=== PATIENT | female | born 1940 | race Caucasian/White ===

== ENCOUNTER 2017-10-27 11:29 | Outpatient (CLI) | payer MEDICARE, OTHER | END 2017-10-27 11:30 | disposition home or self-care (01) | LOC: BICMAMMO 11:29 | PROVIDERS: ATTEND Family Medicine | DX: Z12.31 Encounter for screening mammogram for malignant neoplasm of breast (principal); N64.89 Other specified disorders of breast | CPT/HCPCS: 77063; 77067 ==

== ENCOUNTER 2017-11-10 09:41 | Outpatient (CLI) | payer MEDICARE, OTHER | END 2017-11-10 09:42 | disposition home or self-care (01) | LOC: BICMAMMO 09:41 | PROVIDERS: ATTEND Family Medicine | DX: N64.89 Other specified disorders of breast (principal); Z80.3 Family history of malignant neoplasm of breast | CPT/HCPCS: 77065; G0279 ==

== ENCOUNTER 2018-04-29 16:39 | Inpatient (IN) | payer MEDICARE, OTHER ==
[~2018-04-29 16:39] MED LIST: ISOVUE-370 76%-LOCM 1 ML ONE; Iopamidol 370 76% 50 ML VIAL FS ONE
[2018-04-29 17:36] LABS: #Eosinphils 0.1 thou/uL (0.0-0.7); #Lymphocytes 4.1 thou/uL (1.20-3.40); #Monocytes 0.7 thou/uL (0.11-0.59); #Neutrophils 8.3 thou/uL (1.40-6.50); %Basophils 0.2 % (0.0-1.0); %Eosinophils 0.8 % (0.0-10.0); %Lymphocytes 30.7 % (21.0-51.0); %Monocytes 5.5 % (0.0-10.0); %Neutrophils 62.8 % (42.0-75.0); Hemoglobin 12.2 g/dL (12.0-16.0); Mean Corpuscular HGB CONC 34.1 g/dL (32.0-36.0); Mean Corpuscular Hemoglobin 30.2 pg (27.0-31.0); Mean Corpuscular Volume 88.7 fL (78.0-98.0); Platelet Count 249 thou/uL (130-400); RBC Distribution Width 11.7 % (11.5-14.5); Red Blood Cell (RBC) Count 4.04 mill/uL (4.20-5.40); White Blood Cell (WBC) Count 13.2 thou/uL (4.8-10.8)
[2018-04-29 17:54] LABS: ALT (SGPT) 18 U/L (8-55); AST (SGOT) 21 U/L (5-34); Albumin 4.5 g/dL (3.4-4.8); Alkaline Phosphatase 95 U/L (40-150); Anion Gap 14 mmol/L (10-20); BUN (Urea Nitrogen) 23 mg/dL (9.8-20.1); Bilirubin, Total 0.4 mg/dL (0.2-1.2); Calc. Creatinine Clearance 0 mL/min (70-130); Calcium 10.3 mg/dL (7.8-10.44); Carbon Dioxide 27 mmol/L (23-31); Chloride 102 mmol/L (98-107); Estimated GFR-MDRD 49; Globulin 2.8 g/dL (2.4-3.5); Glucose 111 mg/dL (83-110); Lipase 16 U/L (8-78); Magnesium 2.9 mg/dL (1.6-2.6); Potassium 4.6 mmol/L (3.5-5.1); Protein, Total 7.3 g/dL (6.0-8.3); Sodium 138 mmol/L (136-145)
--- NOTE | 2018-04-29 19:59 | CT ---
CT ABDOMEN AND PELVIS 04/29/18 COMPARISON: None. HISTORY: Constipation, pain, evaluate for small bowel obstruction. TECHNIQUE: Serial axial CT imaging at 5 mm intervals from lung bases through pubic symphysis with intravenous an d oral contrast. Coronal reformatted imaging obtained. FINDINGS: Mild linear density noted in both lower lobes suggesting atelectasis. No free intraperitoneal air is noted. The liver, gallbladder, and spleen appear grossly unremarkable. The pancreas and adrenal glands are u nremarkable. Kidneys are grossly unremarkable as well. There is prominent stool seen throughout the colon as well as fluid material within the colon from th e level of the cecum through the level of the sigmoid colon. There is a transition from stool filled moderately distended colon to decompressed colon on image 69 is suspicious for an underlying colonic lesion. No evidence for small bowel obstruction is noted. There is a small hiatal hernia. Scattered small paraceliac and retroperitoneal nodes. No enlarged retroperitoneal nodes are seen. The re are mildly prominent nodes along the external iliac chain bilaterally and in the region of bilater al pelvic sidewalls. This includes right sided external iliac chain node measuring up to 1.1 cm in sh ort axis dimension, left external iliac chain node measuring up to 1.1 cm in short axis dimension, an d pelvic sidewall nodes measuring up to 8 mm on the right and 1 cm on the left. Uterus appears surgic ally absent. Osseous structures demonstrate no worrisome lytic or blastic bone lesion. There is lower lumbar spine facet hypertrophic change. Old fractures are seen involving bilateral sup erior and inferior pubic rami. IMPRESSION: The colon from the level of the cecum to the level of the sigmoid colon is moderately distended and c ontains stool and fluid material with a transition to a decompressed sigmoid colon with findings susp icious for an underlying colonic mass lesion on the basis of colon cancer. GI consultation for evalua tion via colonoscopy advised. Small nodes are seen within the retroperitoneum and mildly enlarged nod es are seen in the pelvis which could potentially be metastatic in nature. No discrete liver lesion i dentified. No evidence for small bowel obstruction or free intraperitoneal air. Results called to Dr. Fish at 7:35 p.m., 04/29/18. Code CR POS: MARI
--- NOTE | 2018-04-29 20:16 | RAD ---
PORTABLE SUPINE KUB: 04/29/18 COMPARISON: None. HISTORY: Abdominal pain. FINDINGS: there is contrast media within the urinary bladder and multiple nondistended loops of small bowel wit hin the central abdomen. No contrast media is appreciated within the colon. Supine imaging limits ass essment for obstruction and free intraperitoneal air. IMPRESSION: KUB as detailed above. POS: HAILE
[2018-04-29 20:47] LABS: Bilirubin Negative (Negative); Blood, Urine Negative (Negative); Clarity CLEAR (Clear); Glucose, Urine (Dipstick) Negative (Negative); Leukocyte Moderate (Negative); Nitrite Negative (Negative); Protein, Urine (Dipstick) Negative (Neg-Trace); Specific Gravity, Urine 1.017 (1.002-1.036); Urobilinogen 0.2 mg/dL (0.2-1.0); pH, Urine 7.5 (5.0-9.0)
[2018-04-29 20:48] LABS: Bacteria/HPF None Seen HPF (None Seen); Hyaline Casts/LPF 0-3 HYALINE CAST LPF (0-3 Hyaline); Pathc Cast-AUWi Flag 0.14 (0-2.49); RBC/HPF 0-3 HPF (0-3); Squamous Epithelial 0-3 HPF (0-3)
[2018-04-29] MEDS ORDERED: GoLYTELY 4,000 ml Bottle PO SCH (22:30)
--- NOTE | 2018-04-29 22:41 | CON ---
DATE OF CONSULTATION: 04/29/2018 REQUESTING PHYSICIAN: Dr. Fish ATTENDING SURGEON: Dr. Ansari. HISTORY OF PRESENT ILLNESS: The patient is an 78-year-old woman who presents to the [facility] with insidious onset of abdominal pain primarily 5 days ago. She does not recall havi ng any discomfort prior to this. She does have history of intermittent constipation, but she states this is her normal bowel pattern. The patient denies any recent weight loss or weight gain. No nigh t sweats or chills. Her last colonoscopy was [address] Knott which showed a polyp but otherw ise was unremarkable. Today, she presented to the Emergency Department because she was having increa sing pain and still no bowel movement. She states that she does pass some gas. She tried a bottle o f mag citrate half a bottle last night and the remainder this morning without any results. ALLERGIES: CODEINE and SULFA. CURRENT MEDICATIONS: Simvastatin, vitamin D3, enalapril, Detrol, amitriptyline. PAST MEDICAL HISTORY: Osteoporosis, hyperlipidemia, hypertension. PAST SURGICAL HISTORY: Hysterectomy. FAMILY MEDICAL HISTORY: Hypertension and diabetes. SOCIAL HISTORY: The patient denies drug, tobacco or alcohol use. She currently lives at home with h er . REVIEW OF SYSTEMS: Ten-point review of systems is negative, unless otherwise stated. PHYSICAL EXAMINATION: VITAL SIGNS: Blood pressure 144/101, heart rate 95, respirations 18, oxygen saturation 96% on room a ir, temperature is 99.6. GENERAL: The patient is resting comfortably in the ER bed. She is awake, alert, and oriented x3. HEENT: Head is normocephalic, atraumatic. Eyes: Extraocular motions intact. PERRLA bilaterally. Ears are atraumatic without discharge. Nose is atraumatic without discharge. Oropharynx is clear. NECK: Nontender. Trachea is midline with no JVD. LUNGS: Clear to auscultation with good inspiratory and expiratory effort. HEART: Regular rate and rhythm. ABDOMEN: Distended, slightly tense and minimally tender to palpation primarily to the lower extremit ies. The patient states that this bloating is new in part of her concern. Pelvis is stable. EXTREMITIES: Neurovascularly intact x4 with no pitting edema noted in the lower extremities. BACK: Nontender. Negative CVA tenderness. LABORATORY DATA: White blood cell count 13.1, hemoglobin 12.2, hematocrit 35.8, platelets 249. [place] um 138, potassium 4.6, chloride 102, CO2 is 27, BUN 23, creatinine 1.08, glucose 111. LFTs are unrem arkable. Lipase 16, magnesium 2.9. Urinalysis shows moderate leukocyte esterase, negative nitrite, 4-6 wbc's. RADIOGRAPHIC INTERPRETATIONS: CT of the abdomen and pelvis shows lesion in the colon causing a parti al large bowel obstruction. The colon from the level of the cecum to the level of the sigmoid colon is moderately distended and contains stool and fluid material with a transition to a decompressed sig moid colon with findings suspicious for an underlying colonic mass lesion. There are also noted with in the retroperitoneum, mildly enlarged nodes in the pelvis. There are no discrete lesions of the li diego identified or evidence of small-bowel obstruction or free intraperitoneal air. ASSESSMENT AND PLAN: 1. Colonic mass. 2. Abdominal pain. Our recommendation would be that the patient have a bowel prep with Bre shukla and GI consultat [facility] for colonoscopy to evaluate the mass and location. We will follow along for surgical interventio n as needed. The evaluation and examination were done with Dr. Ansari in the emergency department. Deny woods would also recommend ordering tumor markers tonradha.
[2018-04-29] MEDS ORDERED: Sodium Chloride 0.45% 1,000 ML IV SCH (23:45)
[2018-04-29 23:47] VITALS: BMI 24.7
[2018-04-29] MEDS: Fentanyl 100 MCG/2 ML VIAL SLOW IVP PRN (23:59)
[2018-04-30] MEDS: Fentanyl 100 MCG/2 ML VIAL SLOW IVP PRN (04:15)
[2018-04-30] MEDS ORDERED: Ondansetron HCl/PF 4 MG/2 ML Vial SLOW IVP PRN (06:27)
[2018-04-30] MEDS ORDERED: Ondansetron HCl/PF 4 MG/2 ML Vial SLOW IVP SCH (06:30)
[2018-04-30] MEDS ORDERED: Temazepam 15 MG CAP PO PRN (07:20)
[2018-04-30] MEDS ORDERED: Loratadine 10 MG TAB PO PRN (07:20)
[2018-04-30] MEDS ORDERED: cloNIDine 0.1 MG TAB PO PRN (07:20)
[2018-04-30] MEDS ORDERED: Ondansetron ODT 4 MG TAB PO PRN (07:20)
[2018-04-30] MEDS ORDERED: Sodium Chloride 0.65% Nasal 44 ML BOT EA NARE PRN (07:20)
[2018-04-30] MEDS ORDERED: Senokot 8.6 MG TAB PO PRN (07:20)
[2018-04-30] MEDS ORDERED: Mag-Al 1200 mg/1200 mg/30 ML UDCUP PO PRN (07:20)
[2018-04-30] MEDS ORDERED: Artificial Tears 18 DROP/0.9 ML EA EYE PRN (07:20)
[2018-04-30] MEDS ORDERED: Milk Of Magnesia 30 ML UDCUP PO PRN (07:20)
[2018-04-30] MEDS ORDERED: Eucerin (Mineral Oil/Petrolatum,White) 30 gm Jar TOP PRN (07:20)
[2018-04-30] MEDS ORDERED: Diabetic Tussin 200 MG/10 ML UDCUP PO PRN (07:20)
[2018-04-30] MEDS ORDERED: HYDROcodone/Acetaminophen 5/325 mg Tablet PO PRN (07:21)
[2018-04-30] MEDS ORDERED: Fleet Enema 133 ML BOT FS SCH (08:00)
[2018-04-30] MEDS: Calcium Carbonate + Vit D 1 TAB PO SCH ×2 (09:58→18:29)
[2018-04-30] MEDS ORDERED: Fleet Enema 133 ML BOT PR SCH (10:00)
[2018-04-30] MEDS: Sodium Chloride 0.9% 1,000 ML IV SCH ×3 (10:02→22:20)
[2018-04-30] MEDS: Multivitamin W/ Minerals 1 TAB PO SCH (10:03)
[2018-04-30] MEDS: Famotidine 20 MG TAB PO SCH (10:03)
[2018-04-30] MEDS: Enoxaparin Sodium 40 MG/0.4 ML SYRINGE SC SCH (10:03)
[2018-04-30] MEDS: DULoxetine 60 MG CAP PO SCH (10:03)
[2018-04-30] MEDS: Zinc Sulfate 220 MG CAP PO SCH (10:04)
[2018-04-30] MEDS: TROSPIUM 20 MG TABLET PO SCH (10:04)
[2018-04-30] MEDS ORDERED: Ertapenem 1 GM in Sodium Chloride 0.9% 100 ML IVPB PRN (10:30)
--- NOTE | 2018-04-30 10:43 | HP ---
PRIMARY CARE PHYSICIAN: Dr. Joyce Tony. REASON FOR ADMISSION: Lower abdominal pain, suspected for large bowel partial obstruction. HISTORY OF PRESENT ILLNESS: An 78-year-old female who came to emergency room last night with complaint of lower abdominal pain. The patient reports that her last bowel movement was on Tuesday. Since then, she did not have any bowel movement. She was feeling constipated. She was feeling her abdomen was bloated and distended. She was having continuous intermittent, crampy abdominal pain. She was not having nausea and vomiting at home, but when she started preparing herself with GoLYTELY last night, she felt even more bloated and had vomiting and feeling nausea. She denies any weight loss. Her appetite was normal. She did not have any hematochezia or melena. She did not have any fever or chills. Patient reports that about 3 years ago she had a colonoscopy done by Dr. Knott which showed polyp which was removed and the patient was instructed to get repeat colonoscopy in 5 years. Last night, the patient was evaluated in the emergency room. She had a CT of the abdomen and pelvis which showed colon from the level of cecum to the level of sigmoid colon , was distended and contained fluid and stool. There was concern of colonic mass and that is why the General Surgery was consulted from ER and subsequently GI was also consulted. When I saw this morning, the patient was feeling sleepy as she did not sleep from GoLYTELY preparation. Her was present at bedside who provided history. PAST MEDICAL HISTORY: Dyslipidemia, hypertension, history of colon polyp, osteoporosis/osteopenia. PAST SURGICAL HISTORY: Hysterectomy, colonoscopy with polypectomy. PAST PSYCHIATRIC HISTORY: Anxiety and depression. SOCIAL HISTORY: Patient is and lives at home with her . No history of tobacco, alcohol or illicit drug abuse. The patient is retired. FAMILY HISTORY: No strong family history of premature CAD< CVA or cancer. ALLERGIES: CODEINE and SULFA. CURRENT HOME MEDICATIONS: Zocor 20 mg p.o. at bedtime, vitamin D3 one tablet daily, enalapril 7.5 mg p.o. daily, Detrol 1 mg daily, amitriptyline 25 mg p.o. daily, Cymbalta 60 mg p.o. daily, multivitamin 1 tablet p.o. daily, zinc sulfate 220 mg daily, [place] 5 one tablet q.4 hourly p.r.n. REVIEW OF SYSTEMS: REVIEW OF SYSTEMS: The following complete review of systems was negative, unless otherwise mentioned in the HPI or below: Constitutional: Weight loss or gain, ability to conduct usual activities. Skin: Rash, itching. Eyes: Double vision, pain. ENT/Mouth: Nose bleeding, neck stiffness, pain, tenderness. Cardiovascular: Palpitations, dyspnea on exertion, orthopnea. Respiratory: Shortness of breath, wheezing, cough, hemoptysis, fever or night sweats. Gastrointestinal: Poor appetite, abdominal pain, heartburn, nausea, vomiting, constipation, or diarrhea. Genitourinary: Urgency, frequency, dysuria, nocturia. Musculoskeletal: Pain, swelling. Neurologic/Psychiatric: Anxiety, depression. Allergy/Immunologic: Skin rash, bleeding tendency. Please see my HPI for pertinent positive and negative. All other review of systems reviewed and negative except as mentioned in the HPI. EMERGENCY ROOM COURSE: Patient was given GoLYTELY and IV fluid. PHYSICAL EXAMINATION: VITAL SIGNS: On arrival, blood pressure 153/80, pulse 109, respiratory rate 18 , temperature 99.6, saturation 97% on room air, weight 60.9 kilograms. GENERAL: Patient is currently sleepy from not having sleep last night, mild discomfort. The patient is hungry. HEENT: Head, normocephalic, atraumatic. Eyes: Pupils round, reactive to light. Extraocular muscle intact. ENT: Dry appearing mucous membrane, no oral lesion, no pharyngeal erythema, no exudate. NECK: Supple, no JVD, no meningeal signs of irritation. LUNGS: Clear to auscultation without any rhonchi or rales. CARDIAC: S1, S2 regular. No murmur, no gallop, no rub. ABDOMEN: Slightly bloated, diffusely tender in lower part. Bowel sounds hypoactive. Mild distention noted. No peritoneal sign, no guarding, no rigidity, no rebound. BACK: Unremarkable, no CVA tenderness. EXTREMITIES: Upper extremity passive movement of all joints are normal. Lower extremity passive movement of all joints are normal. No edema. Good distal pulsation, no calf tenderness. SKIN: No skin rash. HEMATOLOGICAL: No lymphadenopathy. PSYCHIATRIC: Normal affect. NEUROLOGIC: Nonfocal examination. SIGNIFICANT LABORATORY DATA: Abdomen and pelvis done in the emergency room which showed colon from the level of cecum to the level of sigmoid colon is distended with stool and fluid suspicious for underlying colonic mass, small lymph nodes noted in the retroperitoneum and mildly enlarged lymph nodes in pelvis. X-ray abdomen showed no acute process, distended loops of small bowel. CBC: WBC 13.2, hemoglobin 12.2, platelet 249. BMP: Sodium 138, potassium 4.6, chloride 102, carbon dioxide 27, anion gap 14, BUN 23, creatinine 1.08, glucose 111, calcium 10.3, magnesium 2.9. LFT: AST 21, ALT 18, alkaline phosphatase 95, albumin 4.5. CEA 0.77, lipase 16. Urinalysis, leukocyte moderate. ASSESSMENT AND PLAN: 1. Nausea, vomiting, lower abdominal pain, abdominal distention with CT finding of stool fluid level in the cecum to sigmoid colon, suspected for partial large bowel obstruction secondary to colonic mass. The patient is getting GoLYTELY preparation and patient will need a colonoscopy for further evaluation. Depending upon finding, the patient will need a biopsy of the lesion and then General Surgery already on the case and they will decide when to do surgery if needed. The patient's prefers to be done on Tuesday because he is off his dialysis days, so he can stay with about. The patient reports that she cannot stay longer n.p.o. and per her she wants surgery in case if needed, then it can be done any time. Her pain will be controlled with morphine p.r.n. basis with GI already consulted, General Surgery already consulted. GI will do colonoscopy later on today. The patient is n.p.o. The patient is getting IV fluid. 2. Hypertension. If blood pressure allows, then we will continue enalapril 10 mg p.o. daily. 2. Dyslipidemia. We will continue Lipitor 10 mg p.o. at bedtime. 3. Anxiety and depression. We will continue Cymbalta 60 mg p.o. daily. 5. Mild dehydration. The patient is on IV fluid. 6. Asymptomatic bacteriuria. We will send urine culture. 7. Deep venous thrombosis prophylaxis. Lovenox 40 mg subcu daily. Gastrointestinal prophylaxis, Pepcid 20 mg p.o. daily. CODE STATUS: The patient is FULL CODE. Patient's is surrogate decision maker. Disposition plan based on clinical course. In case if this patient needs any surgery, then her stay will be more than 2 midnights. Plan of care discussed with the patient and her at bedside. SAMYD
--- NOTE | 2018-04-30 12:14 | CON ---
DATE OF CONSULTATION: 04/30/2018 GI INPATIENT CONSULTATION NOTE REQUESTING PHYSICIAN: Dr. Ansari. REASON FOR CONSULTATION: Colonic obstruction. HISTORY OF PRESENT ILLNESS: Gena Lerner is a very pleasant 78-year-old woman who has previously b een seen by my GI colleague, Dr. Jose Knott. She has had a couple of colonoscopies in the past. Her last colonoscopy was in 11/2014 and this demonstrated two small right-sided colon polyps, they were both removed. One was a tubular adenoma and the other was hyperplastic. The patient has no chronic abdominal symptoms except for some tendency toward constipation. However, for the past week, she has had a slowly progressive abdominal pain in the lower abdomen and especially in the left side of the abdomen. This has come along with worsening constipation. She had no bowel movement over the past w makah. There has been no recent weight loss, fever or night sweats or chills. She had no nausea or vo miting until this morning. The pain and distention worse and then she presented for evaluation. She had a CT scan which appears to show a colonic obstruction at the level of the sigmoid colon with fin dings suspicious for underlying colonic mass lesion. She drank about 3/4 of a bowel prep overnight a nd then eventually had vomiting of clear emesis. She has had a couple of large bowel movements since then, though these are not really clear. Dr. Ansari ordered some enemas to be given this morning as well. We are consulted for further evaluation of what appears to be a sigmoid mass causing colonic o bstruction. REVIEW OF SYSTEMS: Full review of systems including constitutional, head, eyes, ears, nose, throat, GI, , cardiovascular, respiratory, musculoskeletal, and neurologic systems is negative except as no ximena in the HPI. PAST MEDICAL HISTORY: Osteoporosis, hyperlipidemia, hypertension. PAST SURGICAL HISTORY: Hysterectomy. FAMILY HISTORY: Significant for hypertension and diabetes. SOCIAL HISTORY: No tobacco, alcohol, or drug use. She lives at home with her . ALLERGIES: CODEINE and SULFA. OUTPATIENT MEDICATIONS: Simvastatin, vitamin D3, enalapril, Detrol, amitriptyline. PHYSICAL EXAMINATION: VITAL SIGNS: Temperature 98.3, pulse 94, blood pressure 128/79, 96% oxygen saturation on room air. GENERAL: An 78-year-old woman lying in bed comfortably, in no distress. NEUROLOGIC: She is alert and oriented. She is able to answer questions appropriately. SKIN: No jaundice, no rash visible or palpable. EYES: No scleral icterus. Extraocular movements intact. ENT: Mucous membranes moist, no oral lesions. LYMPH: No submandibular, supraclavicular lymphadenopathy. THYROID: Nontender to palpation. HEART: Regular rate and rhythm. LUNGS: Clear to auscultation bilaterally. ABDOMEN: Bowel sounds are hypoactive. The abdomen is moderately distended and dull to percussion. She is tender to palpation diffusely, but particularly in the left side and in the lower abdomen. No guarding or rebound tenderness. EXTREMITIES: No peripheral edema. VESSELS: Radial pulses 2+ bilaterally. NEUROLOGICAL: Cranial nerves II-XII intact bilaterally. No focal deficits. LABORATORY STUDIES: WBC 13.2, hemoglobin 12.2, MCV 88.7, platelets 249. Sodium 138, potassium 4.6, BUN 23, creatinine 1.08, magnesium 2.9, total bilirubin 0.4, alkaline phosphatase 95, AST 21, ALT 18, albumin 4.5, lipase 16. CEA is only 0.77. Urinalysis shows 4-6 wbc's and moderate leukocyte estera se. IMPRESSION AND PLAN: 1. Colonic obstruction per CT scan. 2. Possible sigmoid mass per CT scan. The patient's presentation and imaging findings are concernin g for possible mass lesion in the sigmoid colon, now causing obstructive symptoms. She has done the best that she could with the bowel prep and is getting further enema prep this morning. Dr. Elan razo requested endoscopic evaluation today for further diagnosis, with eventual surgery likely. I agree with this plan. We will plan for lower endoscopic evaluation later today and keep in touch with the surgical service. I discussed this with the patient and her that they desire to proceed. Thank you for the consultation. Please call any time with questions or concerns.
[2018-04-30] MEDS ORDERED: Fentanyl 100 MCG/2 ML VIAL ONE (12:21)
[2018-04-30] MEDS ORDERED: Midazolam HCl 2 mg/2 ml Vial ONE (12:21)
[2018-04-30] MEDS ORDERED: Sodium Chloride 0.9% 20 ML ONE (12:46)
[2018-04-30] MEDS ORDERED: PHENYLEPHRINE-NS 100 MCG/ML 10 ML SYRINGE ONE ×2 (13:30→14:18)
[2018-04-30] MEDS ORDERED: PROPOFOL 200 MG/20 ML VIAL ONE ×2 (13:30)
[2018-04-30] MEDS ORDERED: Calcium Chloride 1 GM/10 ML Abboject SYRINGE ONE (13:30)
[2018-04-30] MEDS ORDERED: Ondansetron HCl/PF 4 MG/2 ML Vial ONE (13:30)
[2018-04-30] MEDS ORDERED: Succinylcholine Chloride 20 MG/ML 10 ml SYRINGE FS ONE (13:30)
[2018-04-30] MEDS ORDERED: Ondansetron HCl/PF 4 MG/2 ML Vial IVP PRN (16:04)
[2018-04-30] MEDS ORDERED: Promethazine HCl 25 MG/ML VIAL IM PRN ×2 (16:04→16:10)
[2018-04-30] MEDS ORDERED: Promethazine HCl 25 MG/ML VIAL SLOW IVP PRN (16:04)
[2018-04-30] MEDS ORDERED: diphenhydrAMINE 50 MG/ML VIAL IVP PRN (16:10)
[2018-04-30] MEDS ORDERED: diphenhydrAMINE 25 MG CAP PO PRN (16:10)
[2018-04-30] MEDS ORDERED: HYDROmorphone 10 mg/100 ml CADD IVPB PRN (16:10)
[2018-04-30] MEDS ORDERED: Naloxone HCl 0.4 mg/ml Vial IV PRN (16:10)
[2018-04-30] MEDS ORDERED: diphenhydrAMINE 50 MG/ML VIAL IM PRN (16:10)
[2018-04-30] MEDS ORDERED: Communication Order-Pharmacy FS SCH (16:15)
--- NOTE | 2018-04-30 17:48 | RAD ---
FRONTAL RADIOGRAPH CHEST: Date: 04-30-18 Comparison: 01-22-15 History: Evaluate line placement. FINDINGS: The patient is imaged in the supine position, limiting assessment for pneumothorax and pleural fluid. There is a right sided vascular catheter, distal tip overlying the region of the right atrium. Nasog astric tube and Dobbhoff tube extend into the epigastric region. No lobar consolidation or alveolar e sidney. IMPRESSION: Lines and tubes as above. POS: HAILE
--- NOTE | 2018-04-30 17:51 | RAD ---
KUB: Date: 04-30-18 Comparison: 04-29-18 History: Abdominal pain. FINDINGS: There is contrast media within the right abdomen, likely within dilated colon. Nasogastric tube exten ds into the region of the gastric body. Dobbhoff feeding tube extends into the region of the proximal jejunum. Supine imaging limits assessment for free air and small bowel obstruction. IMPRESSION: KUB as above. POS: HAILE
--- NOTE | 2018-04-30 17:51 | OP ---
DATE OF SURGERY: 04/30/2018 GASTROINTESTINAL ENDOSCOPY NOTE SURGEON: Gustavo Thompson M.D. BLACK OXIDE OPERATOR SURGEON: None. PROCEDURE: Flexible sigmoidoscopy. POSTOPERATIVE DIAGNOSES: 1. Sigmoid mass. 2. Colonic obstruction secondary to sigmoid mass based on imaging. This is a preoperative endoscopi c assessment prior to planned surgery. MEDICATIONS: See anesthesia record. FINDINGS: After discussion of the risks, benefits and alternatives of the procedure, informed consen t was obtained and witnessed. Pre-endoscopic cardiopulmonary examination was satisfactory. Timeout was performed before sedation was achieved. Sedation was achieved with anesthesia assistance in the endoscopy unit. Digital rectal exam was performed. This demonstrated some moderate rectal prolapse as well as large external hemorrhoids. A Pentax adult colonoscope was inserted into the anus and pas sed forward in the usual fashion. The patient's rectum and sigmoid colon had a large amount of solid stool. This made visualization difficult due to the large amount of stool, I was unable to examine beyond 20 cm. I was not able to reach the area in question where visualized, the colonic mucosa appe ared normal. The colonoscope was completely withdrawn and the patient was moved to the operating ayleen m. I discussed the case with Dr. Ansari. There were no immediate post-procedure complications. The patient tolerated the procedure well. IMPRESSION: 1. Solid stool obscuring view of the rectum and sigmoid colon. Examined to 20 cm. 2. External hemorrhoids. 3. Rectal prolapse. RECOMMENDATION: Proceed with surgery. I discussed with Dr. Ansari.
[2018-04-30] MEDS: Ketorolac Tromethamine 30 MG/ML VIAL IVP SCH (18:32)
[2018-04-30] MEDS: Atorvastatin Calcium 10 MG TAB PO SCH (21:00)
--- NOTE | 2018-04-30 21:40 | OP ---
DATE OF OPERATION: 04/30/2018 PREOPERATIVE DIAGNOSIS: Acute large bowel obstruction. POSTOPERATIVE DIAGNOSIS: Acute large bowel obstruction. OPERATIONS PERFORMED: 1. Placement of left subclavian central venous catheter. 2. Exploratory laparotomy. 3. Sigmoidectomy with end colostomy. 4. Placement of feeding nasojejunal tube. SURGEON: Artem Ansari D.O. ANESTHESIA: General endotracheal. ESTIMATED BLOOD LOSS: 200 mL FLUIDS GIVEN: 3500 mL crystalloids. INSTRUMENTS: Sponge and instrument count certified as correct x2. URINARY OUTPUT: 250 mL COMPLICATIONS: None apparent at the time of operation. INDICATIONS FOR PROCEDURE: An 78-year-old woman presented to the emergency department with over 1-week history of no bowel movement or flatus. The patient underwent a CT scan of the abdomen and pelvis which revealed an obstructing sigmoid colonic mass. We attempted to bowel prep this patie nt in lieu of a colonoscopy without success. Flexible sigmoidoscopy was attempted by Gastroenterolog y again without success. The patient was brought to the operating room for exploration. FINDINGS: Consistent with distal sigmoid colon obstruction with markedly thick walled colonic wall. No evidence of perforation or abscess. DESCRIPTION OF PROCEDURE: Informed consent was obtained from the patient who was brought to the oper ating room and placed in supine position. Following general anesthesia, Terry catheter was placed to bedside drain. Nasogastric tube was inserted and placed to wall suction. Right chest wall was ster ilely prepped and draped in usual fashion. The skin below the right clavicle was anesthetized with 1 % lidocaine. Right subclavian vein was cannulated with an 18-gauge introducer needle returning dark venous blood. A guidewire was passed through this needle and placed in the right subclavian vein wit hout resistance. Needle was withdrawn over the guidewire. A stab incision was made adjacent to the guidewire using an 11 scalpel. The dilator was passed over the guidewire dilating subcutaneous tissu es. Dilator was removed and a triple-lumen central venous catheter was advanced over the guidewire a nd placed in the right subclavian vein without resistance and stopping at the 15 cm julian. Guidewire was removed. Dark venous blood was aspirated from all 3 ports which were individually flushed with s mamta. Catheter was secured to anterior chest wall using 3-0 silk suture at 2 points. Sterile dress ing was applied. I then turned my attention to the abdomen which was sterilely prepped and draped in usual fashion. I went and scrubbed, gowned and regloved sterilely. A midline incision was made using #10 scalpel. Incision was carried through the subcutaneous tissues maintaining hemostasis using cautery. Fascia was incised in midline exposing the peritoneum beneath which was grasped x2 with hemostats. The peritoneal cavity was sharply entered using scalpel. Inci alejo was then extended superiorly and posteriorly. Markedly dilated loops of the large intestine wer e encountered involving all large bowels to the level of the distal sigmoid colon. Small bowel was r un from the ligament of Treitz down to terminal ileum, finding no masses. Liver was palpated free of any abnormalities. Normal gallbladder was noted in the usual anatomic location. Spleen was palpate d in the left upper quadrant. No masses present. The previous nasogastric tube was palpated within the gastric lumen. At this juncture, feeding nasojejunal tube was inserted by Anesthesia, tip of whi ch was palpated by myself within the gastric lumen. I manipulated the tip of this catheter into prox imal small bowel without resistance. I then turned my attention to the colon. It was decided to pro ceed with a sigmoidectomy. The left colon was mobilized along the white line of Toldt. This was acc omplished using Metzenbaum scissors alternated with cautery. I mobilized the colon towards the pelvi s approaching a hard, but partially mobile mass within the sigmoid colon. Dissection was carried cristhian n through the distal part of this to the level of normal caliber rectosigmoid junction. I then creat ed a rent through the mesorectum through which a contour stapler was introduced and the bowel was div ided. I mobilized the left colon then upwards, taken down the splenic flexure using cautery with goo d hemostasis. Care was taken to avoid injury to underlying bowel. Once this was accomplished, I the n made a rent through the descending colon mesentery about the junction of the descending and sigmoid colon. Reloaded contour stapler was introduced and the bowel was divided. Mesentery of the sigmoid colon specimen was serially divided using LigaSure device with good hemostasis. The specimen was pa ssed off the operative field for pathology. Operative site was copiously irrigated with saline, noti ng good hemostasis in place. I then proceeded to make a core incision in the left lower quadrant are a chosen for colostomy. This was accomplished using #10 scalpel. The incision was carried down to t he level of the fascia. A crucifix incision was made here using cautery. I introduced a tonsil clam p through this defect bringing this into the peritoneal cavity. The core defect was dilated to 3 fin gerbreadths. A Pauline forceps was then introduced through this defect, grasping the staple end of t he descending colon which was pulled through and secured within the abdominal cavity using 3-0 silk s uture at 3 points. At this juncture, all sponges and instruments were removed and accounted for. I placed two stay sutures at both ends of the rectal stump. This was done using a 2-0 Prolene. I then placed a sheet of Seprafilm in the deep pelvis and returned the small bowel to normal anatomic locat ion. A second sheet of Seprafilm was placed over the small bowel and omentum was drawn over the rest of the viscera. Fascia was approximated in the midline using a running stitch of #1 single stranded PDS. Subcutaneous tissues were pulse lavaged with 3 liters of sterile saline. At this juncture, we proceeded to change gown and gloves with fresh instruments. Deep subcutaneous t issues were approximated using interrupted sutures of 3-0 Vicryl. Skin incision was closed using a r unning stitch of 3-0 Monocryl suture in subcuticular fashion. Dermabond was applied over incisional closure. I then turned my attention to the colostomy site. Staple line was excised using Zuniga sciss ors. A functional Annette colostomy was perfected using interrupted sutures of 2-0 chromic. Colostom y appliance was then put in place. The patient tolerated the operation without any apparent complication and was returned to recovery ro in satisfactory condition.
[2018-05-01] MEDS: Ketorolac Tromethamine 30 MG/ML VIAL IVP SCH ×5 (00:32→23:37)
[2018-05-01 04:32] LABS: #Lymphocytes 2.7 thou/uL (1.20-3.40); #Neutrophils 10.1 thou/uL (1.40-6.50); %Eosinophils 0.1 % (0.0-10.0); %Lymphocytes 19.6 % (21.0-51.0); %Neutrophils 73.3 % (42.0-75.0); Hemoglobin 11.2 g/dL (12.0-16.0); Mean Corpuscular HGB CONC 32.4 g/dL (32.0-36.0); Mean Corpuscular Hemoglobin 28.9 pg (27.0-31.0); Mean Corpuscular Volume 89.2 fL (78.0-98.0); Mean Platelet Volume 8.5 fL (7.4-10.4); Platelet Count 280 thou/uL (130-400); RBC Distribution Width 11.8 % (11.5-14.5); Red Blood Cell (RBC) Count 3.89 mill/uL (4.20-5.40); White Blood Cell (WBC) Count 13.8 thou/uL (4.8-10.8)
[2018-05-01] MEDS: Sodium Chloride 0.9% 1,000 ML IV SCH ×2 (04:59→12:06)
[2018-05-01 05:04] LABS: ALT (SGPT) 33 U/L (8-55); AST (SGOT) 31 U/L (5-34); Albumin 2.8 g/dL (3.4-4.8); Alkaline Phosphatase 74 U/L (40-150); Anion Gap 11 mmol/L (10-20); BUN (Urea Nitrogen) 27 mg/dL (9.8-20.1); Bilirubin, Total 0.4 mg/dL (0.2-1.2); Calc. Creatinine Clearance 48 mL/min (70-130); Calcium 7.7 mg/dL (7.8-10.44); Carbon Dioxide 26 mmol/L (23-31); Chloride 106 mmol/L (98-107); Estimated GFR-MDRD 63; Globulin 1.7 g/dL (2.4-3.5); Glucose 158 mg/dL (83-110); Magnesium 3.5 mg/dL (1.6-2.6); Phosphorus 3.7 mg/dL (2.3-4.7); Potassium 4.9 mmol/L (3.5-5.1); Protein, Total 4.5 g/dL (6.0-8.3); Sodium 138 mmol/L (136-145)
[2018-05-01] MEDS ORDERED: Prevnar 13-Val Conj/PF 0.5 ML SYRINGE IM ONE (09:00)
[2018-05-01] MEDS: Calcium Carbonate + Vit D 1 TAB PO SCH ×2 (09:05→17:13)
[2018-05-01] MEDS: Famotidine 20 MG TAB PO SCH (09:06)
[2018-05-01] MEDS: TROSPIUM 20 MG TABLET PO SCH (09:06)
[2018-05-01] MEDS: Multivitamin W/ Minerals 1 TAB PO SCH (09:06)
[2018-05-01] MEDS: Zinc Sulfate 220 MG CAP PO SCH (09:06)
--- NOTE | 2018-05-01 09:23 | PRG ---
DATE OF SERVICE: 05/01/2018 SUBJECTIVE: Dr. Ansari performed a sigmoidectomy with colostomy yesterday afternoon. The procedure w ent well. The patient is currently doing well, hemodynamically stable in the ICU, abdominal pain is minimal. She has a nasogastric tube with atrophic feeds going. There is no output from the colostom y as yet. PHYSICAL EXAMINATION: VITAL SIGNS: Temperature 98.1, blood pressure 123/66, pulse 100, 95% oxygen saturation on room air. GENERAL: No acute distress. HEART: Regular rate and rhythm. LUNGS: Clear to auscultation bilaterally. ABDOMEN: Bowel sounds are hypoactive, soft, some mild diffuse tenderness to palpation. Colostomy si te looks good. EXTREMITIES: No peripheral edema. LABORATORY STUDIES: WBC 13.8, hemoglobin 11.2, platelets 280. Sodium 138, potassium 4.9. BUN 27, c reatinine is 0.87. Glucose 158, magnesium 3.5. LFTs normal. Note that CEA level was normal at 0.77 . ASSESSMENT AND PLAN: Sigmoid obstruction secondary to a sigmoid mass, now status post sigmoidectomy with colostomy placement. Awaiting return of bowel function. Dietary advancement per the surgical t eam. We will follow along with the results of pathology. Otherwise, please let us know if we can be of any further assistance.
[2018-05-01] MEDS: DULoxetine 60 MG CAP PO SCH (09:43)
[2018-05-01] MEDS: Enoxaparin Sodium 40 MG/0.4 ML SYRINGE SC SCH (09:44)
[2018-05-01] MEDS: Famotidine/PF 20 mg/2ml Vial SLOW IVP SCH (09:44)
[2018-05-01] MEDS ORDERED: MEROPENEM 1 GM/50 ML 1 GM in Premix Bag 1 BAG IVPB SCH (11:45)
--- NOTE | 2018-05-01 13:05 | PDOC.PN ---
- Subjective Encounter Start Date: 05/01/18 Encounter Start Time: 08:45 pt had colonoscopy and then she required laparotomy and sigmoid resection and colostomy, she has NJ tube, she is NPO, doing well after surgery - Objective Resuscitation Status: Resuscitation Status FULL:Full Resuscitation MAR Reviewed: Yes Vital Signs & Weight: Vital Signs (12 hours) Temp Pulse Resp Pulse Ox 05/01/18 08:00 98.1 F 96 22 H 96 05/01/18 07:14 93 L 05/01/18 04:00 98.9 F Weight Weight 131 lb Most Recent Monitor Data Heart Rate from ECG 103 NIBP 133/49 NIBP BP-Mean 73 Respiration from ECG 23 SpO2 94 I&O: 04/30/18 05/01/18 05/02/18 06:59 06:59 06:59 Intake Total 2315 1790 Output Total 550 133 Balance 2315 1240 -133 Result Diagrams: 05/01/18 03:30 05/01/18 03:30 Additional Labs: Accuchecks 04/30/18 14:25 POC Glucose 161 H EKG Reviewed by me: Yes (nsr) Phys Exam - Physical Examination Constitutional: NAD HEENT: PERRLA, moist MMs, sclera anicteric NJ tube+ Neck: no JVD, supple central line+ Respiratory: no wheezing, no rales, no rhonchi Cardiovascular: RRR, no significant murmur, no rub Gastrointestinal: soft surgical site clean, colostomy+ Musculoskeletal: no edema, pulses present Neurological: non-focal, normal sensation, moves all 4 limbs Lymphatic: no nodes Psychiatric: normal affect, A&O x 3 Skin: no rash, normal turgor Dx/Plan (1) Large bowel obstruction Code(s): K56.609 - UNSP INTESTNL OBST, UNSP TO PARTIAL VERSUS COMPLETE OBST Status: Acute (2) S/P laparotomy Status: Acute (3) Anxiety and depression Code(s): F41.9 - ANXIETY DISORDER, UNSPECIFIED; F32.9 - MAJOR DEPRESSIVE DISORDER, SINGLE EPISODE, UNSPECIFIED Status: Chronic (4) Dyslipidemia Code(s): E78.5 - HYPERLIPIDEMIA, UNSPECIFIED Status: Chronic (5) Hypertension Code(s): I10 - ESSENTIAL (PRIMARY) HYPERTENSION Status: Chronic - Plan cont current plan of care, plan discussed w/ family * medication reviewed as below * symptomatic treatment * continue post operative care as per surgeon * await GI function to return * discussed with * diet advancement as per surgeon * follow up on pathology report * colostomy care. Review of Systems - Review of Systems Eyes: negative: Pain, Vision Change, Conjunctivae Inflammation, Eyelid Inflammation, Redness, Other ENT: negative: Ear Pain, Ear Discharge, Nose Pain, Nose Discharge, Nose Congestion, Mouth Pain, Mouth Swelling, Throat Pain, Throat Swelling, Other Respiratory: negative: Cough, Dry, Shortness of Breath, Hemoptysis, SOB with Excertion, Pleuritic Pain, Sputum, Wheezing Cardiovascular: negative: chest pain, palpitations, orthopnea, paroxysmal nocturnal dyspnea, edema, light headedness, other Gastrointestinal: negative: Nausea, Vomiting, Abdominal Pain, Diarrhea, Constipation, Melena, Hematochezia, Other Genitourinary: negative: Dysuria, Frequency, Incontinence, Hematuria, Retention , Other Musculoskeletal: negative: Neck Pain, Shoulder Pain, Arm Pain, Back Pain, Hand Pain, Leg Pain, Foot Pain, Other Skin: negative: Rash, Lesions, Octavio, Bruising, Other - Medications/Allergies Allergies/Adverse Reactions: Allergies Allergy/AdvReac Type Severity Reaction Status Date / Time codeine Allergy Intermediate Hives Verified 01/21/16 18:37 Sulfa (Sulfonamide Allergy Verified 01/21/16 16:08 Antibiotics) Medications: Current Medications Acetaminophen (Tylenol) 650 mg PO Q4H PRN PRN Reason: Headache/Fever or Mild Pain Al Hydroxide/Mg Hydroxide (Maalox) 15 ml PO Q4H PRN PRN Reason: Heartburn or Indigestion Artificial Tears (Tears Naturale) 0 drop EA EYE PRN PRN PRN Reason: Dry Eyes Atorvastatin Calcium (Lipitor) 10 mg PO [facility] Last Admin: 04/30/18 21:00 Dose: Not Given Calcium/Vitamin D (Caltrate 600 + Vit D) 1 tab PO BID-[facility] Last Admin: 05/01/18 09:05 Dose: Not Given Clonidine (Catapres) 0.1 mg PO Q4H PRN PRN Reason: Systolic BP > 180 Diphenhydramine HCl (Benadryl) 25 mg IVP Q3H PRN PRN Reason: Itching Diphenhydramine HCl (Benadryl) 25 mg PO Q3H PRN PRN Reason: Itching Diphenhydramine HCl (Benadryl) 25 mg IM Q3H PRN PRN Reason: Itching Duloxetine HCl (Cymbalta) 60 mg PO DAILY [facility] Last Admin: 05/01/18 09:43 Dose: 60 mg Enalapril Maleate (Vasotec) 10 mg PO DAILY [facility] Last Admin: 05/01/18 09:05 Dose: Not Given Enoxaparin Sodium (Lovenox) 40 mg SC 0900 [facility] Last Admin: 05/01/18 09:44 Dose: 40 mg Famotidine (Pepcid) 20 mg SLOW IVP DAILY [facility] Last Admin: 05/01/18 09:44 Dose: 20 mg Guaifenesin (Robitussin Sf) 200 mg PO Q4H PRN PRN Reason: Cough Hydralazine HCl (Apresoline) 10 mg SLOW IVP Q4H PRN PRN Reason: Systolic BP > 180 Hydromorphone HCl (Dilaudid Cadd) 0 mg IVPB INF PRN PRN Reason: Pain Sodium Chloride (Normal Saline 0.9%) 1,000 mls @ 100 mls/hr IV .Q10H [facility] Last Admin: 05/01/18 12:06 Dose: 1,000 mls Iron/Minerals/Multivitamins (Theragran M) 1 tab PO DAILY [facility] Last Admin: 05/01/18 09:06 Dose: Not Given Ketorolac Tromethamine (Toradol) 15 mg IVP Q6HR [facility] Stop: 05/02/18 18:01 Last Admin: 05/01/18 12:07 Dose: 15 mg Loratadine (Claritin) 10 mg PO DAILYPRN PRN PRN Reason: Sinus Symptoms Magnesium Hydroxide (Milk Of Magnesium) 30 ml PO DAILYPRN PRN PRN Reason: Constipation Mineral Oil/White Petrolatum (Eucerin Cream) 0 gm TOP BIDPRN PRN PRN Reason: Dry Skin Naloxone HCl (Narcan) 0.2 mg IV Q5MIN PRN PRN Reason: Opiate Reversal Ondansetron HCl (Zofran Odt) 4 mg PO Q6H PRN PRN Reason: Nausea/Vomiting Ondansetron HCl (Zofran) 4 mg IVP Q6H PRN PRN Reason: Nausea/Vomiting Promethazine HCl (Phenergan) 12.5 mg IM Q4H PRN PRN Reason: Nausea/Vomiting Senna (Senokot) 2 tab PO HSPRN PRN PRN Reason: Constipation Sodium Chloride (Flush - Normal Saline) 10 ml IVF Q12HR [facility] Last Admin: 05/01/18 09:44 Dose: 10 ml Sodium Chloride (Flush - Normal Saline) 10 ml IVF PRN PRN PRN Reason: Saline Flush Sodium Chloride ([place] Nasal [place] 0.65%) 0 ml EA NARE QIDPRN PRN PRN Reason: Nasal Congestion Trospium (Trospium) 20 mg PO DAILY [facility] Last Admin: 05/01/18 09:06 Dose: Not Given Zinc Sulfate (Zinc Sulfate) 220 mg PO DAILY [facility] Last Admin: 05/01/18 09:06 Dose: Not Given
[2018-05-01] MEDS: Atorvastatin Calcium 10 MG TAB PO SCH (20:28)
--- NOTE | 2018-05-02 02:51 | PRG ---
DATE OF SERVICE: 05/01/2018 SUBJECTIVE: The patient is postop day #1 status post exploratory laparotomy, sigmoidectomy with end colostomy and placement of feeding nasojejunal tube. The patient also had a left subclavian central venous catheter placed yesterday. She had tolerated these procedures well and had no issues overnigh t, states her pain was controlled and by report was afebrile this morning. PHYSICAL EXAMINATION: VITAL SIGNS: Temperature is 98.1, heart rate 96, blood pressure 104/65, respirations 22, oxygen satu ration 96% on room air. GENERAL: The patient is resting comfortably in bed in the critical care unit. She is awake, alert, and oriented x3. [place] coma scale is 15. HEENT: Unremarkable. Nasogastric tube appears to be functioning as does her Dobbhoff feeding tube. LUNGS: Clear to auscultation. HEART: Regular rate and rhythm. ABDOMEN: Soft, minimally tenderness and her colostomy appears to be functioning with gas, there does not appear to be any stool at this time. LABORATORY DATA: White blood cell count 13.8, hemoglobin 11.2, hematocrit 34.6, platelets 280. [place] um 138, potassium 4.9, chloride 106, CO2 of 26, BUN 27, creatinine 0.87, glucose 158, total bilirubin 0.4, AST 31, ALT 33, alkaline phosphatase 74. There are no radiographs to review this morning. ASSESSMENT AND PLAN: Status post exploratory laparotomy with sigmoidectomy and colostomy placement. Plan will be to leave tube feeds at trophic feeds. The patient may have ice chips and we will wait for bowel function return. The patient will also be transferred to the surgical floor and should beg in physical and occupational therapy. The evaluation, examination, and laboratory findings were done with Dr. Ansari during rounds this morning.
[2018-05-02] MEDS: Ketorolac Tromethamine 30 MG/ML VIAL IVP SCH ×3 (05:34→18:13)
[2018-05-02] MEDS: Sodium Chloride 0.9% 1,000 ML IV SCH (06:50)
[2018-05-02] MEDS: DULoxetine 60 MG CAP PO SCH (08:04)
[2018-05-02] MEDS: TROSPIUM 20 MG TABLET PO SCH (08:04)
[2018-05-02] MEDS: Multivitamin W/ Minerals 1 TAB PO SCH (08:04)
[2018-05-02] MEDS: Zinc Sulfate 220 MG CAP PO SCH (08:04)
[2018-05-02] MEDS: Calcium Carbonate + Vit D 1 TAB PO SCH ×2 (08:04→18:13)
[2018-05-02] MEDS: Enoxaparin Sodium 40 MG/0.4 ML SYRINGE SC SCH (08:05)
[2018-05-02] MEDS: Famotidine/PF 20 mg/2ml Vial SLOW IVP SCH (08:05)
--- NOTE | 2018-05-02 10:52 | PDOC.PN ---
- Subjective Encounter Start Date: 05/02/18 Encounter Start Time: 09:00 Patient seen and examined. No new complaints. No overnight events - Objective Resuscitation Status: Resuscitation Status FULL:Full Resuscitation MAR Reviewed: Yes Vital Signs & Weight: Vital Signs (12 hours) Temp Pulse Resp BP BP Pulse Ox 05/02/18 08:04 97.9 F 96 20 152/80 H 95 05/02/18 08:01 97.9 F 96 18 126/86 95 05/02/18 04:05 94 L 05/02/18 03:51 98.4 F 108 H 20 150/75 H 92 L 05/01/18 23:32 98.8 F 104 H 14 149/76 H 94 L Weight Admit Weight 131 lb Weight 131 lb Most Recent Monitor Data Heart Rate from ECG 113 NIBP 136/71 NIBP BP-Mean 117 Respiration from ECG 20 SpO2 94 I&O: 05/01/18 05/02/18 05/03/18 06:59 06:59 06:59 Intake Total 1790 3807 Output Total 550 705 Balance 1240 3102 Result Diagrams: 05/01/18 03:30 05/01/18 03:30 Phys Exam - Physical Examination Constitutional: NAD HEENT: PERRLA, moist MMs, sclera anicteric [place] tube+ Neck: no JVD, supple Respiratory: no wheezing, no rales, no rhonchi Cardiovascular: RRR, no significant murmur, no rub Gastrointestinal: soft, non-tender, no distention, positive bowel sounds colostomy+, surgical site clean Musculoskeletal: no edema, pulses present Neurological: non-focal, normal sensation, moves all 4 limbs Lymphatic: no nodes Psychiatric: normal affect, A&O x 3 Skin: no rash, normal turgor Dx/Plan (1) Large bowel obstruction Code(s): K56.609 - UNSP INTESTNL OBST, UNSP TO PARTIAL VERSUS COMPLETE OBST Status: Acute (2) S/P laparotomy Status: Acute Comment: s/p sigmoidectomy and colostomy (3) Anxiety and depression Code(s): F41.9 - ANXIETY DISORDER, UNSPECIFIED; F32.9 - MAJOR DEPRESSIVE DISORDER, SINGLE EPISODE, UNSPECIFIED Status: Chronic (4) Dyslipidemia Code(s): E78.5 - HYPERLIPIDEMIA, UNSPECIFIED Status: Chronic (5) Hypertension Code(s): I10 - ESSENTIAL (PRIMARY) HYPERTENSION Status: Chronic - Plan cont current plan of care, PT/OT, incentive spirometry, out of bed/ambulate * continue post operative care as per surgeon * 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 Review of Systems - Review of Systems Constitutional: negative: fever, chills, sweats, weakness, malaise, other Eyes: negative: Pain, Vision Change, Conjunctivae Inflammation, Eyelid Inflammation, Redness, Other ENT: negative: Ear Pain, Ear Discharge, Nose Pain, Nose Discharge, Nose Congestion, Mouth Pain, Mouth Swelling, Throat Pain, Throat Swelling, Other Respiratory: negative: Cough, Dry, Shortness of Breath, Hemoptysis, SOB with Excertion, Pleuritic Pain, Sputum, Wheezing Cardiovascular: negative: chest pain, palpitations, orthopnea, paroxysmal nocturnal dyspnea, edema, light headedness, other Gastrointestinal: negative: Nausea, Vomiting, Abdominal Pain, Diarrhea, Constipation, Melena, Hematochezia, Other Genitourinary: negative: Dysuria, Frequency, Incontinence, Hematuria, Retention , Other Musculoskeletal: negative: Neck Pain, Shoulder Pain, Arm Pain, Back Pain, Hand Pain, Leg Pain, Foot Pain, Other Skin: negative: Rash, Lesions, Octavio, Bruising, Other - Medications/Allergies Allergies/Adverse Reactions: Allergies Allergy/AdvReac Type Severity Reaction Status Date / Time codeine Allergy Intermediate Hives Verified 01/21/16 18:37 Sulfa (Sulfonamide Allergy Verified 01/21/16 16:08 Antibiotics) Medications: Current Medications Acetaminophen (Tylenol) 650 mg PO Q4H PRN PRN Reason: Headache/Fever or Mild Pain Al Hydroxide/Mg Hydroxide (Maalox) 15 ml PO Q4H PRN PRN Reason: Heartburn or Indigestion Artificial Tears (Tears Naturale) 0 drop EA EYE PRN PRN PRN Reason: Dry Eyes Atorvastatin Calcium (Lipitor) 10 mg PO [facility] Last Admin: 05/01/18 20:28 Dose: 10 mg Calcium/Vitamin D (Caltrate 600 + Vit D) 1 tab PO BID[facility] Last Admin: 05/02/18 08:04 Dose: 1 tab Clonidine (Catapres) 0.1 mg PO Q4H PRN PRN Reason: Systolic BP > 180 Diphenhydramine HCl (Benadryl) 25 mg IVP Q3H PRN PRN Reason: Itching Diphenhydramine HCl (Benadryl) 25 mg PO Q3H PRN PRN Reason: Itching Diphenhydramine HCl (Benadryl) 25 mg IM Q3H PRN PRN Reason: Itching Duloxetine HCl (Cymbalta) 60 mg PO DAILY [facility] Last Admin: 05/02/18 08:04 Dose: 60 mg Enalapril Maleate (Vasotec) 10 mg PO DAILY [facility] Last Admin: 05/02/18 08:04 Dose: 10 mg Enoxaparin Sodium (Lovenox) 40 mg SC 0900 [facility] Last Admin: 05/02/18 08:05 Dose: 40 mg Famotidine (Pepcid) 20 mg SLOW IVP DAILY [facility] Last Admin: 05/02/18 08:05 Dose: 20 mg Guaifenesin (Robitussin Sf) 200 mg PO Q4H PRN PRN Reason: Cough Hydralazine HCl (Apresoline) 10 mg SLOW IVP Q4H PRN PRN Reason: Systolic BP > 180 Hydromorphone HCl (Dilaudid Cadd) 0 mg IVPB INF PRN PRN Reason: Pain Last Admin: 05/01/18 20:19 Dose: 10 mg Sodium Chloride (Normal Saline 0.9%) 1,000 mls @ 100 mls/hr IV .Q10H [facility] Last Admin: 05/02/18 06:50 Dose: 1,000 mls Iron/Minerals/Multivitamins (Theragran M) 1 tab PO DAILY [facility] Last Admin: 05/02/18 08:04 Dose: 1 tab Ketorolac Tromethamine (Toradol) 15 mg IVP Q6HR [facility] Stop: 05/02/18 18:01 Last Admin: 05/02/18 05:34 Dose: 15 mg Loratadine (Claritin) 10 mg PO DAILYPRN PRN PRN Reason: Sinus Symptoms Magnesium Hydroxide (Milk Of Magnesium) 30 ml PO DAILYPRN PRN PRN Reason: Constipation Mineral Oil/White Petrolatum (Eucerin Cream) 0 gm TOP BIDPRN PRN PRN Reason: Dry Skin Naloxone HCl (Narcan) 0.2 mg IV Q5MIN PRN PRN Reason: Opiate Reversal Ondansetron HCl (Zofran Odt) 4 mg PO Q6H PRN PRN Reason: Nausea/Vomiting Ondansetron HCl (Zofran) 4 mg IVP Q6H PRN PRN Reason: Nausea/Vomiting Promethazine HCl (Phenergan) 12.5 mg IM Q4H PRN PRN Reason: Nausea/Vomiting Senna (Senokot) 2 tab PO HSPRN PRN PRN Reason: Constipation Sodium Chloride (Flush - Normal Saline) 10 ml IVF Q12HR [facility] Last Admin: 05/02/18 08:14 Dose: 10 ml Sodium Chloride (Flush - Normal Saline) 10 ml IVF PRN PRN PRN Reason: Saline Flush Sodium Chloride ([place] Nasal [place] 0.65%) 0 ml EA NARE QIDPRN PRN PRN Reason: Nasal Congestion Trospium (Trospium) 20 mg PO DAILY [facility] Last Admin: 05/02/18 08:04 Dose: 20 mg Zinc Sulfate (Zinc Sulfate) 220 mg PO DAILY [facility] Last Admin: 05/02/18 08:04 Dose: 220 mg
[2018-05-02] MEDS ORDERED: Sodium Chloride 0.9% 1,000 ML IV SCH (16:45)
--- NOTE | 2018-05-02 18:18 | PRG ---
DATE OF SERVICE: 05/02/2018 SUBJECTIVE: Ms. Lerner is an 78-year-old woman who is postoperative day #2, status post Armani's pr ocedure. The patient reports adequate pain control today. Urinary output has been adequate. OBJECTIVE: VITAL SIGNS: This morning includes blood pressure 126/86, pulse is 96, respiratory rate is 18, tempe rature is 97.9 degrees Fahrenheit, oxygen saturation is 95% on room air. HEENT: Reveals normocephalic and atraumatic. Pupils equal, round, reactive to light and accommodati on. She has no jugular venous distention noted. HEART: Reveals regular rate and rhythm, no murmurs or gallops auscultated. CHEST: Lungs clear to auscultation bilaterally. Her breathing is regular and unlabored. ABDOMEN: Soft and nondistended. Bowel sounds in all four quadrants appear normoactive. Incision is intact, clean, and dry. Colostomy is viable, producing gas, but no stool. IMPRESSION: Postoperative day #2 status post Armani's procedure, hemodynamically stable. PLAN: 1. Increase activity as tolerated. 2. We will start clear liquid diet. 3. Continue with trophic enteral nutritional supplementation. Above findings and plan discussed with the patient indicates understanding of information given. Ned fischer answered her questions.
[2018-05-02] MEDS ORDERED: Ketorolac Tromethamine 30 MG/ML VIAL IVP PRN (20:17)
[2018-05-02] MEDS: Furosemide 20 MG/2 ML VIAL SLOW IVP SCH (20:31)
[2018-05-02] MEDS: Atorvastatin Calcium 10 MG TAB PO SCH (20:31)
[2018-05-02] MEDS: Acetaminophen 325 MG TAB PO PRN (20:34)
[2018-05-03 04:31] LABS: Anion Gap 9 mmol/L (10-20); BUN (Urea Nitrogen) 24 mg/dL (9.8-20.1); Calc. Creatinine Clearance 62 mL/min (70-130); Calcium 8.7 mg/dL (7.8-10.44); Carbon Dioxide 25 mmol/L (23-31); Chloride 107 mmol/L (98-107); Estimated GFR-MDRD 83; Glucose 94 mg/dL (83-110); Magnesium 2.4 mg/dL (1.6-2.6); Potassium 4.2 mmol/L (3.5-5.1); Sodium 137 mmol/L (136-145)
[2018-05-03] MEDS: Acetaminophen 325 MG TAB PO PRN (06:16)
[2018-05-03] MEDS ORDERED: Ibuprofen 600 MG TAB PO PRN (08:36)
[2018-05-03] MEDS: DULoxetine 60 MG CAP PO SCH (08:51)
[2018-05-03] MEDS: Famotidine/PF 20 mg/2ml Vial SLOW IVP SCH (08:51)
[2018-05-03] MEDS: TROSPIUM 20 MG TABLET PO SCH (08:51)
[2018-05-03] MEDS: Enoxaparin Sodium 40 MG/0.4 ML SYRINGE SC SCH (08:51)
[2018-05-03] MEDS: Multivitamin W/ Minerals 1 TAB PO SCH (08:51)
[2018-05-03] MEDS: Furosemide 20 MG/2 ML VIAL SLOW IVP SCH ×2 (08:51→20:38)
[2018-05-03] MEDS: Calcium Carbonate + Vit D 1 TAB PO SCH ×2 (08:51→16:56)
[2018-05-03] MEDS: Zinc Sulfate 220 MG CAP PO SCH (08:51)
[2018-05-03] MEDS: traMADol HCl 50 MG TAB PO SCH ×3 (08:52→20:39)
[2018-05-03] MEDS: Acetaminophen 500 MG TAB PO SCH ×3 (08:52→20:38)
[2018-05-03] MEDS ORDERED: Metoprolol Tartrate 5 MG/5 ML VIAL IVP SCH (09:45)
[2018-05-03] MEDS ORDERED: Furosemide 40 MG/4 ML VIAL SLOW IVP SCH (10:00)
[2018-05-03] MEDS ORDERED: Sodium Phosphate 30 MMOL in Sodium Chloride 0.9% 250 ML 250 ML IVPB SCH (10:00)
[2018-05-03] MEDS ORDERED: Magnesium 2 GM/NS 0.9% 100 ML 2 GM in Premix Bag 1 BAG IVPB SCH (10:00)
[2018-05-03] MEDS ORDERED: Amiodarone HCl 150 MG, Admixture Fee 1 EACH in Dextrose 5% in Water 100 ML IVPB SCH (10:15)
[2018-05-03 10:50] LABS: CKMB 4.7 ng/mL (0-6.6); Troponin I Less than 0.010 ng/mL (< 0.028)
--- NOTE | 2018-05-03 11:03 | PDOC.PN ---
- Subjective Encounter Start Date: 05/03/18 Encounter Start Time: 10:30 pt seen bedside x 2 first time she was not having any complaints, doing well, did not have any chest pain when surgeon show at that time she was short of breath and tachycardia, ekg showed afib with RVR then again i show bedside and ekg reviewed and examined pt, still pt does not have chest pain, denies palpitaion but c/o dyspnea - Objective Resuscitation Status: Resuscitation Status FULL:Full Resuscitation MAR Reviewed: Yes Vital Signs & Weight: Vital Signs (12 hours) Temp Pulse Resp BP BP Pulse Ox 05/03/18 09:37 98.7 F 78 24 H 156/87 H 96 05/03/18 08:51 165/86 H 05/03/18 07:05 98 F 99 18 165/86 H 96 05/03/18 04:00 98.4 F 100 18 160/83 H 95 05/03/18 00:00 98 F 98 16 147/83 H 97 Weight Admit Weight 131 lb Weight 131 lb Most Recent Monitor Data Heart Rate from ECG 113 NIBP 136/71 NIBP BP-Mean 117 Respiration from ECG 20 SpO2 94 I&O: 05/02/18 05/03/18 05/04/18 06:59 06:59 06:59 Intake Total 3807 3230 Output Total 705 2335 Balance 3102 895 Result Diagrams: 05/01/18 03:30 05/03/18 03:30 Radiology Reviewed by me: Yes (chest xray -congestion) EKG Reviewed by me: Yes (afib with RVR) Phys Exam - Physical Examination Constitutional: NAD HEENT: PERRLA, moist MMs, sclera anicteric [place] tube+ Neck: no JVD, supple reduced air entry at base, has basal rales Cardiovascular: no significant murmur, irregular Gastrointestinal: soft, non-tender, no distention, positive bowel sounds surgical site clean, colostomy+ Musculoskeletal: no edema, pulses present scd+ Neurological: non-focal, normal sensation, moves all 4 limbs Lymphatic: no nodes Psychiatric: normal affect, A&O x 3 Skin: no rash, normal turgor Dx/Plan (1) Acute CHF Code(s): I50.9 - HEART FAILURE, UNSPECIFIED Status: Acute (2) Atrial fibrillation with RVR Code(s): I48.91 - UNSPECIFIED ATRIAL FIBRILLATION Status: Acute (3) Large bowel obstruction Code(s): K56.609 - UNSP INTESTNL OBST, UNSP TO PARTIAL VERSUS COMPLETE OBST Status: Acute Comment: resolved after surgery, pathology report pending (4) S/P laparotomy Status: Acute Comment: s/p sigmoidectomy and colostomy (5) Anxiety and depression Code(s): F41.9 - ANXIETY DISORDER, UNSPECIFIED; F32.9 - MAJOR DEPRESSIVE DISORDER, SINGLE EPISODE, UNSPECIFIED Status: Chronic (6) Dyslipidemia Code(s): E78.5 - HYPERLIPIDEMIA, UNSPECIFIED Status: Chronic (7) Hypertension Code(s): I10 - ESSENTIAL (PRIMARY) HYPERTENSION Status: Chronic (8) Hypophosphatemia Code(s): E83.39 - OTHER DISORDERS OF PHOSPHORUS METABOLISM Status: Acute - Plan cont current plan of care, plan discussed w/ family, respiratory therapy, incentive spirometry * lasix 40 mg IV given * amiodraon drip started * transfer to tele * cardiology consulted * reduce IVF to KVO * NJ tube feeding * tolerating liquid diet * discussed with family * will do serial cardiac enzyme * will get Echo * will monitor on tele. Review of Systems - Review of Systems Constitutional: negative: fever, chills, sweats, weakness, malaise, other Eyes: negative: Pain, Vision Change, Conjunctivae Inflammation, Eyelid Inflammation, Redness, Other ENT: negative: Ear Pain, Ear Discharge, Nose Pain, Nose Discharge, Nose Congestion, Mouth Pain, Mouth Swelling, Throat Pain, Throat Swelling, Other Respiratory: Shortness of Breath, SOB with Excertion. negative: Cough, Dry, Hemoptysis, Pleuritic Pain, Sputum, Wheezing Cardiovascular: negative: chest pain, palpitations, orthopnea, paroxysmal nocturnal dyspnea, edema, light headedness, other Gastrointestinal: negative: Nausea, Vomiting, Abdominal Pain, Diarrhea, Constipation, Melena, Hematochezia, Other Genitourinary: negative: Dysuria, Frequency, Incontinence, Hematuria, Retention , Other Musculoskeletal: negative: Neck Pain, Shoulder Pain, Arm Pain, Back Pain, Hand Pain, Leg Pain, Foot Pain, Other Skin: negative: Rash, Lesions, Octavio, Bruising, Other - Medications/Allergies Allergies/Adverse Reactions: Allergies Allergy/AdvReac Type Severity Reaction Status Date / Time codeine Allergy Intermediate Hives Verified 01/21/16 18:37 Sulfa (Sulfonamide Allergy Verified 01/21/16 16:08 Antibiotics) Medications: Current Medications Acetaminophen (Tylenol) 1,000 mg PO Q6H [facility] Last Admin: 05/03/18 08:52 Dose: 1,000 mg Al Hydroxide/Mg Hydroxide (Maalox) 15 ml PO Q4H PRN PRN Reason: Heartburn or Indigestion Albuterol/Ipratropium (Duoneb) 3 ml NEB [id number] PRN PRN Reason: SOB &/or Wheezing Artificial Tears (Tears Naturale) 0 drop EA EYE PRN PRN PRN Reason: Dry Eyes Atorvastatin Calcium (Lipitor) 10 mg PO HS [facility] Last Admin: 05/02/18 20:31 Dose: 10 mg Calcium/Vitamin D (Caltrate 600 + Vit D) 1 tab PO BID-[facility] Last Admin: 05/03/18 08:51 Dose: 1 tab Clonidine (Catapres) 0.1 mg PO Q4H PRN PRN Reason: Systolic BP > 180 Diphenhydramine HCl (Benadryl) 25 mg IVP Q3H PRN PRN Reason: Itching Diphenhydramine HCl (Benadryl) 25 mg PO Q3H PRN PRN Reason: Itching Diphenhydramine HCl (Benadryl) 25 mg IM Q3H PRN PRN Reason: Itching Duloxetine HCl (Cymbalta) 60 mg PO DAILY [facility] Last Admin: 05/03/18 08:51 Dose: 60 mg Enalapril Maleate (Vasotec) 10 mg PO DAILY [facility] Last Admin: 05/03/18 08:51 Dose: 10 mg Enoxaparin Sodium (Lovenox) 40 mg SC 0900 [facility] Last Admin: 05/03/18 08:51 Dose: 40 mg Famotidine (Pepcid) 20 mg SLOW IVP DAILY [facility] Last Admin: 05/03/18 08:51 Dose: 20 mg Furosemide (Lasix) 40 mg SLOW IVP NOW [facility] Stop: 05/03/18 12:00 Last Admin: 05/03/18 10:07 Dose: 40 mg Guaifenesin (Robitussin Sf) 200 mg PO Q4H PRN PRN Reason: Cough Hydralazine HCl (Apresoline) 10 mg SLOW IVP Q4H PRN PRN Reason: Systolic BP > 180 Magnesium Sulfate 2 gm/ Device 100 mls @ 100 mls/hr IVPB NOW [facility] Stop: 05/03/18 12:00 Last Admin: 05/03/18 10:09 Dose: 100 mls Sodium Phosphate 30 mmol/ (Sodium Chloride) 260 mls @ 43.333 mls/hr IVPB NOW [facility] Stop: 05/03/18 12:00 Last Admin: 05/03/18 10:20 Dose: 260 mls Amiodarone HCl 150 mg/Miscellaneous Medication 1 each/ Dextrose/Water 103 mls @ 618 mls/hr IVPB NOW [facility]; Protocol Stop: 05/03/18 12:00 Amiodarone HCl 450 mg/Miscellaneous Medication 1 each/ Dextrose/Water 259 mls @ 0 mls/hr IVPB INF [facility]; Protocol Ibuprofen (Motrin) 600 mg PO Q8H PRN PRN Reason: Pain Iron/Minerals/Multivitamins (Theragran M) 1 tab PO DAILY [facility] Last Admin: 05/03/18 08:51 Dose: 1 tab Loratadine (Claritin) 10 mg PO DAILYPRN PRN PRN Reason: Sinus Symptoms Magnesium Hydroxide (Milk Of Magnesium) 30 ml PO DAILYPRN PRN PRN Reason: Constipation Mineral Oil/White Petrolatum (Eucerin Cream) 0 gm TOP BIDPRN PRN PRN Reason: Dry Skin Naloxone HCl (Narcan) 0.2 mg IV Q5MIN PRN PRN Reason: Opiate Reversal Ondansetron HCl (Zofran Odt) 4 mg PO Q6H PRN PRN Reason: Nausea/Vomiting Ondansetron HCl (Zofran) 4 mg IVP Q6H PRN PRN Reason: Nausea/Vomiting Promethazine HCl (Phenergan) 12.5 mg IM Q4H PRN PRN Reason: Nausea/Vomiting Senna (Senokot) 2 tab PO HSPRN PRN PRN Reason: Constipation Sodium Chloride (Flush - Normal Saline) 10 ml IVF Q12HR [facility] Last Admin: 05/03/18 08:53 Dose: 10 ml Sodium Chloride (Flush - Normal Saline) 10 ml IVF PRN PRN PRN Reason: Saline Flush Sodium Chloride ([place] Nasal [place] 0.65%) 0 ml EA NARE QIDPRN PRN PRN Reason: Nasal Congestion Tramadol HCl (Ultram) 50 mg PO Q6H [facility] Last Admin: 05/03/18 08:52 Dose: 50 mg Tramadol HCl (Ultram) 50 mg PO Q6H PRN PRN Reason: Breakthrough Pain Trospium (Trospium) 20 mg PO DAILY [facility] Last Admin: 05/03/18 08:51 Dose: 20 mg Zinc Sulfate (Zinc Sulfate) 220 mg PO DAILY [facility] Last Admin: 05/03/18 08:51 Dose: 220 mg
--- NOTE | 2018-05-03 11:06 | RAD ---
PORTABLE CHEST: INDICATION: New-onset atrial fibrillation. COMPARISON: 04/30/18. FINDINGS: There are small to moderate bilateral pleural effusions obscuring the CP angles. The central line bernardo s tip overlying the right atrium. The mid and upper lungs remain clear. Heart is mildly prominent. No significant vascular congestion. POS: [facility]
[2018-05-03] MEDS: Amiodarone HCl 450 MG, Admixture Fee 1 EACH in Dextrose 5% in Water 250 ML IVPB SCH ×2 (11:57→21:52)
--- NOTE | 2018-05-03 12:20 | EKG ---
Test Reason : Blood Pressure : / mmHG Vent. Rate : 157 BPM Atrial Rate : 576 BPM P-R Int : 000 ms QRS Dur : 088 ms QT Int : 284 ms P-R-T Axes : 000 -13 157 degrees QTc Int : 459 ms Atrial fibrillation with rapid ventricular response Inferior infarct , age undetermined Marked ST abnormality, possible lateral subendocardial injury Abnormal ECG When compared with ECG of 30-APR-2018 10:40, (Unconfirmed) Atrial fibrillation has replaced Sinus rhythm Vent. rate has increased BY [address] now depressed in Lateral leads Nonspecific T wave abnormality now evident in Lateral leads Confirmed by RAEGAN MANZO ([id number]) on 05/03/2018 12:20:45 PM Referred By: VERENICE Confirmed By:RAEGAN MANZO
[2018-05-03 12:26] LABS: ALT (SGPT) 33 U/L (8-55); AST (SGOT) 37 U/L (5-34); Albumin 3.3 g/dL (3.4-4.8); Alkaline Phosphatase 77 U/L (40-150); Bilirubin, Direct 0.2 mg/dL (0.1-0.3); Bilirubin, Total 0.5 mg/dL (0.2-1.2); Protein, Total 5.4 g/dL (6.0-8.3)
[2018-05-03 12:40] LABS: Troponin I Less than 0.010 ng/mL (< 0.028)
--- NOTE | 2018-05-03 15:52 | PRG ---
DATE OF SERVICE: 05/03/2018 SUBJECTIVE: Mrs. Lerner had a brief run of atrial fibrillation with RVR earlier today. She now appea rs to be back in sinus rhythm, but is undergoing some cardiac evaluation for this. She is having a n ormal appearing stool in her ostomy bag. Abdominal discomfort is minimal. Pathology from the sigmoi d colon came back benign. OBJECTIVE: VITAL SIGNS: Temperature 97.9, pulse was up to 149, blood pressure 114/58, 100% oxygen saturation on 2 liters nasal cannula. GENERAL: No acute distress. HEART: Regular rate and rhythm. LUNGS: Clear to auscultation bilaterally. ABDOMEN: Bowel sounds present, soft, minimal tenderness to palpation throughout. There is brown sto ol in the ostomy bag. EXTREMITIES: No peripheral edema. LABORATORY STUDIES: Total bilirubin 0.5, alkaline phosphatase 77, AST 37, ALT 33. TSH 1.17. Tropon ins negative. BNP 256.8. Sodium 137, potassium 4.2, BUN 24, creatinine 0.68. ASSESSMENT AND PLAN: 1. Sigmoid obstruction secondary to acute diverticulitis, now status post sigmoidectomy with colosto my. 2. Atrial fibrillation. I was pleased to share with her the news that pathology came back all benig n on her sigmoid colon resection. It appears this was as severe presentation of acute diverticulitis rather than any malignant process. GI will sign off, but please call back anytime with questions or concerns.
[2018-05-03 16:28] LABS: CKMB 3.5 ng/mL (0-6.6); Troponin I 0.017 ng/mL (< 0.028)
--- NOTE | 2018-05-03 16:53 | PRG ---
DATE OF SERVICE: 05/03/2018 SUBJECTIVE: Ms. Lerner is an 78-year-old woman who is postoperative day #3 status post Armani's pro cedure for acute large bowel obstruction. Patient is awake and alert today. She reports adequate pa in control. She is tolerating clear liquid diet. Ostomy is functioning with a small amount of liqui d stool and gas. Patient developed sudden onset acute atrial fibrillation with rapid ventricular res ponse requiring transfer to telemetry and initiation of amiodarone by continuous infusion. Patient d enies any chest pain, dyspnea or syncope. OBJECTIVE: VITAL SIGNS: At the time included blood pressure 114/58, pulse 149 and irregular, respiratory rate 1 6, temperature 97.9 degrees Fahrenheit, oxygen saturation is 98% on 2 liters by nasal cannula oxygen. HEENT: Reveals normocephalic and atraumatic. Pupils are equal, round, and reactive to light and acc ommodation. The patient has no jugular venous distention noted. HEART: Reveals irregular rate and irregular rhythm. LUNGS: Reveals scattered rhonchi. Breathing is regular and unlabored. ABDOMEN: Soft and mildly distended with some incisional tenderness to palpation. She clearly has no gross rebound tenderness present. Colostomy is viable and functional. LABORATORY DATA: Today includes metabolic profile; sodium is 137, potassium is 4.2, chloride is 107, bicarbonate is 25, BUN 24, creatinine 0.68, glucose is 94, magnesium 2.4. Phosphorus is 2.0, tropon in I is less than 0.01. Serum BNP is 256.8. IMAGING DATA: Chest x-ray reveals small to moderate bilateral pleural effusions. There is mild card iomegaly. IMPRESSION: 1. Postop day #3, status post Armani's procedure. 2. Acute atrial fibrillation with rapid ventricular response secondary to acute congestive heart yareli lure. PLAN: 1. Patient will remain in the telemetry with amiodarone for rate control and possibly conversion to sinus rhythm. 2. We will initiate gentle diuresis and monitor the patient's urinary output and electrolytes, which will be corrected as indicated. The above findings and plan discussed with the patient who indicates understanding of the information given. I have answered their questions.
[2018-05-03] MEDS: Atorvastatin Calcium 10 MG TAB PO SCH (20:38)
--- NOTE | 2018-05-04 00:08 | CON ---
DATE OF CONSULTATION: 05/03/2018 HISTORY OF PRESENT ILLNESS: Gena Lerner is an 78-year-old white female who admitted with abdominal pain and felt to have partial large bowel obstruction. She was on the surgical floor and began to complain of episodes of shortness of breath. She was found to be tachycardic and EKG showed atrial fibrillation with fast ventricular response. She then was moved to intermediate unit and placed on telemetry and was started on amiodarone IV and apparently an hour afterwards converted to sinus rhythm. Five days ago, she has undergone exploratory laparotomy with sigmoidectomy with end colostomy. PAST MEDICAL HISTORY: Hypertension, hyperlipidemia, osteoporosis. OPERATIONS: Hysterectomy, colonoscopy with polypectomy and during this admission, sigmoidectomy and end colostomy for diverticular disease. HOME MEDICATIONS: Home include atorvastatin 10 at bedtime, calcium carbonate plus vitamin D, enalapril 10 mg daily, Deep Water p.r.n., Detrol-LA 4 mg daily, zinc sulfate 1 capsule daily, Deep Water p.r.n. ALLERGIES: CODEINE AND SULFA. SOCIAL HISTORY: She does not smoke or drink. FAMILY HISTORY: Negative for coronary artery disease. REVIEW OF SYSTEMS: Twelve-point review of systems otherwise unremarkable. PHYSICAL EXAMINATION: VITAL SIGNS: Blood pressure 120/66, pulse of 88. HEENT: PERRL. NECK: Supple. CHEST: Clear. CARDIAC: S1 and S2 are normal without any S3, S4, or murmurs. ABDOMEN: Normal bowel sounds without tenderness. EXTREMITIES: Revealed no clubbing, cyanosis, or edema. NEUROLOGIC: Grossly intact. LABORATORY AND X-RAY FINDINGS: EKG revealed atrial fibrillation with rapid ventricular response of 157 per minute, nonspecific ST segment changes. Hemoglobin 11.2, hematocrit 34.6, white count 13,800, platelets 280,000. Sodium 137, potassium 4.2, chloride 107, carbon dioxide 25, BUN 24, creatinine 0.68. Troponin I is negative x2. BNP 256.8. TSH is normal. IMPRESSION: 1. Episode of atrial fibrillation, converting with intravenous amiodarone. 2. Status post sigmoid colectomy with end colostomy for diverticular disease. 3. Hypertension. 4. Hyperlipidemia. 5. Anxiety and depression. PLAN: Echocardiogram will be performed to assess left ventricular function. Consideration may be given to a beta-keila for hypertension treatment. [facility]
[2018-05-04] MEDS: Acetaminophen 500 MG TAB PO SCH ×4 (04:48→20:19)
[2018-05-04] MEDS: traMADol HCl 50 MG TAB PO SCH ×4 (04:48→20:19)
[2018-05-04 05:15] LABS: Anion Gap 11 mmol/L (10-20); BUN (Urea Nitrogen) 22 mg/dL (9.8-20.1); Calc. Creatinine Clearance 57 mL/min (70-130); Calcium 9.1 mg/dL (7.8-10.44); Carbon Dioxide 28 mmol/L (23-31); Chloride 99 mmol/L (98-107); Estimated GFR-MDRD 76; Glucose 103 mg/dL (83-110); Magnesium 1.8 mg/dL (1.6-2.6); Phosphorus 3.2 mg/dL (2.3-4.7); Potassium 3.8 mmol/L (3.5-5.1); Sodium 134 mmol/L (136-145)
[2018-05-04 05:23] LABS: Band 3 % (5-11); Eosinophils 4 % (0-10); Hemoglobin 9.3 g/dL (12.0-16.0); Lymphocytes 31 % (21-51); MDiff Complete? YES; Mean Corpuscular HGB CONC 34.2 g/dL (32.0-36.0); Mean Corpuscular Hemoglobin 29.8 pg (27.0-31.0); Mean Corpuscular Volume 87.1 fL (78.0-98.0); Mean Platelet Volume 7.8 fL (7.4-10.4); Monocytes 9 % (0-10); Neutrophil 51 % (42-75); Platelet Count 247 thou/uL (130-400); RBC Distribution Width 11.7 % (11.5-14.5); Reactive Lymphocytes 2 % (0-10); Red Blood Cell (RBC) Count 3.14 mill/uL (4.20-5.40); White Blood Cell (WBC) Count 13.8 thou/uL (4.8-10.8)
[2018-05-04] MEDS: Calcium Carbonate + Vit D 1 TAB PO SCH ×2 (09:03→16:46)
[2018-05-04] MEDS: DULoxetine 60 MG CAP PO SCH (09:03)
[2018-05-04] MEDS: Multivitamin W/ Minerals 1 TAB PO SCH (09:04)
[2018-05-04] MEDS: TROSPIUM 20 MG TABLET PO SCH (09:05)
[2018-05-04] MEDS: Enoxaparin Sodium 40 MG/0.4 ML SYRINGE SC SCH (09:06)
[2018-05-04] MEDS: Zinc Sulfate 220 MG CAP PO SCH (09:06)
[2018-05-04] MEDS: Famotidine/PF 20 mg/2ml Vial SLOW IVP SCH (09:07)
[2018-05-04] MEDS: Furosemide 20 MG/2 ML VIAL SLOW IVP SCH ×2 (09:08)
--- NOTE | 2018-05-04 09:40 | PDOC.PN ---
- Subjective Encounter Start Date: 05/04/18 Encounter Start Time: 07:10 [place] tube removed, now she is on regular diet, tolerating well, pain controlled, she converted to NSR, she is hypertensive - Objective Resuscitation Status: Resuscitation Status FULL:Full Resuscitation MAR Reviewed: Yes Vital Signs & Weight: Vital Signs (12 hours) Temp Pulse Resp BP BP Pulse Ox 05/04/18 09:06 165/86 H 05/04/18 08:00 98.6 F 86 18 93 L 05/04/18 07:30 98.6 F 86 18 168/76 H 93 L 05/04/18 04:22 98.5 F 83 18 166/80 H 92 L 05/04/18 00:04 97.8 F 76 18 142/66 H 92 L Weight Admit Weight 131 lb Weight 131 lb Most Recent Monitor Data Heart Rate from ECG 113 NIBP 136/71 NIBP BP-Mean 117 Respiration from ECG 20 SpO2 94 I&O: 05/03/18 05/04/18 05/05/18 06:59 06:59 06:59 Intake Total 3230 1434 Output Total 2335 2155 Balance 895 -721 Result Diagrams: 05/04/18 04:35 05/04/18 04:35 Radiology Reviewed by me: Yes (echo pending result) EKG Reviewed by me: Yes (nsr) Phys Exam - Physical Examination Constitutional: NAD HEENT: PERRLA, moist MMs, sclera anicteric Neck: no JVD, supple Respiratory: no wheezing, no rales, no rhonchi Cardiovascular: RRR, no significant murmur, no rub Gastrointestinal: soft, non-tender, no distention, positive bowel sounds surgical site clean, colostomy + Musculoskeletal: no edema, pulses present Neurological: non-focal, normal sensation, moves all 4 limbs Lymphatic: no nodes Psychiatric: normal affect, A&O x 3 Skin: no rash, normal turgor Dx/Plan (1) Acute CHF Code(s): I50.9 - HEART FAILURE, UNSPECIFIED Status: Acute Qualifiers: Heart failure type: diastolic Qualified Code(s): I50.31 - Acute diastolic ( congestive) heart failure (2) Atrial fibrillation with RVR Code(s): I48.91 - UNSPECIFIED ATRIAL FIBRILLATION Status: Resolved Comment: convereted to NSR (3) Large bowel obstruction Code(s): K56.609 - UNSP INTESTNL OBST, UNSP TO PARTIAL VERSUS COMPLETE OBST Status: Acute Comment: resolved after surgery, pathology report pending (4) S/P laparotomy Status: Acute Comment: s/p sigmoidectomy and colostomy (5) Anxiety and depression Code(s): F41.9 - ANXIETY DISORDER, UNSPECIFIED; F32.9 - MAJOR DEPRESSIVE DISORDER, SINGLE EPISODE, UNSPECIFIED Status: Chronic (6) Dyslipidemia Code(s): E78.5 - HYPERLIPIDEMIA, UNSPECIFIED Status: Chronic (7) Hypertension Code(s): I10 - ESSENTIAL (PRIMARY) HYPERTENSION Status: Chronic (8) Hypophosphatemia Code(s): E83.39 - OTHER DISORDERS OF PHOSPHORUS METABOLISM Status: Acute (9) Acute diverticulitis Code(s): K57.92 - DVTRCLI OF INTEST, PART UNSP, W/O PERF OR ABSCESS W/O BLEED Status: Acute Comment: with rupture and paracolic inflamation on admission, taken care of by surgery - Plan cont current plan of care, plan discussed w/ family, PT/OT * pt is converted to nsr, amiodaron discontinued, cardiology started Toprol XL * will increase enlapril 10 mg po bid for hypertension * now on regular diet * overall doing well * echo result pending * expecting discharge soon * medication reviewed as below * symptomatic treatment * discussed with bedside. Review of Systems - Review of Systems Eyes: negative: Pain, Vision Change, Conjunctivae Inflammation, Eyelid Inflammation, Redness, Other ENT: negative: Ear Pain, Ear Discharge, Nose Pain, Nose Discharge, Nose Congestion, Mouth Pain, Mouth Swelling, Throat Pain, Throat Swelling, Other Respiratory: negative: Cough, Dry, Shortness of Breath, Hemoptysis, SOB with Excertion, Pleuritic Pain, Sputum, Wheezing Cardiovascular: negative: chest pain, palpitations, orthopnea, paroxysmal nocturnal dyspnea, edema, light headedness, other Gastrointestinal: negative: Nausea, Vomiting, Abdominal Pain, Diarrhea, Constipation, Melena, Hematochezia, Other Genitourinary: negative: Dysuria, Frequency, Incontinence, Hematuria, Retention , Other Musculoskeletal: negative: Neck Pain, Shoulder Pain, Arm Pain, Back Pain, Hand Pain, Leg Pain, Foot Pain, Other Skin: negative: Rash, Lesions, Octavio, Bruising, Other - Medications/Allergies Allergies/Adverse Reactions: Allergies Allergy/AdvReac Type Severity Reaction Status Date / Time codeine Allergy Intermediate Hives Verified 01/21/16 18:37 Sulfa (Sulfonamide Allergy Verified 01/21/16 16:08 Antibiotics) Medications: Current Medications Acetaminophen (Tylenol) 1,000 mg PO Q6H [facility] Last Admin: 05/04/18 09:02 Dose: 1,000 mg Al Hydroxide/Mg Hydroxide (Maalox) 15 ml PO Q4H PRN PRN Reason: Heartburn or Indigestion Albuterol/Ipratropium (Duoneb) 3 ml NEB [id number] PRN PRN Reason: SOB &/or Wheezing Artificial Tears (Tears Naturale) 0 drop EA EYE PRN PRN PRN Reason: Dry Eyes Atorvastatin Calcium (Lipitor) 10 mg PO HS [facility] Last Admin: 05/03/18 20:38 Dose: 10 mg Calcium/Vitamin D (Caltrate 600 + Vit D) 1 tab PO BID-[facility] Last Admin: 05/04/18 09:03 Dose: 1 tab Clonidine (Catapres) 0.1 mg PO Q4H PRN PRN Reason: Systolic BP > 180 Diphenhydramine HCl (Benadryl) 25 mg IVP Q3H PRN PRN Reason: Itching Diphenhydramine HCl (Benadryl) 25 mg PO Q3H PRN PRN Reason: Itching Diphenhydramine HCl (Benadryl) 25 mg IM Q3H PRN PRN Reason: Itching Duloxetine HCl (Cymbalta) 60 mg PO DAILY [facility] Last Admin: 05/04/18 09:03 Dose: 60 mg Enalapril Maleate (Vasotec) 10 mg PO BID [facility] Enoxaparin Sodium (Lovenox) 40 mg SC 0900 [facility] Last Admin: 05/04/18 09:06 Dose: 40 mg Famotidine (Pepcid) 20 mg PO BID [facility] Furosemide (Lasix) 20 mg SLOW IVP DAILY [facility] Last Admin: 05/04/18 09:08 Dose: Not Given Guaifenesin (Robitussin Sf) 200 mg PO Q4H PRN PRN Reason: Cough Hydralazine HCl (Apresoline) 10 mg SLOW IVP Q4H PRN PRN Reason: Systolic BP > 180 Ibuprofen (Motrin) 600 mg PO Q8H PRN PRN Reason: Pain Iron/Minerals/Multivitamins (Theragran M) 1 tab PO DAILY [facility] Last Admin: 05/04/18 09:04 Dose: 1 tab Loratadine (Claritin) 10 mg PO DAILYPRN PRN PRN Reason: Sinus Symptoms Magnesium Hydroxide (Milk Of Magnesium) 30 ml PO DAILYPRN PRN PRN Reason: Constipation Metoprolol Succinate (Toprol Xl) 50 mg PO DAILY [facility] Last Admin: 05/04/18 09:03 Dose: 50 mg Mineral Oil/White Petrolatum (Eucerin Cream) 0 gm TOP BIDPRN PRN PRN Reason: Dry Skin Naloxone HCl (Narcan) 0.2 mg IV Q5MIN PRN PRN Reason: Opiate Reversal Ondansetron HCl (Zofran Odt) 4 mg PO Q6H PRN PRN Reason: Nausea/Vomiting Ondansetron HCl (Zofran) 4 mg IVP Q6H PRN PRN Reason: Nausea/Vomiting Promethazine HCl (Phenergan) 12.5 mg IM Q4H PRN PRN Reason: Nausea/Vomiting Senna (Senokot) 2 tab PO HSPRN PRN PRN Reason: Constipation Sodium Chloride (Flush - Normal Saline) 10 ml IVF Q12HR [facility] Last Admin: 05/04/18 09:07 Dose: 10 ml Sodium Chloride (Flush - Normal Saline) 10 ml IVF PRN PRN PRN Reason: Saline Flush Sodium Chloride ([place] Nasal [place] 0.65%) 0 ml EA NARE QIDPRN PRN PRN Reason: Nasal Congestion Tramadol HCl (Ultram) 50 mg PO Q6H [facility] Last Admin: 05/04/18 09:03 Dose: 50 mg Tramadol HCl (Ultram) 50 mg PO Q6H PRN PRN Reason: Breakthrough Pain Trospium (Trospium) 20 mg PO DAILY [facility] Last Admin: 05/04/18 09:05 Dose: 20 mg Zinc Sulfate (Zinc Sulfate) 220 mg PO DAILY [facility] Last Admin: 05/04/18 09:06 Dose: 220 mg
[2018-05-04] MEDS: Famotidine 20 MG TAB PO SCH (20:19)
[2018-05-04] MEDS: Atorvastatin Calcium 10 MG TAB PO SCH (20:19)
[2018-05-05] MEDS: traMADol HCl 50 MG TAB PO SCH ×4 (03:54→21:26)
[2018-05-05] MEDS: Acetaminophen 500 MG TAB PO SCH ×4 (03:54→21:25)
[2018-05-05] MEDS: Ondansetron HCl/PF 4 MG/2 ML Vial IVP PRN (07:19)
[2018-05-05] MEDS ORDERED: Docusate 100 MG CAP PO SCH (08:45)
[2018-05-05] MEDS: Zinc Sulfate 220 MG CAP PO SCH (09:33)
[2018-05-05] MEDS: Calcium Carbonate + Vit D 1 TAB PO SCH ×2 (09:33→16:29)
[2018-05-05] MEDS: DULoxetine 60 MG CAP PO SCH (09:33)
[2018-05-05] MEDS: Multivitamin W/ Minerals 1 TAB PO SCH (09:34)
[2018-05-05] MEDS: Famotidine 20 MG TAB PO SCH ×2 (09:34→21:26)
[2018-05-05] MEDS: Aspirin 325 mg Enteric Coated Tablet PO SCH (09:36)
[2018-05-05] MEDS: Furosemide 20 MG/2 ML VIAL SLOW IVP SCH (09:37)
[2018-05-05] MEDS: TROSPIUM 20 MG TABLET PO SCH (09:37)
[2018-05-05] MEDS: Enoxaparin Sodium 40 MG/0.4 ML SYRINGE SC SCH (09:37)
--- NOTE | 2018-05-05 16:07 | PRG ---
DATE OF SERVICE: 05/05/2018 ATTENDING PHYSICIAN: Dr. Artem Ansari. SUBJECTIVE: Ms. Lerner is an 78-year-old woman who is postoperative day number 5 , status post Armani's procedure for large bowel obstruction. She is awake and alert. She has adequate pain control. She was previously moved to the [facility] area after she had an episode of atrial fibrillation with rapid ventricular response. Cardiology has been following her. She converted from atrial fibrillation with RVR to sinus rhythm after a brief time on IV amiodarone. She denies pain or dyspnea overnight. OBJECTIVE: VITAL SIGNS: Temperature 97.8, pulse 94, respirations 16, O2 sat 94% on room air, blood pressure 173/89. GENERAL: Elderly female, lying in bed, in no acute distress. HEENT: Normocephalic, atraumatic. PULMONARY: Bilateral breath sounds clear. Respirations unlabored. CARDIOVASCULAR: Regular rate and rhythm. ABDOMEN: Soft, nondistended. Colostomy healthy and functioning. NEUROLOGIC: GCS 15. ASSESSMENT: 1. Postoperative day number 5, status post Armani's procedure. 2. Status post acute onset of atrial fibrillation, converted to sinus rhythm after initiation of amiodarone, Cardiology following. 3. Tolerating regular diet. PLAN: 1. Continue regular diet. 2. Encourage ambulation. 3. The patient may transfer out of [facility] when okay with Cardiology and Hospital Medicine. 4. Plan for patient to transfer to telemetry unit. The patient was seen with Dr. Ansari who agrees with plan. [facility]
[2018-05-05] MEDS: traMADol HCl 50 MG TAB PO PRN (16:30)
[2018-05-05] MEDS: Atorvastatin Calcium 10 MG TAB PO SCH (21:25)
--- NOTE | 2018-05-05 23:08 | PDOC.PN ---
- Subjective Encounter Start Date: 05/05/18 Encounter Start Time: 10:45 - Objective Resuscitation Status: Resuscitation Status FULL:Full Resuscitation Vital Signs & Weight: Vital Signs (12 hours) Temp Pulse Resp BP BP Pulse Ox 05/05/18 21:25 169/78 H 05/05/18 20:00 98.5 F 83 18 169/78 H 92 L 05/05/18 16:35 98.8 F 89 18 168/77 H 95 05/05/18 15:20 97.5 F L 79 16 170/90 H 95 Weight Admit Weight 131 lb Weight 131 lb Most Recent Monitor Data Heart Rate from ECG 113 NIBP 136/71 NIBP BP-Mean 117 Respiration from ECG 20 SpO2 94 I&O: 05/04/18 05/05/18 05/06/18 06:59 06:59 06:59 Intake Total 1434 1060 Output Total 2155 1150 1250 [facility] Result Diagrams: 05/04/18 04:35 05/04/18 04:35 Phys Exam - Physical Examination Constitutional: NAD Respiratory: no wheezing, no rales, no rhonchi Cardiovascular: RRR, no significant murmur Gastrointestinal: soft, non-tender, no distention, positive bowel sounds Dx/Plan (1) Large bowel obstruction Code(s): K56.609 - UNSP INTESTNL OBST, UNSP TO PARTIAL VERSUS COMPLETE OBST Status: Acute Comment: resolved after surgery, pathology report pending (2) S/P laparotomy Status: Acute Comment: s/p sigmoidectomy and colostomy (3) Hypertension Code(s): I10 - ESSENTIAL (PRIMARY) HYPERTENSION Status: Chronic (4) Atrial fibrillation with RVR Code(s): I48.91 - UNSPECIFIED ATRIAL FIBRILLATION Status: Resolved Comment: convereted to NSR - Plan cont current plan of care, PT/OT * Transfer to floor.
[2018-05-06] MEDS: Acetaminophen 500 MG TAB PO SCH ×5 (03:00→21:01)
[2018-05-06] MEDS: traMADol HCl 50 MG TAB PO SCH ×4 (03:00→21:11)
[2018-05-06 04:59] LABS: #Basophils 0.1 thou/uL (0.0-0.2); #Eosinphils 0.1 thou/uL (0.0-0.7); #Lymphocytes 5.9 thou/uL (1.20-3.40); #Monocytes 1.1 thou/uL (0.11-0.59); #Neutrophils 10.1 thou/uL (1.40-6.50); %Basophils 0.5 % (0.0-1.0); %Eosinophils 0.6 % (0.0-10.0); %Monocytes 6.3 % (0.0-10.0); %Neutrophils 58.7 % (42.0-75.0); Hemoglobin 10.3 g/dL (12.0-16.0); Mean Corpuscular HGB CONC 34.4 g/dL (32.0-36.0); Mean Corpuscular Hemoglobin 29.9 pg (27.0-31.0); Mean Platelet Volume 7.7 fL (7.4-10.4); Platelet Count 329 thou/uL (130-400); RBC Distribution Width 12.1 % (11.5-14.5); Red Blood Cell (RBC) Count 3.46 mill/uL (4.20-5.40); White Blood Cell (WBC) Count 17.3 thou/uL (4.8-10.8)
[2018-05-06 05:28] LABS: Anion Gap 15 mmol/L (10-20); BUN (Urea Nitrogen) 25 mg/dL (9.8-20.1); Calc. Creatinine Clearance 50 mL/min (70-130); Calcium 10.6 mg/dL (7.8-10.44); Carbon Dioxide 29 mmol/L (23-31); Chloride 97 mmol/L (98-107); Estimated GFR-MDRD 65; Glucose 111 mg/dL (83-110); Sodium 137 mmol/L (136-145)
[2018-05-06] MEDS: Zinc Sulfate 220 MG CAP PO SCH (09:00)
[2018-05-06] MEDS: TROSPIUM 20 MG TABLET PO SCH (10:02)
[2018-05-06] MEDS: Famotidine 20 MG TAB PO SCH ×2 (10:03→21:02)
[2018-05-06] MEDS: Multivitamin W/ Minerals 1 TAB PO SCH (10:03)
[2018-05-06] MEDS: Enoxaparin Sodium 40 MG/0.4 ML SYRINGE SC SCH (10:03)
[2018-05-06] MEDS: Aspirin 325 mg Enteric Coated Tablet PO SCH (10:03)
[2018-05-06] MEDS: Calcium Carbonate + Vit D 1 TAB PO SCH (10:03)
[2018-05-06] MEDS: Furosemide 20 MG/2 ML VIAL SLOW IVP SCH (10:04)
[2018-05-06] MEDS: DULoxetine 60 MG CAP PO SCH (10:07)
--- NOTE | 2018-05-06 13:00 | PDOC.EVN ---
Event Note - Event Note Event Note: Patient sleeping. Talked with her son. He reports that the patient is having some delirium. His brother spoke with her on the phone and agrees. Believes it may be related to medication. Agreed to let her sleep a bit longer and I will come back later.
--- NOTE | 2018-05-06 13:30 | PDOC.CTH ---
<LalyaliciaHelen Guy - Last Filed: 05/06/18 13:32> Cardiology Progress Note - Subjective c/o feeling tired. No CP/SOB/palpitations. No overnight events, but son says she is having MS changes. - Objective Vital Signs Temp Pulse Resp BP Pulse Ox 05/06/18 08:06 98.2 F 96 16 175/84 H 92 L 05/06/18 08:00 98.2 F 96 16 05/06/18 04:00 98.7 F 94 18 170/82 H 92 L Admit Weight 131 lb Weight 131 lb 05/05/18 05/06/18 05/07/18 06:59 06:59 06:59 Intake Total 1060 100 Output Total 1150 1250 Balance -90 -1150 - Physical Examination General/Neuro: alert & oriented x3 Lungs: CTA Heart: RRR Abdomen: other: (NTTP; mild distention; +BS x 4) Extremities: other: (no edema) - Telemetry Telemetry Rhythm: SR - Labs Result Diagrams: 05/06/18 04:22 05/06/18 04:22 Troponin/CKMB CK-MB (CK-2) 3.5 ng/mL (0-6.6) 05/03/18 15:51 Troponin I 0.017 ng/mL (< 0.028) 05/03/18 15:51 - Assessment/Plan 1. s/p sigmoid colectomy 2. Post-op AF - one hour and converted back to NSR on IV Amio 3. MS changes 4. HTN Patient stable cardiac status. No recurrance of AF on Toprol XL. No changes to meds. Continue to treat HTH. BP labile in the last 72 hours. She is AAOx3 to me today, but this is the firs time I have seen her. Spoke with son who is working with primary team to determine etiology. <Puma Heller - Last Filed: 05/06/18 17:14> Cardiology Progress Note - Objective Vital Signs Temp Pulse Resp BP Pulse Ox 05/06/18 16:30 99.2 F 96 16 144/71 H 91 L 05/06/18 13:56 90 05/06/18 13:52 98.5 F 90 16 190/88 H 90 L 05/06/18 08:06 98.2 F 96 16 175/84 H 92 L 05/06/18 08:00 98.2 F 96 16 Admit Weight 131 lb Weight 131 lb 05/05/18 05/06/18 05/07/18 06:59 06:59 06:59 Intake Total 1060 100 Output Total 1150 1250 Balance -90 -1150 - Labs Result Diagrams: 05/06/18 04:22 05/06/18 04:22 Troponin/CKMB CK-MB (CK-2) 3.5 ng/mL (0-6.6) 05/03/18 15:51 Troponin I 0.017 ng/mL (< 0.028) 05/03/18 15:51 - Assessment/Plan Pt seen and examined. Agree with above. Decreased BS present. From a CV standpoint, pt is stable. Gabino sweet need o/p 3 week event recorder.
[2018-05-06] MEDS: hydrALAZINE 20 MG/ML VIAL SLOW IVP PRN (13:56)
--- NOTE | 2018-05-06 14:22 | PDOC.PN ---
- Subjective Encounter Start Date: 05/06/18 Encounter Start Time: 13:45 Patient's son feels she is having a little trouble with mental clarity. She says she does not feels as well today. Can't be more specific. Not eating much. Stomach does not feel distended to her. - Objective Resuscitation Status: Resuscitation Status FULL:Full Resuscitation Vital Signs & Weight: Vital Signs (12 hours) Temp Pulse Resp BP Pulse Ox 05/06/18 13:56 90 05/06/18 13:52 98.5 F 90 16 190/88 H 90 L 05/06/18 08:06 98.2 F 96 16 175/84 H 92 L 05/06/18 08:00 98.2 F 96 16 05/06/18 04:00 98.7 F 94 18 170/82 H 92 L Weight Admit Weight 131 lb Weight 131 lb Most Recent Monitor Data Heart Rate from ECG 113 NIBP 136/71 NIBP BP-Mean 117 Respiration from ECG 20 SpO2 94 I&O: 05/05/18 05/06/18 05/07/18 06:59 06:59 06:59 Intake Total 1060 100 Output Total 1150 1250 Balance -90 -1150 Result Diagrams: 05/06/18 04:22 05/06/18 04:22 Radiology Reviewed by me: Yes Phys Exam - Physical Examination Constitutional: NAD Looks a little groggy compared to yesterday. Respiratory: no wheezing, no rales, no rhonchi, clear to auscultation bilateral Cardiovascular: RRR, no significant murmur Gastrointestinal: soft Abdomen feels a little taught. Modest BS. Not significantly TTP.. 2+ bilateral LE edema, pitting. Deviation from normal: Appropriate Skin: no rash Dx/Plan (1) Large bowel obstruction Code(s): K56.609 - UNSP INTESTNL OBST, UNSP TO PARTIAL VERSUS COMPLETE OBST Status: Acute Comment: resolved after surgery, pathology report diverticulitis. Now has mild distention. KUB performed. Looks like there may be some constipation. Will defer to surgery as to how aggressive to be. (2) S/P laparotomy Status: Acute Comment: s/p sigmoidectomy and colostomy (3) Hypertension Code(s): I10 - ESSENTIAL (PRIMARY) HYPERTENSION Status: Chronic Comment: On increased dose of Toprol. BP still a little high, but tolerable. (4) Atrial fibrillation with RVR Code(s): I48.91 - UNSPECIFIED ATRIAL FIBRILLATION Status: Resolved Comment: convereted to NSR. On beta keila. Controlled. (5) Leukocytosis Code(s): D72.829 - ELEVATED WHITE BLOOD CELL COUNT, UNSPECIFIED Status: Acute Comment: Unclear etiology. Abd is a little distended. Will check a Ua and CXR. (6) Lethargy Code(s): R53.83 - OTHER FATIGUE Status: Acute Comment: Has not really had much in the way of medical sedation. Exploring possibility of infection. (7) Acute diverticulitis Code(s): K57.92 - DVTRCLI OF INTEST, PART UNSP, W/O PERF OR ABSCESS W/O BLEED Status: Acute Comment: With bowel obstruction. S/P surg with diversion. - Plan * Follow up imaging and UA.
--- NOTE | 2018-05-06 14:24 | RAD ---
SINGLE VIEW OF ABDOMEN: Date: 05/06/18 COMPARISON: 04/30/18. HISTORY: Postoperative abdominal distention. FINDINGS: Single view of the abdomen shows a nonspecific, nonobstructed bowel gas pattern. Contrast is seen in the right colon from previous contrast examination. A few mildly enlarged air-filled loops of small b owel are seen in the left abdomen. There are healed pelvic fractures. Degenerative changes are seen i n the spine. IMPRESSION: Nonspecific bowel gas pattern. POS: [facility]
--- NOTE | 2018-05-06 15:08 | PRG ---
DATE OF SERVICE: 05/06/2018 SUBJECTIVE: This is an 78-year-old female who is postop day 6 status post sigmoidectomy and colostomy. There were no acute overnight events. The patient was transferred to the telemetry unit yesterday. This morning, she has a chief complaint of abdominal bloating and decreased appetite with hiccups. OBJECTIVE: VITAL SIGNS: Temperature 98.2, pulse 96, respirations 16, O2 sat 92% on room air, blood pressure 175/84. GENERAL: Elderly female, sitting in chair, out of bed, in no acute distress. PULMONARY: Normal work of breathing. Symmetric rise. LUNGS: Clear to auscultation bilaterally. CARDIOVASCULAR: Regular rate and rhythm. GASTROINTESTINAL: Abdomen is mildly firm and distended. There is no guarding or rigidity. Ostomy is pink with some liquid stool, but no air in the pouch. NEUROLOGIC: No focal deficit is noted. LABORATORY DATA: WBC 17.3, hemoglobin 10.3, hematocrit 30.1, platelet count 329 ,000. Sodium 137, potassium 4.0, chloride 97, carbon dioxide 29, BUN 25, creatinine 0.84, glucose 111. RADIOGRAPHIC FINDINGS: Abdominal x-ray showed nonspecific bowel gas pattern. ASSESSMENT: 1. Postop day 6 status post sidgmoidectomy and end colostomy 2. Abdominal bloating and distention, status post above procedure, concern for ileus. 3. Acute onset atrial fibrillation, now in sinus rhythm, followed by Cardiology. 4. Hypertension. PLAN: Add neostigmine 0.5 mg q.6 hours subcutaneously. Encourage mobility. Follow ostomy output. Supportive care as ordered by primary team. Plan of care was discussed with the patient and all questions were answered at the time of this dictation. The patient was discussed with Dr. Ansari. SARAH
--- NOTE | 2018-05-06 15:57 | RAD ---
AP VIEW CHEST: Date: 05/06/18 HISTORY: New onset atrial fibrillation. FINDINGS: Comparison made to previous exam from 05/03/18. AP view of chest demonstrates a right subclavian central line in place. There is suboptimal inspirato ry effort. No evidence of effusions, pneumonia, or pneumothorax seen. IMPRESSION: Suboptimal inspiratory effort. Otherwise unremarkable AP view chest. POS: [facility]
[2018-05-06 17:11] LABS: Bilirubin Negative (Negative); Blood, Urine Negative (Negative); Clarity TURBID (Clear); Glucose, Urine (Dipstick) Negative (Negative); Leukocyte Large (Negative); Nitrite Negative (Negative); Protein, Urine (Dipstick) Negative (Neg-Trace); Specific Gravity, Urine 1.017 (1.002-1.036); Urobilinogen 0.2 mg/dL (0.2-1.0); pH, Urine 6.5 (5.0-9.0)
[2018-05-06 17:13] LABS: Bacteria/HPF 4+ HPF (None Seen); Hyaline Casts/LPF 7-10 HYALINE CAST LPF (0-3 Hyaline); Pathc Cast-AUWi Flag 2.39 (0-2.49)
[2018-05-06 17:17] LABS: Crystals/HPF None Seen HPF (Negative); RBC/HPF 0-3 HPF (0-3)
[2018-05-06] MEDS: Neostigmine 0.5 MG in Admixture Fee 1 EACH SC SCH ×2 (17:59→21:03)
[2018-05-06] MEDS ORDERED: cefTRIAXone\\ROCEPHIN 1 GM in Sodium Chloride 0.9% 100 ML IVPB SCH (18:00)
[2018-05-06] MEDS: Piperacillin/Tazobactam 3.375 GM in Sodium Chloride 0.9% 100 ML IVPB SCH (18:30)
[2018-05-06] MEDS: Atorvastatin Calcium 10 MG TAB PO SCH (21:01)
[2018-05-07] MEDS: Piperacillin/Tazobactam 3.375 GM in Sodium Chloride 0.9% 100 ML IVPB SCH ×4 (00:50→20:46)
[2018-05-07] MEDS: Acetaminophen 500 MG TAB PO SCH ×4 (04:28→21:32)
[2018-05-07] MEDS: Neostigmine 0.5 MG in Admixture Fee 1 EACH SC SCH ×4 (04:28→21:35)
[2018-05-07] MEDS: traMADol HCl 50 MG TAB PO SCH ×4 (04:29→21:35)
[2018-05-07] MEDS: TROSPIUM 20 MG TABLET PO SCH (09:06)
[2018-05-07] MEDS: DULoxetine 60 MG CAP PO SCH (09:06)
[2018-05-07] MEDS: Multivitamin W/ Minerals 1 TAB PO SCH (09:06)
[2018-05-07] MEDS: Enoxaparin Sodium 40 MG/0.4 ML SYRINGE SC SCH (09:07)
[2018-05-07] MEDS: Aspirin 325 mg Enteric Coated Tablet PO SCH (09:07)
[2018-05-07] MEDS: Furosemide 20 MG/2 ML VIAL SLOW IVP SCH (09:07)
[2018-05-07] MEDS: Famotidine 20 MG TAB PO SCH (09:07)
[2018-05-07 09:27] LABS: Anion Gap 14 mmol/L (10-20); BUN (Urea Nitrogen) 39 mg/dL (9.8-20.1); Calc. Creatinine Clearance 44 mL/min (70-130); Calcium 10.1 mg/dL (7.8-10.44); Carbon Dioxide 28 mmol/L (23-31); Chloride 100 mmol/L (98-107); Estimated GFR-MDRD 57; Glucose 112 mg/dL (83-110); Sodium 138 mmol/L (136-145)
[2018-05-07 09:58] LABS: Band 3 % (5-11); Hemoglobin 9.5 g/dL (12.0-16.0); Lymphocytes 43 % (21-51); MDiff Complete? YES; Mean Corpuscular HGB CONC 33.8 g/dL (32.0-36.0); Mean Corpuscular Hemoglobin 29.6 pg (27.0-31.0); Mean Corpuscular Volume 87.4 fL (78.0-98.0); Mean Platelet Volume 7.8 fL (7.4-10.4); Monocytes 2 % (0-10); Neutrophil 52 % (42-75); Platelet Count 327 thou/uL (130-400); RBC Distribution Width 12.4 % (11.5-14.5); Red Blood Cell (RBC) Count 3.22 mill/uL (4.20-5.40); White Blood Cell (WBC) Count 19.4 thou/uL (4.8-10.8)
[2018-05-07] MEDS: Zinc Sulfate 220 MG CAP PO SCH (10:12)
[2018-05-07] MEDS ORDERED: Chloraseptic Spray 180 ml Bottle PO PRN (11:52)
--- NOTE | 2018-05-07 12:55 | PDOC.CTH ---
Cardiology Progress Note - Subjective c/o trouble swallowing. No CP, SOB or ZIEGLER. No palpitations - Objective Vital Signs Temp Pulse Resp BP Pulse Ox 05/07/18 09:04 98.0 F 79 16 158/72 H 94 L 05/07/18 04:20 98.2 F 88 18 160/75 H 92 L 05/07/18 01:00 95 Admit Weight 131 lb Weight 131 lb 05/06/18 05/07/18 05/08/18 06:59 06:59 06:59 Intake Total 100 300 Output Total 1250 2050 Balance -1150 -1750 - Physical Examination General/Neuro: alert & oriented x3 Lungs: CTA Heart: RRR Abdomen: soft, other: (distended. + BS) - Telemetry Telemetry Rhythm: SR - Labs Result Diagrams: 05/07/18 08:40 05/07/18 08:40 Troponin/CKMB CK-MB (CK-2) 3.5 ng/mL (0-6.6) 05/03/18 15:51 Troponin I 0.017 ng/mL (< 0.028) 05/03/18 15:51 - Assessment/Plan 1. s/p colon surgery for ruptured diverticula 2. Post-op AFib 3. HTN Continue current meds. No changes to care from cardiac standpoint. Swallowing study pending. Increase activity.
--- NOTE | 2018-05-07 14:04 | PDOC.PN ---
- Subjective Encounter Start Date: 05/07/18 Encounter Start Time: 10:25 Denies specific complaint. She is not sure if the stoma is functioning or not. - Objective Resuscitation Status: Resuscitation Status FULL:Full Resuscitation Vital Signs & Weight: Vital Signs (12 hours) Temp Pulse Resp BP Pulse Ox 05/07/18 12:21 98.3 F 77 16 143/65 H 91 L 05/07/18 09:04 98.0 F 79 16 158/72 H 94 L 05/07/18 04:20 98.2 F 88 18 160/75 H 92 L Weight Admit Weight 131 lb Weight 131 lb Most Recent Monitor Data Heart Rate from ECG 113 NIBP 136/71 NIBP BP-Mean 117 Respiration from ECG 20 SpO2 94 I&O: 05/06/18 05/07/18 05/08/18 06:59 06:59 06:59 Intake Total 100 300 Output Total 1250 0 Balance -1150 -1750 Result Diagrams: 05/07/18 08:40 05/07/18 08:40 Phys Exam - Physical Examination Constitutional: NAD Respiratory: no wheezing, no rales, no rhonchi, clear to auscultation bilateral Cardiovascular: RRR, no significant murmur Gastrointestinal: positive bowel sounds Mild abdominal distention. Not tight. Musculoskeletal: no edema Neurological: non-focal Deviation from normal: Still seems a little encephalopathic. Dx/Plan (1) Large bowel obstruction Code(s): K56.609 - UNSP INTESTNL OBST, UNSP TO PARTIAL VERSUS COMPLETE OBST Status: Acute Comment: resolved after surgery, pathology report diverticulitis. Now has mild distention. KUB performed. Looks like there may be some constipation. Neostigmine ordered. Has some gas passage. Small amount of liquid stool in bag. DW Penelope. Will continue the same for now. Has mild abdominal distention, but slightly better today than yesterday. (2) S/P laparotomy Status: Acute Comment: s/p sigmoidectomy and colostomy (3) Hypertension Code(s): I10 - ESSENTIAL (PRIMARY) HYPERTENSION Status: Chronic Comment: On increased dose of Toprol. BP still a little high, but tolerable. (4) Atrial fibrillation with RVR Code(s): I48.91 - UNSPECIFIED ATRIAL FIBRILLATION Status: Resolved Comment: convereted to NSR. On beta keila. Controlled. (5) Leukocytosis Code(s): D72.829 - ELEVATED WHITE BLOOD CELL COUNT, UNSPECIFIED Status: Acute Comment: Unclear etiology. Some evidence of UTI, but poor specimen. On Zosyn. WBC higher today. Need to monitor. No specific souce of concern identified. (6) Lethargy Code(s): R53.83 - OTHER FATIGUE Status: Acute Comment: Has not really had much in the way of medical sedation. Exploring possibility of infection. (7) Acute diverticulitis Code(s): K57.92 - DVTRCLI OF INTEST, PART UNSP, W/O PERF OR ABSCESS W/O BLEED Status: Acute Comment: With bowel obstruction. S/P surg with diversion. - Plan * As above.
--- NOTE | 2018-05-07 16:32 | PRG ---
DATE OF SERVICE: 05/07/2018 SUBJECTIVE: This is an 78-year-old female on postop day #7 status post sigmoidectomy and colostomy. There were no acute overnight events. The patient's mental status is improved after starting antibi otics for suspected urinary tract infection. This morning, she has a chief complaint of difficulty s wallowing. OBJECTIVE: VITAL SIGNS: Temperature 98.0, pulse 79, respirations 16, O2 sat 94% on room air, blood pressure 158 /72. GENERAL: Elderly appearing female resting in bed in no acute distress. PULMONARY: Normal work of breathing. Symmetric rise. CARDIOVASCULAR: Regular rate and rhythm. GASTROINTESTINAL: Abdomen is mildly firm, but softer than yesterday and distended. Bowel sounds are positive. There is no guarding or rigidity. Ostomy is pink with some liquid stool and air in the p ouch. NEUROLOGIC: No focal deficit is noted. LABORATORY DATA: WBC 19.4, hemoglobin 9.5, hematocrit 28.2, platelet count 327. Sodium 138, potassi um 4.0, chloride 100, BUN 39, creatinine 0.95, glucose 112. ASSESSMENT: 1. Postop day #7 status post sigmoidectomy and colostomy. 2. Ileus. 3. Atrial fibrillation, resolved, followed by Cardiology. 4. Hypertension, improved. PLAN: Speech evaluation for dysphagia. The patient does not have any focal deficits. I have discus sed the case with Hospital Medicine. The patient should continue to ambulate regularly. We will tra nsfer to surgical floor as patient has been in sinus rhythm for multiple days now. Continue neostigm ine until bowel function improves. Other supportive care as ordered. Plan of care was discussed wit h the patient and family at bedside. All questions were answered at the time of this dictation. The patient was discussed with Dr. Ansari.
[2018-05-07] MEDS: Atorvastatin Calcium 10 MG TAB PO SCH (21:32)
--- NOTE | 2018-05-07 23:30 | CON ---
DATE OF CONSULTATION: 05/07/2018 SERVICE: Pulmonary Medicine. REASON FOR CONSULTATION: Sepsis. HISTORY OF PRESENT ILLNESS: Patient is an 78-year-old white female with past medical history significant for essentially nothing. She presented to the Emergency Department with lower abdominal discomfort which was ultimately discovered to be an inflammatory phlegmon causing obstruction of the large bowel. This was likely secondary to diverticulitis. She is postop day #7 from a partial colectomy, and colostomy formation. Her white blood cell count has been going upward for the last couple of days. Yesterday, she was encephalopathic and had glassy look about her. She was initiated on some Zosyn. Today, she continues to have abdominal discomfort, but her notes that she is much more awake and alert. She is less lethargic today and her mentation is improved. She denies any current nausea or vomiting. The last time she vomited was roughly 2 days ago. She is tolerating gentle p.o. She is not having a lot of output from the ostomy. As such, Surgery is giving her scheduled doses of neostigmine. She denies having any fevers or chills. She is not having any cough. There are no new rashes, hot, red, swollen joints , or arthralgias. She is not having any ear aches, or discharge from the nose. PAST MEDICAL HISTORY: 1. Hypertension. 2. Dyslipidemia. 3. Osteoporosis. PAST SURGICAL HISTORY: 1. Hysterectomy. 2. Colonoscopy. 3. Partial colectomy with colostomy formation. SOCIAL HISTORY: Negative for alcohol, tobacco or illicit drugs. The patient is retired. She lives at home with her . She has no exposure to chemicals, dust asbestos or tuberculosis. FAMILY HISTORY: Noncontributory. ALLERGIES: CODEINE, SULFA. MEDICATIONS: List of her inpatient medications were reviewed. No specific updates were made at this time. REVIEW OF SYSTEMS: General, head, ears, eyes, nose, throat, cardiovascular, respiratory, GI, , musculoskeletal, neurologic and skin is negative except as mentioned in the HPI. PHYSICAL EXAMINATION: VITAL SIGNS: Afebrile, pulse 66, blood pressure 161/77, respirations 16, saturation 92% on room air. GENERAL: The patient is awake, alert, no apparent distress. LUNGS: Decent air entry. There are some dependent crackles present, but no prolonged expiratory phase or wheezing is appreciated. HEART: Normal rate, regular. ABDOMEN: Soft, nontender, nondistended. Bowel sounds are positive. MUSCULOSKELETAL: No cyanosis or clubbing. There is 1+ pitting in the bilateral lower extremities. NEUROLOGIC: Grossly nonfocal. LABORATORY DATA: WBC 19.4, hemoglobin 9.5, platelets 327,000. Basic metabolic profile is essentially unremarkable with a creatinine of 0.95. Urinalysis is positive for white blood cells. That being said, nitrites were negative. Leukocyte esterase was large. There is 4+ bacteria identified on 07/06. Urine culture is negative. ASSESSMENT: 1. Sepsis without evidence of end-organ damage. 2. Diverticulitis status post partial colectomy, and colostomy formation, postop day #7. 3. Deconditioning. DISCUSSION AND PLAN: We will make certain that we get her out of bed into a chair 3 times daily. We will have ambulate her frequently. If the white count goes up tomorrow, and she starts having increasing signs of systemic inflammatory response, we can add antifungal coverage. That being said, she has only been on Zosyn now for less than 24 hours. I would like to see if she responds to this. Clinically, she is doing better today than yesterday. Hopefully, she will continue to move in this direction. Pulmonary Critical Care will continue to follow for 1-2 days until she more clearly turns the corner. 70 minutes have been devoted to this patient in various activities. I personally reviewed all imaging studies and laboratory data noted within this document. For fifty percent of this time, I was interacting with the patient at the bedside or coordinating care with the care team. For the remainder of the time I was immediately available to the patient in the hospital unit. SARAH
[2018-05-08] MEDS: Piperacillin/Tazobactam 3.375 GM in Sodium Chloride 0.9% 100 ML IVPB SCH ×5 (00:48→23:33)
[2018-05-08] MEDS: Acetaminophen 500 MG TAB PO SCH ×4 (03:48→21:32)
[2018-05-08] MEDS: traMADol HCl 50 MG TAB PO SCH ×4 (03:49→22:45)
[2018-05-08] MEDS: Neostigmine 0.5 MG in Admixture Fee 1 EACH SC SCH (03:49)
[2018-05-08 06:26] LABS: Anion Gap 11 mmol/L (10-20); BUN (Urea Nitrogen) 36 mg/dL (9.8-20.1); Calc. Creatinine Clearance 44 mL/min (70-130); Calcium 9.8 mg/dL (7.8-10.44); Carbon Dioxide 30 mmol/L (23-31); Chloride 99 mmol/L (98-107); Estimated GFR-MDRD 57; Glucose 89 mg/dL (83-110); Phosphorus 2.5 mg/dL (2.3-4.7); Potassium 3.3 mmol/L (3.5-5.1); Sodium 137 mmol/L (136-145)
[2018-05-08 06:54] LABS: Band 5 % (5-11); Eosinophils 2 % (0-10); Hemoglobin 9.6 g/dL (12.0-16.0); Lymphocytes 44 % (21-51); MDiff Complete? YES; Mean Corpuscular HGB CONC 33.5 g/dL (32.0-36.0); Mean Corpuscular Hemoglobin 29.5 pg (27.0-31.0); Mean Corpuscular Volume 88.3 fL (78.0-98.0); Mean Platelet Volume 7.8 fL (7.4-10.4); Monocytes 6 % (0-10); Neutrophil 38 % (42-75); Platelet Count 355 thou/uL (130-400); RBC Distribution Width 12.6 % (11.5-14.5); Reactive Lymphocytes 4 % (0-10); Red Blood Cell (RBC) Count 3.26 mill/uL (4.20-5.40); White Blood Cell (WBC) Count 23.3 thou/uL (4.8-10.8)
[2018-05-08] MEDS ORDERED: Potassium Phosphate 30 MMOL in Sodium Chloride 0.9% 500 ML IVPB SCH (08:00)
[2018-05-08] MEDS: DULoxetine 60 MG CAP PO SCH (09:52)
[2018-05-08] MEDS: TROSPIUM 20 MG TABLET PO SCH (09:56)
[2018-05-08] MEDS: Famotidine 20 MG TAB PO SCH (09:57)
[2018-05-08] MEDS: Aspirin 325 mg Enteric Coated Tablet PO SCH (09:57)
[2018-05-08] MEDS: Zinc Sulfate 220 MG CAP PO SCH (09:58)
[2018-05-08] MEDS: Multivitamin W/ Minerals 1 TAB PO SCH (09:59)
[2018-05-08] MEDS: Enoxaparin Sodium 40 MG/0.4 ML SYRINGE SC SCH (09:59)
[2018-05-08] MEDS: Furosemide 20 MG/2 ML VIAL SLOW IVP SCH (09:59)
[2018-05-08] MEDS ORDERED: ISOVUE-370 76%-LOCM 1 ML ONE (10:05)
[2018-05-08] MEDS ORDERED: Magnesium Citrate 300 ML BOT PO SCH (11:15)
--- NOTE | 2018-05-08 11:43 | PRG ---
DATE OF SERVICE: 05/08/2018 SUBJECTIVE: Ms. Lerner is an 78-year-old woman 1 week status post Armani's procedure for diverticul ar stricture with large bowel obstruction. The patient is awake and alert today. She reports adequa te pain control. Although her vital signs remained stable, the patient has a rising white blood cell count over the last 3 days. OBJECTIVE: VITAL SIGNS: Today includes blood pressure 153/75, pulse is 77, respiration rate 16, temperature is 98 degrees Fahrenheit, oxygen saturation is 93% on room air. HEENT: Reveals normocephalic and atraumatic. HEART: Reveals regular rate and rhythm, no murmurs or gallops auscultated. CHEST: Lungs clear to auscultation bilaterally. Her breathing is regular and unlabored. ABDOMEN: Soft, moderately distended. Incision is intact, clean, and dry. There is no induration. Colostomy is viable with minimal stool and gas output. NEUROLOGIC: Reveals no focal deficits present. LABORATORY DATA: Today includes a CBC with 23,300 white blood cells, hemoglobin and hematocrit stabl e at 9.6 and 28.8 respectively. Platelet count is 255,000. Differential counts as follows, 38% segmented neutrophils, 5 bands, 44 lymphocytes, and 6 monocytes. Metabolic profile: Sodium 137, potassium is 3.6, chloride is 99, bicarbonate 30, BUN 36, creatinine is 0.95, glucose is 89. Phosphorus is 2.5. Magnesium is 2.0. CT scan of the abdomen and pelvis which was obtained today reveals a significant fecal stasis proxima l to the colostomy. There is also some free fluid, but no organized fluid collection to suggest an a bscess. IMPRESSION: 1. Postop day #8 status post Armani's procedure. 2. Acute fecal stasis. 3. Leukocytosis, likely secondary to #2 above. PLAN: 1. We will start the patient on stool softeners and monitor for resolution of the leukocytosis as th e bowel function returns. 2. Increase activity. 3. We will ask PM&R to evaluate the patient for possible post-discharge inpatient rehabilitation. The above findings and plan discussed with the patient who indicates understanding of information giv en. I have answered her questions.
--- NOTE | 2018-05-08 11:55 | CT ---
CONTRAST ENHANCED CT IMAGES ABDOMEN AND PELVIS: HISTORY: Status post ileostomy 1 weeks ago. FINDINGS: Contrast-enhanced CT images of the abdomen and pelvis were obtained. IV and oral contrast given. Images demonstrate small bilateral pleural effusions. No evidence of free intraperitoneal air is seen. A small to moderate amount of ascites is seen. The liver is unremarkable. The gallbladder is distended. A small hiatal hernia is seen. The patient has a colostomy. There is a large amount of stool in the ascending, transverse colon. T his patient appears to be constipated and there is proximal obstruction of the colon at the colostomy site due to fecal debris. The small bowel is not significantly distended. There is a distal rectal pouch seen. No definite ev idence of intraperitoneal abscess seen. The patient has had extensive old healed pelvic fractures seen. IMPRESSION: Large amount of stool in the colon with fecal debris just proximal to the colostomy site. POS: [facility]
[2018-05-08] MEDS: Ondansetron HCl/PF 4 MG/2 ML Vial IVP PRN (13:41)
--- NOTE | 2018-05-08 14:40 | PDOC.PN ---
- Subjective Encounter Start Date: 05/08/18 Encounter Start Time: 14:38 Subjective: still feels uncomfortable in abd, mi ostomy output - Objective Resuscitation Status: Resuscitation Status FULL:Full Resuscitation MAR Reviewed: Yes Vital Signs & Weight: Vital Signs (12 hours) Temp Pulse Resp BP BP Pulse Ox 05/08/18 12:00 97.6 F 83 18 152/84 H 93 L 05/08/18 09:55 139/76 05/08/18 08:25 97.6 F 83 18 93 L 05/08/18 07:42 98.1 F 75 16 166/81 H 93 L 05/08/18 04:00 98 F 77 16 153/75 H 93 L Weight Admit Weight 131 lb Weight 131 lb Most Recent Monitor Data Heart Rate from ECG 113 NIBP 136/71 NIBP BP-Mean 117 Respiration from ECG 20 SpO2 94 I&O: 05/07/18 05/08/18 05/09/18 06:59 06:59 06:59 Intake Total 300 590 100 Output Total 0 Balance -1750 590 100 Result Diagrams: 05/08/18 05:07 05/08/18 05:07 Phys Exam - Physical Examination Neck: no JVD Respiratory: clear to auscultation bilateral Cardiovascular: RRR, no significant murmur disteded, tympanitic, faint BS Musculoskeletal: no edema Dx/Plan (1) Large bowel obstruction Code(s): K56.609 - UNSP INTESTNL OBST, UNSP TO PARTIAL VERSUS COMPLETE OBST Status: Acute Comment: resolved after surgery, pathology report diverticulitis. Now has mild distention. KUB performed. Looks like there may be some constipation. Neostigmine ordered. Has some gas passage. Small amount of liquid stool in bag. DW Penelope. Will continue the same for now. Has mild abdominal distention, but slightly better today than yesterday. (2) Leukocytosis Code(s): D72.829 - ELEVATED WHITE BLOOD CELL COUNT, UNSPECIFIED Status: Acute Comment: Unclear etiology. Some evidence of UTI, but poor specimen. On Zosyn. WBC higher today. Need to monitor. No specific souce of concern identified. (3) S/P laparotomy Status: Acute Comment: s/p sigmoidectomy and colostomy (4) Dyslipidemia Code(s): E78.5 - HYPERLIPIDEMIA, UNSPECIFIED Status: Chronic (5) Hypertension Code(s): I10 - ESSENTIAL (PRIMARY) HYPERTENSION Status: Chronic Qualifiers: Hypertension type: essential hypertension Qualified Code(s): I10 - Essential (primary) hypertension Comment: On increased dose of Toprol. BP still a little high, but tolerable. (6) Atrial fibrillation with RVR Code(s): I48.91 - UNSPECIFIED ATRIAL FIBRILLATION Status: Resolved Comment: convereted to NSR. On beta keila. Controlled. - Plan expectant obs -: cont iv antibx -: cont statin, metoprolol * .
--- NOTE | 2018-05-08 16:10 | PRG ---
DATE OF SERVICE: 05/08/2018 SERVICE: Pulmonary Medicine. INTERVAL HISTORY: The patient is doing fine from a respiratory standpoint. She went down for CT of the belly today. She has been up walking yesterday. Today, she is sitting in a chair. She is doing everything she can to be more mobile. Otherwise, there has been no interval change to her condition . PHYSICAL EXAMINATION: VITAL SIGNS: Afebrile, pulse 83, blood pressure 152/84, respirations 18, saturation 93% on room air. GENERAL: The patient is awake, alert, in no apparent distress. LUNGS: Decent air entry. There is no prolonged expiratory phase. Minimal dependent crackles are id entified. HEART: Normal rate, regular. ABDOMEN: Soft. There is a little bit of distention. Bowel sounds are present. There is diffuse te nderness to palpation, but no rebound or guarding is identified. MUSCULOSKELETAL: No cyanosis or clubbing. There is no pitting in the bilateral lower extremities. NEUROLOGIC: Grossly nonfocal. LABORATORY DATA: WBC 23.3 and up trending, hemoglobin 9.6, platelets 355,000. Band count is gently up trending. Neutrophils remain low at 38%. Creatinine 0.95 and stable. Basic metabolic profile, m agnesium and phosphorus are otherwise unremarkable. Potassium is only 3.3. Culture results remain n egative to date. IMAGING: CT of the abdomen and pelvis demonstrates a large amount of stool in the colon with fecal d ebris proximal to the colostomy site. No abscesses or drainable fluid collections are truly identifi ed. ASSESSMENT: 1. Sepsis without end organ damage. 2. Diverticulitis status post partial colectomy and colostomy formation, postop day 8. 3. Deconditioning. DISCUSSION AND PLAN: We can add some micafungin for a brief period of time to see whether or not her white blood cell count starts to trend in the correct direction. Pulmonary will continue to follow for the time being. Potassium will be replaced today.
[2018-05-08] MEDS ORDERED: FLUCONAZOLE IN NACL ISO OSM IVPB SCH (16:15)
[2018-05-08] MEDS: Atorvastatin Calcium 10 MG TAB PO SCH (21:32)
[2018-05-08] MEDS: Senokot 8.6 MG TAB PO SCH (21:33)
[2018-05-09] MEDS: traMADol HCl 50 MG TAB PO SCH ×4 (04:19→20:40)
[2018-05-09] MEDS: Acetaminophen 500 MG TAB PO SCH ×4 (04:19→20:37)
[2018-05-09] MEDS: traMADol HCl 50 MG TAB PO PRN (05:19)
[2018-05-09] MEDS: Piperacillin/Tazobactam 3.375 GM in Sodium Chloride 0.9% 100 ML IVPB SCH ×4 (05:30→23:30)
[2018-05-09 07:46] LABS: #Basophils 0.1 thou/uL (0.0-0.2); #Eosinphils 0.2 thou/uL (0.0-0.7); #Lymphocytes 4.4 thou/uL (1.20-3.40); #Monocytes 0.8 thou/uL (0.11-0.59); #Neutrophils 14.1 thou/uL (1.40-6.50); %Basophils 0.3 % (0.0-1.0); %Eosinophils 0.9 % (0.0-10.0); %Lymphocytes 22.6 % (21.0-51.0); %Monocytes 3.9 % (0.0-10.0); %Neutrophils 72.3 % (42.0-75.0); Hemoglobin 10.7 g/dL (12.0-16.0); Mean Corpuscular HGB CONC 34.1 g/dL (32.0-36.0); Mean Corpuscular Hemoglobin 30.1 pg (27.0-31.0); Mean Corpuscular Volume 88.2 fL (78.0-98.0); Mean Platelet Volume 7.6 fL (7.4-10.4); Platelet Count 393 thou/uL (130-400); RBC Distribution Width 12.7 % (11.5-14.5); Red Blood Cell (RBC) Count 3.57 mill/uL (4.20-5.40); White Blood Cell (WBC) Count 19.5 thou/uL (4.8-10.8)
[2018-05-09 08:03] LABS: Anion Gap 14 mmol/L (10-20); BUN (Urea Nitrogen) 32 mg/dL (9.8-20.1); Calc. Creatinine Clearance 42 mL/min (70-130); Calcium 9.3 mg/dL (7.8-10.44); Carbon Dioxide 27 mmol/L (23-31); Chloride 101 mmol/L (98-107); Estimated GFR-MDRD 53; Glucose 111 mg/dL (83-110); Magnesium 2.6 mg/dL (1.6-2.6); Potassium 3.7 mmol/L (3.5-5.1); Sodium 138 mmol/L (136-145)
[2018-05-09] MEDS: hydrALAZINE 20 MG/ML VIAL SLOW IVP PRN (08:16)
[2018-05-09] MEDS ORDERED: Fluconazole In NaCl,Iso-Osm 100 MG IVPB SCH (09:00)
[2018-05-09 09:44] LABS: Actual Bicarbonate (HCO3a) 26.4 mEq/L (22-28); Base Excess (BEa) 3.9 mEq/L (-2.0 to +3.0); CO2 Tension 32.6 mmHg (35.0-45.0); Calcium, Ionized 1.2 mmol/L (1.12-1.30); Carboxyhemoglobin (COHb) 1.2 gm% (0.0-3.0); Hemoglobin (Hb) 11.2 g/dL (12.0-16.0); Potassium - ABG Lab 3.6 mmol/L (3.70-5.30); pH, Arterial 7.53 (7.35-7.45)
[2018-05-09 09:45] LABS: Puncture Site L.R.
[2018-05-09 09:57] LABS: Lactic Acid 0.7 mmol/L (0.5-2.2)
--- NOTE | 2018-05-09 10:42 | RAD ---
KUB: HISTORY: Postoperative abdominal distention. NG tube placement. COMPARISON: 05/06/2018 FINDINGS: A single view of the abdomen shows air-filled loops of colon. Contrast is seen in the colon from rec ent contrast examination. An NG tube is seen in the upper abdomen, likely within the stomach. IMPRESSION: Nasogastric tube located in the stomach. POS: [facility]
[2018-05-09] MEDS: Micafungin 100 MG in Sodium Chloride 0.9% 100 ML IVPB SCH (11:09)
[2018-05-09] MEDS: Aspirin 325 mg Enteric Coated Tablet PO SCH ×2 (11:11→12:33)
[2018-05-09] MEDS: Furosemide 20 MG/2 ML VIAL SLOW IVP SCH (11:11)
[2018-05-09] MEDS: Enoxaparin Sodium 40 MG/0.4 ML SYRINGE SC SCH (11:11)
[2018-05-09] MEDS: Multivitamin W/ Minerals 1 TAB PO SCH ×2 (11:12→12:32)
[2018-05-09] MEDS: Famotidine 20 MG TAB PO SCH ×2 (11:12→12:33)
[2018-05-09] MEDS: DULoxetine 60 MG CAP PO SCH ×2 (11:12→12:32)
[2018-05-09] MEDS: Senokot 8.6 MG TAB PO SCH ×3 (11:13→20:40)
[2018-05-09] MEDS: TROSPIUM 20 MG TABLET PO SCH ×2 (11:13→12:32)
[2018-05-09] MEDS: Zinc Sulfate 220 MG CAP PO SCH ×2 (11:13→12:32)
[2018-05-09] MEDS: Polyethylene Glycol 3350 17 GM Packet PO SCH ×2 (11:13→12:33)
--- NOTE | 2018-05-09 13:20 | PDOC.PN ---
- Subjective Encounter Start Date: 05/09/18 Encounter Start Time: 13:18 Subjective: SLEEPY, POOORLY AROUSABLE - Objective Resuscitation Status: Resuscitation Status FULL:Full Resuscitation MAR Reviewed: Yes Vital Signs & Weight: Vital Signs (12 hours) Temp Pulse Resp BP BP Pulse Ox 05/09/18 12:32 143/82 H 05/09/18 11:12 143/82 H 05/09/18 11:08 97.5 F L 82 20 143/82 H 97 05/09/18 08:35 77 136/82 05/09/18 08:31 94 L 05/09/18 08:29 78 166/97 H 05/09/18 08:16 206/106 H 05/09/18 07:53 206/106 H 05/09/18 07:14 97.4 F L 78 20 177/104 H 93 L 05/09/18 04:35 168/104 H 05/09/18 04:00 98.0 F 78 16 94 L Weight Admit Weight 131 lb Weight 131 lb Most Recent Monitor Data Heart Rate from ECG 113 NIBP 136/71 NIBP BP-Mean 117 Respiration from ECG 20 SpO2 94 I&O: 05/08/18 05/09/18 05/10/18 06:59 06:59 06:59 Intake Total 590 700 Output Total 75 Balance 590 625 Result Diagrams: 05/09/18 07:35 05/09/18 07:35 Phys Exam - Physical Examination Neck: no JVD Respiratory: clear to auscultation bilateral Cardiovascular: RRR, no significant murmur distended, tympanitic, faint BS Musculoskeletal: no edema Dx/Plan (1) Large bowel obstruction Code(s): K56.609 - UNSP INTESTNL OBST, UNSP TO PARTIAL VERSUS COMPLETE OBST Status: Acute Comment: resolved after surgery, pathology report diverticulitis. Now has mild distention. KUB performed. Looks like there may be some constipation. Neostigmine ordered. Has some gas passage. Small amount of liquid stool in bag. SHERIF Penelope. Will continue the same for now. Has mild abdominal distention, but slightly better today than yesterday. (2) Leukocytosis Code(s): D72.829 - ELEVATED WHITE BLOOD CELL COUNT, UNSPECIFIED Status: Acute Comment: Unclear etiology. Some evidence of UTI, but poor specimen. On Zosyn. WBC higher today. Need to monitor. No specific souce of concern identified. (3) S/P laparotomy Status: Acute Comment: s/p sigmoidectomy and colostomy (4) Dyslipidemia Code(s): E78.5 - HYPERLIPIDEMIA, UNSPECIFIED Status: Chronic (5) Hypertension Code(s): I10 - ESSENTIAL (PRIMARY) HYPERTENSION Status: Chronic Qualifiers: Hypertension type: essential hypertension Qualified Code(s): I10 - Essential (primary) hypertension Comment: On increased dose of Toprol. BP still a little high, but tolerable. (6) Atrial fibrillation with RVR Code(s): I48.91 - UNSPECIFIED ATRIAL FIBRILLATION Status: Resolved Comment: convereted to NSR. On beta keila. Controlled. (7) Ileus following gastrointestinal surgery Code(s): K91.30 - POSTPROC INTESTINAL OBST, UNSP TO PARTIAL VERSUS COMPLETE Status: Acute - Plan plan discussed w/ family, respiratory therapy cont NG suction -: cont zosyn , micafungin -: ABG no evidense for resp failure -: no acidosis to suggest acute bowel injury -: serial exams * .
[2018-05-09] MEDS ORDERED: GoLYTELY 4,000 ml Bottle PO SCH (14:15)
--- NOTE | 2018-05-09 16:52 | PRG ---
DATE OF SERVICE: 05/09/2018 SUBJECTIVE: Ms. Lerner is an 78-year-old woman who is postoperative day #9 status post Armani's pro cedure. The patient has significant fecal stasis with an intermittent ostomy function. Today, she i s more lethargic. She does awake, however, to voice, but is quite fatigued. Urinary output; however , is adequate. She has tolerated a minimum of oral intake over the last [address] scan of the ab domen and pelvis which was obtained yesterday revealed no pneumoperitoneum, however, showed significa nt fecal stasis within the entire colon. No evidence of small-bowel obstruction noted. PHYSICAL EXAMINATION: VITAL SIGNS: Today includes blood pressure 136/82, pulse is 82, respiratory rate is 20, temperature is 97.5 degrees Fahrenheit, and oxygen saturation 97% on room air. HEENT: Reveals normocephalic and atraumatic. HEART: Reveals regular rate and rhythm, no murmurs or gallops auscultated. CHEST: Lungs clear to auscultation bilaterally. Breathing is regular and unlabored. ABDOMEN: Soft and distended. She has no tenderness to palpation. Incision remains intact, clean an d dry. Ostomy is viable with some gas and a small amount of semi-formed stool. LABORATORY DATA: Today includes CBC with 19,500 white blood cells, hemoglobin and hematocrit are 10. 7 and 31.5 respectively. Note that the white blood cell count yesterday was 23,300. Platelet count today is stable at 393,000. Metabolic profile; sodium 138, potassium 3.7, chloride is 101, bicarbona te is 27, BUN is 32, creatinine is 1.01, glucose is 111. Lactic acid is 0.7, phosphorus is 3.0, magn esium is 2.6 and ammonia level is 29. IMPRESSION: 1. Postop day #9 status post Armani's procedure for acute large bowel obstruction. 2. Fecal stasis. 3. Acute metabolic encephalopathy. PLAN: 1. I will perform tap water enema through the colostomy today to promote passage of stool. We will increase activity as tolerated. 2. Continue with IV antibiotics, as I suspect this patient is probably bacteria. 3. We will also replace the fluconazole with micafungin to cover yeast. Above findings and plan has been discussed with the patient, her and son at bedside. They al l indicated understanding of information given. I have answered their questions.
[2018-05-09] MEDS ORDERED: Sodium Chloride 0.9% 1,000 ML IV SCH (17:15)
--- NOTE | 2018-05-09 19:35 | PRG ---
DATE OF SERVICE: 05/09/2018 SERVICE: Pulmonary Medicine. INTERVAL HISTORY: The patient is doing poorly. Today, she is having some mentation issues. Her abd omen is actually increasingly distended. She does not have any specific complaints, but she is at th is point not safe to get out of bed. She cannot provide additional elements of the history. She can suggest whether or not she is having any shortness of breath or chest discomfort. OBJECTIVE: VITAL SIGNS: Afebrile, pulse 76, blood pressure 130/80, respirations 16, saturation 98% on 1.5 liter s nasal cannula. GENERAL: The patient is awake but encephalopathic. HEENT: Normocephalic, atraumatic. Sclerae are white, conjunctivae pink. Oral mucosa is moist witho ut lesions. LUNGS: Decent air entry. There is no prolonged expiratory phase. There are crackles present depend ently. HEART: Normal rate, regular. ABDOMEN: Distended. Bowel sounds are active. No rebound is present. There is diffuse tenderness t o palpation. : No Terry. NEUROLOGIC: Grossly nonfocal. MUSCULOSKELETAL: No cyanosis or clubbing. There is trace 1+ pitting in the bilateral lower extremit ies. LABORATORY DATA: WBC 19.5, hemoglobin 10.7 and stable, platelets 393,000. A pH 7.53, pCO2 of 32, pO 2 67. Creatinine 1.01. Basic metabolic profile, magnesium and phosphorus are otherwise unremarkable . Ammonia falls within the normal limits. Lactate is 0.7. Urine culture is negative x2. IMAGING: NG tube was placed in the stomach. There are dilated loops of bowel. ASSESSMENT: 1. Severe sepsis. 2. Metabolic encephalopathy. 3. Diverticulitis, status post partial colectomy with Armani formation, postop day 9. 4. Deconditioning, severe. DISCUSSION AND PLAN: I got an ABG and lactate just to prove that she was not having any severe respi ratory derangement or perfusion issue. We will continue our empiric antibiotics. The white blood ce ll count is gently trended in the right direction and would love to see that trend continue. Pulmona ry will continue to follow until she more definitively turns the corner.
[2018-05-09] MEDS: Atorvastatin Calcium 10 MG TAB PO SCH (20:37)
[2018-05-10] MEDS: traMADol HCl 50 MG TAB PO SCH ×4 (03:23→22:29)
[2018-05-10] MEDS: Acetaminophen 500 MG TAB PO SCH ×4 (03:23→20:47)
[2018-05-10] MEDS: hydrALAZINE 20 MG/ML VIAL SLOW IVP PRN (04:43)
[2018-05-10] MEDS: Piperacillin/Tazobactam 3.375 GM in Sodium Chloride 0.9% 100 ML IVPB SCH ×3 (05:04→18:20)
[2018-05-10] MEDS: Zinc Sulfate 220 MG CAP PO SCH (09:45)
[2018-05-10] MEDS: DULoxetine 60 MG CAP PO SCH (09:45)
[2018-05-10] MEDS: Polyethylene Glycol 3350 17 GM Packet PO SCH (09:45)
[2018-05-10] MEDS: Multivitamin W/ Minerals 1 TAB PO SCH (09:45)
[2018-05-10] MEDS: Senokot 8.6 MG TAB PO SCH ×2 (09:45→20:47)
[2018-05-10] MEDS: TROSPIUM 20 MG TABLET PO SCH (09:45)
[2018-05-10] MEDS: Furosemide 20 MG/2 ML VIAL SLOW IVP SCH (09:45)
[2018-05-10] MEDS: Micafungin 100 MG in Sodium Chloride 0.9% 100 ML IVPB SCH (09:45)
[2018-05-10] MEDS: Famotidine 20 MG TAB PO SCH (09:45)
[2018-05-10] MEDS: Enoxaparin Sodium 40 MG/0.4 ML SYRINGE SC SCH (09:45)
[2018-05-10] MEDS: Aspirin 325 mg Enteric Coated Tablet PO SCH (09:45)
[2018-05-10 10:13] LABS: Hemoglobin 10.8 g/dL (12.0-16.0); Mean Corpuscular HGB CONC 33.8 g/dL (32.0-36.0); Mean Corpuscular Hemoglobin 29.6 pg (27.0-31.0); Mean Corpuscular Volume 87.6 fL (78.0-98.0); Mean Platelet Volume 7.3 fL (7.4-10.4); Platelet Count 480 thou/uL (130-400); RBC Distribution Width 12.9 % (11.5-14.5); Red Blood Cell (RBC) Count 3.65 mill/uL (4.20-5.40); White Blood Cell (WBC) Count 19.6 thou/uL (4.8-10.8)
[2018-05-10 10:29] LABS: Band 3 % (5-11); Lymphocytes 23 % (21-51); MDiff Complete? YES; Monocytes 4 % (0-10); Neutrophil 70 % (42-75); PLT Morphology Comment Appears Increased; Polychromasia SLIGHT = 2-3 cells (100X) (0-2/hpf)
[2018-05-10 11:33] LABS: Magnesium 2.3 mg/dL (1.6-2.6)
[2018-05-10] MEDS: D5W-AA 4.25% with LYTES 1,000 ML IV SCH (12:39)
--- NOTE | 2018-05-10 13:20 | PDOC.PN ---
- Subjective Encounter Start Date: 05/10/18 Encounter Start Time: 13:18 Subjective: smore alert, apprpriate - Objective Resuscitation Status: Resuscitation Status FULL:Full Resuscitation MAR Reviewed: Yes Vital Signs & Weight: Vital Signs (12 hours) Temp Pulse Resp BP BP Pulse Ox 05/10/18 11:11 98.1 F 89 20 126/81 94 L 05/10/18 08:00 97.8 F 94 20 05/10/18 07:28 97.8 F 94 20 148/82 H 92 L 05/10/18 04:43 80 181/95 H 05/10/18 04:24 97.8 F 80 16 181/95 H 93 L Weight Admit Weight 131 lb Weight 131 lb Most Recent Monitor Data Heart Rate from ECG 113 NIBP 136/71 NIBP BP-Mean 117 Respiration from ECG 20 SpO2 94 I&O: 05/09/18 05/10/18 05/11/18 06:59 06:59 06:59 Intake Total 700 1900 Output Total 75 1000 Balance 625 900 Result Diagrams: 05/10/18 09:49 05/09/18 07:35 Phys Exam - Physical Examination Constitutional: NAD NG in place Neck: no JVD Respiratory: clear to auscultation bilateral Cardiovascular: RRR, no significant murmur distended, tympanitic, decreased BS Musculoskeletal: no edema Dx/Plan (1) Large bowel obstruction Code(s): K56.609 - UNSP INTESTNL OBST, UNSP TO PARTIAL VERSUS COMPLETE OBST Status: Acute Comment: resolved after surgery, pathology report diverticulitis. Now has mild distention. KUB performed. Looks like there may be some constipation. Neostigmine ordered. Has some gas passage. Small amount of liquid stool in bag. DW Penelope. Will continue the same for now. Has mild abdominal distention, but slightly better today than yesterday. (2) Leukocytosis Code(s): D72.829 - ELEVATED WHITE BLOOD CELL COUNT, UNSPECIFIED Status: Acute Comment: Unclear etiology. Some evidence of UTI, but poor specimen. On Zosyn. WBC higher today. Need to monitor. No specific souce of concern identified. (3) S/P laparotomy Status: Acute Comment: s/p sigmoidectomy and colostomy (4) Dyslipidemia Code(s): E78.5 - HYPERLIPIDEMIA, UNSPECIFIED Status: Chronic (5) Hypertension Code(s): I10 - ESSENTIAL (PRIMARY) HYPERTENSION Status: Chronic Qualifiers: Hypertension type: essential hypertension Qualified Code(s): I10 - Essential (primary) hypertension Comment: On increased dose of Toprol. BP still a little high, but tolerable. (6) Atrial fibrillation with RVR Code(s): I48.91 - UNSPECIFIED ATRIAL FIBRILLATION Status: Resolved Comment: convereted to NSR. On beta keila. Controlled. (7) Ileus following gastrointestinal surgery Code(s): K91.30 - POSTPROC INTESTINAL OBST, UNSP TO PARTIAL VERSUS COMPLETE Status: Acute - Plan ostomy being irrigated, min BM -: po meds being given per PEG -: discuss with surgery * .
--- NOTE | 2018-05-10 15:32 | PRG ---
DATE OF SERVICE: 05/10/2018 SERVICE: Pulmonary Medicine. INTERVAL HISTORY: The patient is doing a little better from a mentation standpoint. She is awake an d sitting in a chair today. She continues to have abdominal pain and distention. NG tube is in plac e. In addition to that, she is taking some p.o. There has not been any significant improvement or d ecline in function. Nursing reports no overnight events. PHYSICAL EXAMINATION: VITAL SIGNS: Afebrile, pulse 89, blood pressure 126/81, respirations 20, saturation 94% on room air. GENERAL: The patient is awake, alert, no apparent distress. LUNGS: Excellent air entry. There is no prolonged expiratory phase or wheezing present. HEART: Normal rate, regular. ABDOMEN: Distended. Bowel sounds are active. There is no rebound or guarding present. She is diff usely tender. MUSCULOSKELETAL: No cyanosis or clubbing. There is no pitting in the bilateral lower extremities. NEUROLOGIC: Grossly nonfocal. GENITOURINARY: No Terry catheter. LABORATORY DATA: WBC 19.6, hemoglobin 10.8, platelets 480,000 and up trending. Band count remains l ow. Creatinine 1.01 and up trending. Basic metabolic profile is otherwise unremarkable. Phosphorus 2.0 and magnesium 2.3. ASSESSMENT: 1. Severe sepsis. 2. Metabolic encephalopathy. 3. Diverticulitis, status post partial colectomy with Armani formation, postop day 10. 4. Deconditioning, severe. 5. Delirium. DISCUSSION AND PLAN: The patient is doing fine from a respiratory perspective at present. That sharlene lam said, the increasing abdominal distention is increasing her work of breathing ever so slightly. We will keep an eye on that. I will continue mobilization efforts and empiric antibiotics. Hopefully, her ostomy output will start to berry picker. I will repeat laboratories tomorrow morning including the phosphorus, which will be replaced today.
--- NOTE | 2018-05-10 17:41 | PRG ---
DATE OF SERVICE: 05/10/2018 SUBJECTIVE: Ms. Lerner is awake and alert this morning. She is very fatigued. She denies any abdomi nal pain. She is having some dysphagia. Her appetite is quite poor. She denies any nausea. OBJECTIVE: VITAL SIGNS: Today includes blood pressure 126/81, pulse 89, respirations 20, temperature is 98.1 de grees Fahrenheit, oxygen saturation 94% on room air. HEENT: Reveals normocephalic and atraumatic. HEART: Reveals regular rate and rhythm. No murmurs or gallops auscultated. LUNGS: Clear to auscultation bilaterally. Her breathing is regular and unlabored. ABDOMEN: Soft and distended. She has no tenderness to palpation. Incision is otherwise intact, oliverio an, and dry. Colostomy is viable with some semi-formed stool, minimum gas today. LABORATORY DATA: Today includes a CBC with 19,600 white blood cells, hemoglobin and hematocrit 10.8 and 31.9 respectively. Platelet count is 480,000. Differential counts are as follows: 70% segmented neutrophils, 3 bands, 23 lymphocytes, and 4 monocy jona. IMPRESSION: 1. Postoperative day #10, status post Armani's procedure for acute large bowel obstruction. 2. Fecal stasis. 3. Acute metabolic encephalopathy, resolving. PLAN: 1. Continue bowel prep and broad-spectrum antibiotic therapy. Increase activity per physical and oc cupational therapy and monitor the patient for resolution of the fecal stasis. 2. We will start peripheral nutritional supplementation until adequate bowel function has returned a nd the patient better tolerates oral intake. Above findings and plan discussed with the patient and her at bedside. They indicate underst anding of information given. I have answered their questions.
[2018-05-10] MEDS: Atorvastatin Calcium 10 MG TAB PO SCH (20:47)
[2018-05-11] MEDS: Piperacillin/Tazobactam 3.375 GM in Sodium Chloride 0.9% 100 ML IVPB SCH ×5 (00:14→23:44)
[2018-05-11] MEDS: D5W-AA 4.25% with LYTES 1,000 ML IV SCH ×2 (01:38→17:06)
[2018-05-11] MEDS: traMADol HCl 50 MG TAB PO SCH ×4 (03:54→20:03)
[2018-05-11] MEDS: Acetaminophen 500 MG TAB PO SCH ×4 (03:54→20:02)
[2018-05-11 05:39] LABS: Anion Gap 10 mmol/L (10-20); BUN (Urea Nitrogen) 34 mg/dL (9.8-20.1); Calc. Creatinine Clearance 55 mL/min (70-130); Calcium 8.3 mg/dL (7.8-10.44); Carbon Dioxide 31 mmol/L (23-31); Chloride 96 mmol/L (98-107); Estimated GFR-MDRD 72; Glucose 116 mg/dL (83-110); Magnesium 2.3 mg/dL (1.6-2.6); Sodium 134 mmol/L (136-145)
[2018-05-11 05:42] LABS: Phosphorus 1.7 mg/dL (2.3-4.7); Potassium 2.9 mmol/L (3.5-5.1)
[2018-05-11 06:08] LABS: Band 2 % (5-11); Hemoglobin 9.8 g/dL (12.0-16.0); Hypochromia SLIGHT = 6-15 cells (100X) (0-5/hpf); Lymphocytes 34 % (21-51); MDiff Complete? YES; Mean Corpuscular Hemoglobin 28.4 pg (27.0-31.0); Mean Corpuscular Volume 88.9 fL (78.0-98.0); Mean Platelet Volume 7.8 fL (7.4-10.4); Monocytes 3 % (0-10); Neutrophil 61 % (42-75); PLT Morphology Comment Appears Increased; Platelet Count 450 thou/uL (130-400); Polychromasia SLIGHT = 2-3 cells (100X) (0-2/hpf); Red Blood Cell (RBC) Count 3.43 mill/uL (4.20-5.40); White Blood Cell (WBC) Count 22.7 thou/uL (4.8-10.8)
[2018-05-11] MEDS ORDERED: Potassium Phosphate 9 MMOL in Sodium Chloride 0.9% 100 ML IVPB SCH (07:00)
[2018-05-11] MEDS ORDERED: Potassium Chloride 40 MEQ in Sodium Chloride 0.9% 250 ML 250 ML IVPB SCH (07:00)
--- NOTE | 2018-05-11 09:24 | PDOC.PN ---
- Subjective Encounter Start Date: 05/11/18 Encounter Start Time: 09:23 Subjective: somewhat improved, still no significant ostomy output - Objective Resuscitation Status: Resuscitation Status FULL:Full Resuscitation Vital Signs & Weight: Vital Signs (12 hours) Temp Pulse Resp BP Pulse Ox 05/11/18 07:35 97.8 F 76 20 168/94 H 93 L 05/11/18 04:00 98.2 F 71 16 173/99 H 96 05/11/18 00:00 91 L 05/10/18 23:46 97.9 F 72 16 170/93 H 92 L Weight Admit Weight 131 lb Weight 131 lb Most Recent Monitor Data Heart Rate from ECG 113 NIBP 136/71 NIBP BP-Mean 117 Respiration from ECG 20 SpO2 94 I&O: 05/10/18 05/11/18 05/12/18 06:59 06:59 06:59 Intake Total 1900 3940 Output Total 1000 550 Balance 900 3390 Result Diagrams: 05/11/18 05:15 05/11/18 05:15 Phys Exam - Physical Examination Neck: no JVD Respiratory: clear to auscultation bilateral Cardiovascular: RRR, no significant murmur distended, tympanitic, faint BS Musculoskeletal: no edema Dx/Plan (1) Large bowel obstruction Code(s): K56.609 - UNSP INTESTNL OBST, UNSP TO PARTIAL VERSUS COMPLETE OBST Status: Acute Comment: resolved after surgery, pathology report diverticulitis. Now has mild distention. KUB performed. Looks like there may be some constipation. Neostigmine ordered. Has some gas passage. Small amount of liquid stool in bag. DW Penelope. Will continue the same for now. Has mild abdominal distention, but slightly better today than yesterday. (2) Leukocytosis Code(s): D72.829 - ELEVATED WHITE BLOOD CELL COUNT, UNSPECIFIED Status: Acute Comment: Unclear etiology. Some evidence of UTI, but poor specimen. On Zosyn. WBC higher today. Need to monitor. No specific souce of concern identified. (3) S/P laparotomy Status: Acute Comment: s/p sigmoidectomy and colostomy (4) Dyslipidemia Code(s): E78.5 - HYPERLIPIDEMIA, UNSPECIFIED Status: Chronic (5) Hypertension Code(s): I10 - ESSENTIAL (PRIMARY) HYPERTENSION Status: Chronic Qualifiers: Hypertension type: essential hypertension Qualified Code(s): I10 - Essential (primary) hypertension Comment: On increased dose of Toprol. BP still a little high, but tolerable. (6) Atrial fibrillation with RVR Code(s): I48.91 - UNSPECIFIED ATRIAL FIBRILLATION Status: Resolved Comment: convereted to NSR. On beta keila. Controlled. (7) Ileus following gastrointestinal surgery Code(s): K91.30 - POSTPROC INTESTINAL OBST, UNSP TO PARTIAL VERSUS COMPLETE Status: Acute - Plan no real change, WBC still high -: cont iv antibx, await surgery recs * .
[2018-05-11] MEDS: Mineral Oil PER 1 ML PO SCH (09:55)
[2018-05-11] MEDS: Zinc Sulfate 220 MG CAP PO SCH (09:56)
[2018-05-11] MEDS: Furosemide 20 MG/2 ML VIAL SLOW IVP SCH (09:56)
[2018-05-11] MEDS: Aspirin 325 mg Enteric Coated Tablet PO SCH (09:56)
[2018-05-11] MEDS: Famotidine 20 MG TAB PO SCH (09:57)
[2018-05-11] MEDS: Multivitamin W/ Minerals 1 TAB PO SCH (09:57)
[2018-05-11] MEDS: Enoxaparin Sodium 40 MG/0.4 ML SYRINGE SC SCH (09:57)
[2018-05-11] MEDS: Senokot 8.6 MG TAB PO SCH ×2 (09:57→20:02)
[2018-05-11] MEDS: TROSPIUM 20 MG TABLET PO SCH (09:57)
[2018-05-11] MEDS: Polyethylene Glycol 3350 17 GM Packet PO SCH (09:57)
[2018-05-11] MEDS: Micafungin 100 MG in Sodium Chloride 0.9% 100 ML IVPB SCH (09:57)
[2018-05-11] MEDS: DULoxetine 60 MG CAP PO SCH (09:57)
[2018-05-11] MEDS ORDERED: Furosemide 40 MG/4 ML VIAL SLOW IVP SCH (16:45)
--- NOTE | 2018-05-11 17:24 | PRG ---
DATE OF SERVICE: 05/11/2018 SERVICE: Pulmonary Medicine. INTERVAL HISTORY: The patient is doing fine from a respiratory standpoint. She is not having any co ugh or fevers. There were no overnight events otherwise. PHYSICAL EXAMINATION: VITAL SIGNS: Afebrile, pulse 90, blood pressure 164/84, respirations 24, saturation 95% on room air. GENERAL: The patient is awake and alert, in no apparent distress. LUNGS: Decent air entry. Dependent crackles are starting to show up. No prolonged expiratory phase , wheezing or rhonchi are appreciated. HEART: Normal rate, regular. ABDOMEN: Soft. It is distended. Bowel sounds are present. No rebound or guarding is appreciated. She is diffusely tender. MUSCULOSKELETAL: No cyanosis or clubbing. There is diffuse 2-3+ edema throughout. This actually sl owly getting worse. NEUROLOGIC: Grossly nonfocal. LABORATORY DATA: WBC increasing to 22.7, hemoglobin 9.8, platelets 450,000. Potassium 2.9. Basic m etabolic profile is otherwise unremarkable. Phosphorus 1.7. ASSESSMENT: 1. Severe sepsis. 2. Metabolic encephalopathy. 3. Diverticulitis, status post partial colectomy with Armani formation, postop day #11. 4. Deconditioning, severe. 5. Delirium. 6. Anasarca. DISCUSSION AND PLAN: Her white blood cell count may very well be coming from the patient's volume ov erload state. I was provided with a dose of Lasix today and tomorrow in a daily dose until she retur ns to euvolemia. We will watch her potassium, magnesium, and phosphorus fairly closely and replace a s needed. Pulmonary Critical Care will continue to follow along.
[2018-05-11] MEDS: Atorvastatin Calcium 10 MG TAB PO SCH (20:02)
[2018-05-12] MEDS: hydrALAZINE 20 MG/ML VIAL SLOW IVP PRN
[2018-05-12] MEDS: traMADol HCl 50 MG TAB PO SCH ×4 (03:57→22:20)
[2018-05-12] MEDS: Acetaminophen 500 MG TAB PO SCH ×4 (03:57→22:20)
[2018-05-12] MEDS: Piperacillin/Tazobactam 3.375 GM in Sodium Chloride 0.9% 100 ML IVPB SCH ×4 (05:06→23:56)
[2018-05-12] MEDS: Furosemide 40 MG/4 ML VIAL SLOW IVP SCH ×2 (05:07→14:56)
[2018-05-12] MEDS: D5W-AA 4.25% with LYTES 1,000 ML IV SCH ×2 (05:14→18:44)
[2018-05-12 05:36] LABS: Anion Gap 10 mmol/L (10-20); BUN (Urea Nitrogen) 23 mg/dL (9.8-20.1); Calc. Creatinine Clearance 60 mL/min (70-130); Calcium 8.4 mg/dL (7.8-10.44); Carbon Dioxide 26 mmol/L (23-31); Chloride 101 mmol/L (98-107); Estimated GFR-MDRD 81; Glucose 103 mg/dL (83-110); Magnesium 1.9 mg/dL (1.6-2.6); Sodium 133 mmol/L (136-145)
[2018-05-12 05:47] LABS: Phosphorus 1.4 mg/dL (2.3-4.7)
[2018-05-12 06:22] LABS: Band 3 % (5-11); Eosinophils 1 % (0-10); Hemoglobin 10.2 g/dL (12.0-16.0); Lymphocytes 40 % (21-51); MDiff Complete? YES; Mean Corpuscular HGB CONC 32.7 g/dL (32.0-36.0); Mean Corpuscular Hemoglobin 28.8 pg (27.0-31.0); Mean Platelet Volume 7.8 fL (7.4-10.4); Monocytes 7 % (0-10); Neutrophil 49 % (42-75); PLT Morphology Comment Appears Increased; Platelet Count 472 thou/uL (130-400); RBC Distribution Width 13.1 % (11.5-14.5); Red Blood Cell (RBC) Count 3.55 mill/uL (4.20-5.40); White Blood Cell (WBC) Count 23.9 thou/uL (4.8-10.8)
[2018-05-12] MEDS ORDERED: Magnesium Citrate 300 ML BOT PO SCH (09:45)
[2018-05-12] MEDS: Mineral Oil PER 1 ML PO SCH (09:47)
[2018-05-12] MEDS: DULoxetine 60 MG CAP PO SCH (09:49)
[2018-05-12] MEDS: TROSPIUM 20 MG TABLET PO SCH (09:49)
[2018-05-12] MEDS: Aspirin 325 mg Enteric Coated Tablet PO SCH (09:49)
[2018-05-12] MEDS: Multivitamin W/ Minerals 1 TAB PO SCH (09:49)
[2018-05-12] MEDS: Senokot 8.6 MG TAB PO SCH ×2 (09:49→21:48)
[2018-05-12] MEDS: Famotidine 20 MG TAB PO SCH (09:49)
[2018-05-12] MEDS: Zinc Sulfate 220 MG CAP PO SCH (09:49)
[2018-05-12] MEDS: Enoxaparin Sodium 40 MG/0.4 ML SYRINGE SC SCH (09:50)
[2018-05-12] MEDS: Micafungin 100 MG in Sodium Chloride 0.9% 100 ML IVPB SCH (09:50)
[2018-05-12] MEDS: Polyethylene Glycol 3350 17 GM Packet PO SCH (09:50)
[2018-05-12] MEDS ORDERED: MAGNESIUM SULFATE IVPB SCH (13:30)
[2018-05-12] MEDS ORDERED: NS IVPB SCH (13:30)
[2018-05-12] MEDS ORDERED: SODIUM PHOSPHATE IVPB SCH (13:30)
[2018-05-12] MEDS ORDERED: MAGNESIUM IVPB SCH (13:30)
[2018-05-12] MEDS ORDERED: ADMIXTURE FEE IVPB SCH (13:30)
[2018-05-12] MEDS ORDERED: [UNRECOGNIZED DRUG - OTHER] IVPB SCH (13:30)
--- NOTE | 2018-05-12 13:38 | PRG ---
DATE OF SERVICE: 05/12/2018 SUBJECTIVE: Ms. Lerner is an 78-year-old woman who is postoperative day #12 today status post Dutton n's procedure for a sigmoid colon obstruction with significant fecal stasis. The patient had a high colonic tap water enema yesterday done with good results. Today, she is more awake and alert and interactive. She ambulates with minimum difficulty. Colostomy recorded over 500 mL of semi-formed stool overnight. This is in addition to over a liter o f semi-formed stool which was obtained following the tap water enema yesterday. OBJECTIVE: VITAL SIGNS: This morning includes blood pressure 144/84, pulse 88, respiratory rate 24, temperature 97.6 degrees Fahrenheit, oxygen saturation 96% on room air. HEENT: Reveals pupils equal, round, and reactive to light and accommodation. She has no sclerae sasha ma present. She has no jugular venous distention noted. HEART: Reveals regular rate and rhythm, no murmurs or gallops auscultated. CHEST: Lungs clear to auscultation bilaterally. Her breathing is regular and unlabored. ABDOMEN: Soft, definitely less distended from yesterday. Colostomy is viable and functional with a small amount of semi-formed stool present. EXTREMITIES: There are 2+ radial and pedal pulses bilaterally. She has residual 2+ bilateral pittin g ankle edema present. NEUROLOGIC: Reveals no focal deficits present. LABORATORY DATA: Today includes a CBC with 23,900 white blood cells, hemoglobin and hematocrit remai carlos manuel stable at 10.2 and 31.2 respectively. Platelet count is 472,000. Differential counts as follows , 49% segmented neutrophils, 3 bands, 40 lymphocytes, 7 monocytes and 1 eosinophil. Metabolic profil e: Sodium 133, potassium is 4.0, chloride is 101, bicarbonate 26, BUN 23, creatinine 0.70, glucose 1 03, phosphorus is 1.4, magnesium is 1.9. IMPRESSION: 1. Postoperative day #12 status post Armani's procedure. 2. Resolving adynamic ileus with obstipation. 3. Acute hypophosphatemia. 4. Acute hypomagnesemia. PLAN: 1. Correct abnormal electrolytes. 2. The nasogastric tube was discontinued and we will advance to oral intake as tolerated. 3. Continue to encourage increasing activity as the patient tolerates. The patient has been evaluated by PM&R for possible inpatient rehabilitation post-discharge.
--- NOTE | 2018-05-12 17:11 | PRG ---
DATE OF SERVICE: 05/12/2018 SERVICE: Pulmonary Medicine. INTERVAL HISTORY: Today, the patient looks a little less toxic. She denies any current chest pain, nausea, vomiting, fevers or chills. She is breathing comfortably. [facility] Otherwise, there has been no interval change to her condition. Rolanda head reports no overnight events. Ostomy output is increasing. She seems to be tolerating some p.o . PHYSICAL EXAMINATION: VITAL SIGNS: Afebrile, pulse 91, blood pressure 165/94, respirations 20, saturation 96% on room air. GENERAL: The patient is awake, alert, no apparent distress. LUNGS: Excellent air entry. There is no prolonged expiratory phase or wheezing. Dependent crackles are much improved. ABDOMEN: Soft. Distended but less tense. Bowel sounds are positive. There is no rebound or guardi ng present. MUSCULOSKELETAL: No cyanosis or clubbing. There is 2+ edema in the bilateral lower extremities. NEUROLOGIC: Grossly nonfocal. LABORATORY DATA: WBC 23.9, hemoglobin 10.2, platelets 472,000. Potassium 4.0, basic metabolic profi le is otherwise unremarkable/stable. Phosphorus is 1.4, but has already been replaced, magnesium 1.9 . ASSESSMENT: 1. Severe sepsis. 2. Metabolic encephalopathy, resolving. 3. Diverticulitis status post partial colectomy with Armani formation, postoperative day 12. 4. Deconditioning, severe. 5. Delirium, stabilizing. 6. Anasarca. DISCUSSION AND PLAN: The white blood cell count still is high. That being said, she appears much le ss toxic today and clinically she has turned the corner. We will continue to diurese her until she r eturns to euvolemia. An afternoon dose of Lasix should be considered on a daily basis. Pulmonary Cr itical Care will continue to follow along. If the patient remains in house, but hopefully, once her white blood cell count starts to trend downward, she will be a candidate for transition out of the [facility].
[2018-05-12] MEDS: Atorvastatin Calcium 10 MG TAB PO SCH (21:47)
[2018-05-13] MEDS: Acetaminophen 500 MG TAB PO SCH ×2 (04:05→09:17)
[2018-05-13] MEDS: traMADol HCl 50 MG TAB PO SCH ×2 (04:06→09:17)
[2018-05-13] MEDS ORDERED: Furosemide 40 MG/4 ML VIAL SLOW IVP SCH (06:00)
[2018-05-13] MEDS: Piperacillin/Tazobactam 3.375 GM in Sodium Chloride 0.9% 100 ML IVPB SCH (06:26)
[2018-05-13 07:55] LABS: Hemoglobin 10.2 g/dL (12.0-16.0); Mean Corpuscular HGB CONC 34.1 g/dL (32.0-36.0); Mean Corpuscular Volume 87.9 fL (78.0-98.0); Mean Platelet Volume 7.7 fL (7.4-10.4); Platelet Count 468 thou/uL (130-400); RBC Distribution Width 13.1 % (11.5-14.5); White Blood Cell (WBC) Count 20.9 thou/uL (4.8-10.8)
[2018-05-13 08:01] LABS: Anion Gap 14 mmol/L (10-20); BUN (Urea Nitrogen) 21 mg/dL (9.8-20.1); Calc. Creatinine Clearance 51 mL/min (70-130); Calcium 9.2 mg/dL (7.8-10.44); Carbon Dioxide 25 mmol/L (23-31); Chloride 101 mmol/L (98-107); Estimated GFR-MDRD 66; Glucose 95 mg/dL (83-110); Magnesium 2.5 mg/dL (1.6-2.6); Phosphorus 2.6 mg/dL (2.3-4.7); Potassium 3.7 mmol/L (3.5-5.1); Sodium 136 mmol/L (136-145)
[2018-05-13 08:36] LABS: Band 1 % (5-11); Hypochromia SLIGHT = 6-15 cells (100X) (0-5/hpf); Lymphocytes 47 % (21-51); MDiff Complete? YES; Monocytes 5 % (0-10); Neutrophil 47 % (42-75); PLT Morphology Comment Appears Increased; Polychromasia SLIGHT = 2-3 cells (100X) (0-2/hpf)
[2018-05-13] MEDS: Aspirin 325 mg Enteric Coated Tablet PO SCH (09:15)
[2018-05-13] MEDS: DULoxetine 60 MG CAP PO SCH (09:15)
[2018-05-13] MEDS: TROSPIUM 20 MG TABLET PO SCH (09:15)
[2018-05-13] MEDS: Multivitamin W/ Minerals 1 TAB PO SCH (09:15)
[2018-05-13] MEDS: Senokot 8.6 MG TAB PO SCH (09:15)
[2018-05-13] MEDS: Polyethylene Glycol 3350 17 GM Packet PO SCH (09:16)
[2018-05-13] MEDS: Famotidine 20 MG TAB PO SCH (09:16)
[2018-05-13] MEDS: Enoxaparin Sodium 40 MG/0.4 ML SYRINGE SC SCH (09:16)
[2018-05-13] MEDS: Zinc Sulfate 220 MG CAP PO SCH (09:18)
[2018-05-13] MEDS: Micafungin 100 MG in Sodium Chloride 0.9% 100 ML IVPB SCH (09:18)
[2018-05-13] MEDS ORDERED: Potassium Phosphate 20 MMOL in Sodium Chloride 0.9% 250 ML 250 ML IVPB SCH (10:00)
--- NOTE | 2018-05-13 10:20 | PDOC.PN ---
- Subjective Encounter Start Date: 05/12/18 Encounter Start Time: 15:00 Leidy is seen today, alert and oriented. Tolerating oral food. No abdominal pain. - Objective Resuscitation Status: Resuscitation Status FULL:Full Resuscitation MAR Reviewed: Yes Vital Signs & Weight: Vital Signs (12 hours) Temp Pulse Resp BP Pulse Ox 05/13/18 07:02 97.4 F L 82 18 148/72 H 95 05/13/18 04:12 97.8 F 75 16 138/80 95 05/13/18 00:00 98 F 80 16 147/93 H 97 Weight Admit Weight 131 lb Weight 131 lb Most Recent Monitor Data Heart Rate from ECG 113 NIBP 136/71 NIBP BP-Mean 117 Respiration from ECG 20 SpO2 94 I&O: 05/12/18 05/13/18 05/14/18 06:59 06:59 06:59 Intake Total 3125 1020 Output Total 9522 4250 Balance -0973 -4112 Result Diagrams: 05/13/18 07:25 05/13/18 07:25 Radiology Reviewed by me: Yes Phys Exam - Physical Examination HEENT: PERRLA, moist MMs Neck: no nodes, no JVD Respiratory: no wheezing, no rales Cardiovascular: RRR, no significant murmur Gastrointestinal: soft, non-tender, positive bowel sounds Musculoskeletal: no edema, pulses present Neurological: non-focal, normal sensation Lymphatic: no nodes Psychiatric: normal affect, A&O x 3 Dx/Plan (1) Acute diverticulitis Code(s): K57.92 - DVTRCLI OF INTEST, PART UNSP, W/O PERF OR ABSCESS W/O BLEED Status: Acute Comment: With bowel obstruction. S/P surg with diversion. stable, with persistant wbc elevation. (2) Ileus following gastrointestinal surgery Code(s): K91.30 - POSTPROC INTESTINAL OBST, UNSP TO PARTIAL VERSUS COMPLETE Status: Resolved (3) Large bowel obstruction Code(s): K56.609 - UNSP INTESTNL OBST, UNSP TO PARTIAL VERSUS COMPLETE OBST Status: Acute Comment: resolved after surgery, pathology report diverticulitis. passing stool into colostomy. (4) Leukocytosis Code(s): D72.829 - ELEVATED WHITE BLOOD CELL COUNT, UNSPECIFIED Status: Acute Comment: Unclear etiology. Some evidence of UTI, but poor specimen. On Zosyn. WBC higher today. Need to monitor. No specific souce of concern identified. pt remains afebrle, will repeat blood cultures tomorrow and chest xray. (5) S/P laparotomy Status: Acute Comment: s/p sigmoidectomy and colostomy (6) Anxiety and depression Code(s): F41.9 - ANXIETY DISORDER, UNSPECIFIED; F32.9 - MAJOR DEPRESSIVE DISORDER, SINGLE EPISODE, UNSPECIFIED Status: Chronic (7) Hypertension Code(s): I10 - ESSENTIAL (PRIMARY) HYPERTENSION Status: Chronic Qualifiers: Hypertension type: essential hypertension Qualified Code(s): I10 - Essential (primary) hypertension Comment: On increased dose of Toprol. BP still a little high, but tolerable. (8) Atrial fibrillation with RVR Code(s): I48.91 - UNSPECIFIED ATRIAL FIBRILLATION Status: Resolved Comment: convereted to NSR. On beta keila. Controlled. - Plan cont current plan of care, plan discussed w/ family, continue antibiotics, PT/OT , web content & social media manager, respiratory therapy, incentive spirometry, DVT proph w/ lovenox * . Review of Systems - Review of Systems Constitutional: negative: fever, chills, sweats, weakness, malaise, other Eyes: negative: Pain, Vision Change, Conjunctivae Inflammation, Eyelid Inflammation, Redness, Other ENT: negative: Ear Pain, Ear Discharge, Nose Pain, Nose Discharge, Nose Congestion, Mouth Pain, Mouth Swelling, Throat Pain, Throat Swelling, Other Respiratory: negative: Cough, Dry, Shortness of Breath, Hemoptysis, SOB with Excertion, Pleuritic Pain, Sputum, Wheezing Cardiovascular: negative: chest pain, palpitations, orthopnea, paroxysmal nocturnal dyspnea, edema, light headedness, other Gastrointestinal: negative: Nausea, Vomiting, Abdominal Pain, Diarrhea, Constipation, Melena, Hematochezia, Other Genitourinary: negative: Dysuria, Frequency, Incontinence, Hematuria, Retention , Other Musculoskeletal: negative: Neck Pain, Shoulder Pain, Arm Pain, Back Pain, Hand Pain, Leg Pain, Foot Pain, Other - Medications/Allergies Allergies/Adverse Reactions: Allergies Allergy/AdvReac Type Severity Reaction Status Date / Time codeine Allergy Intermediate Hives Verified 01/21/16 18:37 Sulfa (Sulfonamide Allergy Verified 01/21/16 16:08 Antibiotics) Medications: Current Medications Acetaminophen (Tylenol) 1,000 mg PO Q6H [facility] Last Admin: 05/13/18 09:17 Dose: Not Given Al Hydroxide/Mg Hydroxide (Maalox) 15 ml PO Q4H PRN PRN Reason: Heartburn or Indigestion Albuterol/Ipratropium (Duoneb) 3 ml NEB [id number] PRN PRN Reason: SOB &/or Wheezing Artificial Tears (Tears Naturale) 0 drop EA EYE PRN PRN PRN Reason: Dry Eyes Aspirin (Ecotrin) 325 mg PO DAILY [facility] Last Admin: 05/13/18 09:15 Dose: 325 mg Atorvastatin Calcium (Lipitor) 10 mg PO HS [facility] Last Admin: 05/12/18 21:47 Dose: 10 mg Diphenhydramine HCl (Benadryl) 25 mg IVP Q3H PRN PRN Reason: Itching Diphenhydramine HCl (Benadryl) 25 mg PO Q3H PRN PRN Reason: Itching Diphenhydramine HCl (Benadryl) 25 mg IM Q3H PRN PRN Reason: Itching Docusate Sodium (Colace) 100 mg PO BIDPRN [facility] Duloxetine HCl (Cymbalta) 60 mg PO DAILY [facility] Last Admin: 05/13/18 09:15 Dose: 60 mg Enalapril Maleate (Vasotec) 10 mg PO BID [facility] Last Admin: 05/13/18 09:15 Dose: 10 mg Enoxaparin Sodium (Lovenox) 40 mg SC 0900 [facility] Last Admin: 05/13/18 09:16 Dose: 40 mg Famotidine (Pepcid) 20 mg PO DAILY [facility] Last Admin: 05/13/18 09:16 Dose: 20 mg Furosemide (Lasix) 40 mg SLOW IVP 0600 [facility] Last Admin: 05/13/18 06:27 Dose: 40 mg Guaifenesin (Robitussin Sf) 200 mg PO Q4H PRN PRN Reason: Cough Hydralazine HCl (Apresoline) 10 mg SLOW IVP Q4H PRN PRN Reason: Systolic BP > 160 Last Admin: 05/12/18 00:00 Dose: 10 mg Piperacillin Sod/Tazobactam (Sod 3.375 gm/ Sodium Chloride) 100 mls @ 200 mls/ hr IVPB Q6HR [facility] Last Admin: 05/13/18 06:26 Dose: 100 mls Micafungin Sodium 100 mg/ (Sodium Chloride) 100 mls @ 100 mls/hr IVPB 1000 [facility] Last Admin: 05/13/18 09:18 Dose: 100 mls Potassium Phosphate 20 mmol/ (Sodium Chloride) 256.6667 mls @ 64.167 mls/hr IVPB NOW [facility] Stop: 05/13/18 13:59 Ibuprofen (Motrin) 600 mg PO Q8H PRN PRN Reason: Pain Iron/Minerals/Multivitamins (Theragran M) 1 tab PO DAILY [facility] Last Admin: 05/13/18 09:15 Dose: 1 tab Loratadine (Claritin) 10 mg PO DAILYPRN PRN PRN Reason: Sinus Symptoms Magnesium Hydroxide (Milk Of Magnesium) 30 ml PO DAILYPRN PRN PRN Reason: Constipation Metoprolol Succinate (Toprol Xl) 100 mg PO DAILY [facility] Last Admin: 05/13/18 09:15 Dose: 100 mg Mineral Oil (Mineral Oil) 30 ml PO DAILY [facility] Last Admin: 05/12/18 09:47 Dose: 30 ml Mineral Oil/White Petrolatum (Eucerin Cream) 0 gm TOP BIDPRN PRN PRN Reason: Dry Skin Ondansetron HCl (Zofran Odt) 4 mg PO Q6H PRN PRN Reason: Nausea/Vomiting Last Admin: 05/06/18 02:58 Dose: 4 mg Ondansetron HCl (Zofran) 4 mg IVP Q6H PRN PRN Reason: Nausea/Vomiting Last Admin: 05/08/18 13:41 Dose: 4 mg Phenol (Chloraseptic [place] 180 Ml Bot) 1 ml PO BIDPRN PRN PRN Reason: Sore Throat Polyethylene Glycol (Miralax) 17 gm PO DAILY [facility] Last Admin: 05/13/18 09:16 Dose: 17 gm Promethazine HCl (Phenergan) 12.5 mg IM Q4H PRN PRN Reason: Nausea/Vomiting Senna (Senokot) 1 tab PO BID [facility] Last Admin: 05/13/18 09:15 Dose: 1 tab Sodium Chloride (Flush - Normal Saline) 10 ml IVF Q12HR [facility] Last Admin: 05/13/18 09:26 Dose: 10 ml Sodium Chloride (Flush - Normal Saline) 10 ml IVF PRN PRN PRN Reason: Saline Flush Last Admin: 05/09/18 18:08 Dose: 10 ml Sodium Chloride ([place] Nasal [place] 0.65%) 0 ml EA NARE QIDPRN PRN PRN Reason: Nasal Congestion Trospium (Trospium) 20 mg PO DAILY [facility] Last Admin: 05/13/18 09:15 Dose: 20 mg Zinc Sulfate (Zinc Sulfate) 220 mg PO DAILY [facility] Last Admin: 05/13/18 09:18 Dose: 220 mg
[2018-05-13] MEDS ORDERED: Acetaminophen 500 MG TAB PO PRN (11:19)
[2018-05-13 11:30] VITALS: BP 140/77; TEMP 97.9
--- NOTE | 2018-05-13 12:50 | RAD ---
PORTABLE CHEST 1 VIEW: DATE: 05/13/18. TIME: 10:39 a.m. HISTORY: Shortness of breath. FINDINGS: Comparison is made with the exam of 05/06/18. A right-sided subclavian central line remains in place. The heart size is stable. Suboptimal inspir atory effort is redemonstrated. Mild bibasilar atelectatic changes versus infiltrates cannot be excl uded. No pneumothoraces are seen. POS: HAILE
--- NOTE | 2018-05-13 14:08 | DIS ---
DATE OF ADMISSION: 04/30/2018 DATE OF DISCHARGE: 05/13/2018 ADMITTING DIAGNOSIS: Acute large bowel obstruction. DISCHARGE DIAGNOSIS: Acute large bowel obstruction status post Armani's procedure. SECONDARY DIAGNOSES: 1. Uncontrolled hypertension. 2. Intractable nausea and vomiting. 3. Severe dehydration. 4. Chronic constipation. 5. Asymptomatic bacteriuria. 6. Leukocytosis. 7. Urinary tract infection. CONSULTANTS INVOLVED IN THE CARE: 1. Gustavo Thompson M.D. 2. Artem Ansari D.O. HISTORY OF PRESENT ILLNESS AND HOSPITAL COURSE: In brief, this is an 78-year-old white female with n o past medical history. She presented to the ED with abdominal discomfort, which she was noted to bernardo ve inflammatory phlegmon causing obstruction of the large bowel, which was secondary to diverticuliti s. The patient had partial colectomy and a colostomy formation done by General Surgery, Dr. Elan jonas d she was noted to have worsening white count. No source of infection was found except for urinary t ract infection and possible secondary to chronic constipation and causing translocation of the bacter ia. So empirically she was started on Zosyn and the patient showed progressive improvement following the surgery. She was having severe constipation on the CT of the abdomen, which showed a completely impacted stool. Following surgery, she had good laxatives, which caused almost 2 days of stool outp ut was noted during which the patient was also getting neostigmine for bowel stasis. The patient pineda wed significant improvement and she had a PT and OT evaluation and she was suggested to continue for inpatient rehabilitation. During this admission, the patient had multiple procedures. The patient has had initially, 1. Flexible sigmoidoscopy, which showed a solid stool obscuring the view of the rectum and sigmoid c olon with external hemorrhoids and rectal prolapse. 2. The patient had exploratory laparotomy with sigmoidectomy and end colostomy and placement of NG t ube. 3. Sigmoid mass was sent for pathology, which showed no evidence of acute diverticulitis with ulcera tion, rupture and pericolonic inflammation. 4. Echocardiogram was done showing EF of 65%-70%. PHYSICAL EXAMINATION: On the date of discharge, VITAL SIGNS: Blood pressures are 148/72, heart rate is 82, respiration rate is 18, saturating 95%. GENERAL: The patient is moderately built and moderately nourished, does not appear to be in any acut e distress at this time, alert and oriented x3. HEENT: Atraumatic, normocephalic. CARDIOVASCULAR: S1, S2 normal. No murmurs, rubs or gallops. LUNGS: Bilateral air entry was equal. No wheezing, no crackles. ABDOMEN: Soft, nontender. No guarding or rebound tenderness. Bowel sounds normal. MUSCULOSKELETAL: No calf tenderness. No pedal edema. No joint tenderness. No joint swelling. The patient has pedal edema of 2+. HOME MEDICATIONS: 1. Atorvastatin 10 mg p.o. at bedtime. 2. Duloxetine 60 mg p.o. at bedtime. 3. Detrol 4 mg p.o. daily. 4. Aspirin 325 mg p.o. daily. 5. Enalapril 10 mg p.o. b.i.d. 6. 40 mg p.o. daily. 7. Hydrocodone. 8. Metoprolol 100 mg p.o. daily. 9. Polyethylene glycol. 10. Potassium chloride. 11. Lasix 40 mg p.o. daily. 12. Fluconazole 100 mg p.o. daily, continue for 5 more days. DISCHARGE INSTRUCTIONS: 1. Continue activity as tolerated. Advised to follow up with inpatient rehab with the rehab team. General Surgery will follow along. 2. The patient will continue on Lasix for pedal edema for at least a month and closely monitor the r enal functions. The patient is on multiple new blood pressure medications secondary to elevated bloo d pressures during this hospitalization. Possibly may need to be trended down if the blood pressures become stable. 3. Follow up with the primary care physician in 2-3 weeks. I spent 45 minutes with this patient.
--- NOTE | 2018-05-13 14:43 | PRG ---
DATE OF SERVICE: 05/13/2018 SUBJECTIVE: Ms. Lerner is an 78-year-old female. This morning, she says she is doing better. She is less short of breath OBJECTIVE: VITAL SIGNS: Saturations are 100% on room air, respiratory rate 18, temperature 97, pulse 75. She h as got 2+ ankle edema. Blood pressure 140/70. She is less short of breath. CHEST: Chest revealed decreased breath sounds, no wheezing. CARDIAC: Normal S1, S2, no gallops. ABDOMEN: Soft, without mass. LABORATORY DATA: White count 20,000, H and H 10 and 29, platelet count is normal. Lytes are normal. She had a chest x-ray ordered today, which shows small bilateral pleural effusion, elevated hemidia phragm. IMPRESSION: 1. Status post lap. 2. Generalized anasarca. 3. Deconditioning. PLAN: Continue PT, rehabilitation.
[2018-05-14] MEDS ORDERED: Furosemide 40 MG TAB PO SCH (07:30)
[2018-05-14] MEDS ORDERED: Fluconazole 100 MG TAB PO SCH (12:00)
== END 2018-05-13 13:40 | DRG 329 ==
LOC: ERS 16:39 → SURG B 23:12 → CCU 04-30 17:04 → SURG B 05-01 19:31 → IMCU/EMU 05-03 11:32 → 2NO 05-05 16:34 → SURG B 05-07 15:29
PROVIDERS: ADMIT Internal Medicine; ATTEND Internal Medicine
PROC: 0DTN0ZZ Resection of Sigmoid Colon, Open Approach (ICD-10-PCS; principal; 2018-04-30)
PROC: 0D1N0Z4 Bypass Sigmoid Colon to Cutaneous, Open Approach (ICD-10-PCS; 2018-04-30)
PROC: 05H633Z Insertion of Infusion Device into Left Subclavian Vein, Percutaneous Approach (ICD-10-PCS; 2018-04-30)
PROC: 0DHA3UZ Insertion of Feeding Device into Jejunum, Percutaneous Approach (ICD-10-PCS; 2018-04-30)
PROC: 0DJD8ZZ Inspection of Lower Intestinal Tract, Via Natural or Artificial Opening Endoscopic (ICD-10-PCS; 2018-04-30)
DX: K57.92 Diverticulitis of intestine, part unspecified, without perforation or abscess without bleeding (principal); A41.9 Sepsis, unspecified organism; R65.20 Severe sepsis without septic shock; G93.41 Metabolic encephalopathy; K56.600 Partial intestinal obstruction, unspecified as to cause; N39.0 Urinary tract infection, site not specified; K91.30 Postprocedural intestinal obstruction, unspecified as to partial versus complete; I10 Essential (primary) hypertension; E78.5 Hyperlipidemia, unspecified; M81.0 Age-related osteoporosis without current pathological fracture; Z88.2 Allergy status to sulfonamides; I48.91 Unspecified atrial fibrillation; F41.9 Anxiety disorder, unspecified; Z86.010 Personal history of colon polyps; E86.0 Dehydration; K64.4 Residual hemorrhoidal skin tags; K62.3 Rectal prolapse; K59.09 Other constipation; D72.829 Elevated white blood cell count, unspecified
CPT/HCPCS: 36415; 36416; 71045; 74018; 74177; 80048; 80053; 80076; 81001; 81003; 81015; 82140; 82378; 82553; 82805; 83605; 83690; 83735; 83880; 84100; 84443; 84484; 85007; 85025; 85027; 87040; 87086; 87324; 87449; 88307; 93005; 93010; 93306; 96360; 99213; A4216; G0463; G8978-GP-CK; G8978-GP-CL; G8979-GP-CI; G8979-GP-CJ; G8987-GO-CK; G8988-GO-CI; G8996-GN-CK; G8997-GN-CI; J0282; J0360; J1335; J1450; J1642; J1650; J1885; J1940; J2185; J2248; J2250; J2405; J2543; J2704; J2710; J3010; J3475; J3480; J7050; J7070; P9045; Q0162; S0028

== ENCOUNTER 2018-10-16 07:19 | Outpatient (CLI) | payer MEDICARE, OTHER ==
[2018-10-16 11:51] LABS: Anion Gap 11 mmol/L (10-20); BUN (Urea Nitrogen) 22 mg/dL (9.8-20.1); Calc. Creatinine Clearance 0 mL/min (70-130); Calcium 10.5 mg/dL (7.8-10.44); Carbon Dioxide 24 mmol/L (23-31); Chloride 109 mmol/L (98-107); Estimated GFR-MDRD 54; Glucose 86 mg/dL (83-110); Potassium 4.5 mmol/L (3.5-5.1); Sodium 139 mmol/L (136-145)
[2018-10-16 12:46] LABS: Band 3 % (5-11); Eosinophils 3 % (0-10); Hemoglobin 12.3 g/dL (12.0-16.0); Lymphocytes 43 % (21-51); MDiff Complete? YES; Mean Corpuscular HGB CONC 31.6 g/dL (32.0-36.0); Mean Corpuscular Hemoglobin 25.9 pg (27.0-31.0); Mean Platelet Volume 9.8 fL (7.4-10.4); Monocytes 2 % (0-10); Neutrophil 37 % (42-75); Platelet Count 195 thou/uL (130-400); RBC Distribution Width 16.6 % (11.5-14.5); RBC Morphology Normal; Reactive Lymphocytes 12 % (0-10); Red Blood Cell (RBC) Count 4.73 mill/uL (4.20-5.40); White Blood Cell (WBC) Count 10.7 thou/uL (4.8-10.8)
[2018-10-16 14:11] LABS: Hemoglobin A1c 5.8 % (4.0-6.0)
--- NOTE | 2018-10-16 20:22 | EKG ---
Test Reason : Blood Pressure : / mmHG Vent. Rate : 063 BPM Atrial Rate : 063 BPM P-R Int : 178 ms QRS Dur : 088 ms QT Int : 420 ms P-R-T Axes : 020 -10 034 degrees QTc Int : 429 ms Sinus rhythm with Fusion complexes Low voltage QRS Poor anterior R wave progression Abnormal ECG When compared with ECG of 03-MAY-2018 09:56, Sinus rhythm has replaced Atrial fibrillation Vent. rate has decreased BY 94 BPM Criteria for Inferior infarct are no longer Present Nonspecific T wave abnormality, improved in Inferior leads Nonspecific T wave abnormality no longer evident in Lateral leads Confirmed by WALE DEWITT, DR. Allen ([id number]) on 10/16/2018 8:22:00 PM Referred By: VERENICE Confirmed By:DR. Tiffany ECHEVARRIA MD
== END 2018-10-16 07:20 | disposition home or self-care (01) ==
LOC: LABBT 07:19
PROVIDERS: ATTEND Surgery
DX: Z01.818 Encounter for other preprocedural examination (principal); K56.609 Unspecified intestinal obstruction, unspecified as to partial versus complete obstruction; K63.9 Disease of intestine, unspecified
CPT/HCPCS: 80048; 83036; 85025; 93005; 93010

== ENCOUNTER 2018-10-16 09:30 | Inpatient (IN) | payer MEDICARE, OTHER ==
[2018-10-24] MEDS ORDERED: Ketorolac Tromethamine 30 MG/ML VIAL ONE (08:06)
[2018-10-24] MEDS ORDERED: cefOXitin Sodium/Dextrose,Iso 1 GM in Premix Bag 1 BAG IVPB SCH (08:15)
[2018-10-24] MEDS ORDERED: Fentanyl 100 MCG/2 ML VIAL ONE ×5 (08:34→15:42)
[2018-10-24] MEDS ORDERED: Dexamethasone 4 mg/ml Vial ONE (08:34)
[2018-10-24] MEDS ORDERED: Midazolam HCl 2 mg/2 ml Vial ONE (08:34)
[2018-10-24] MEDS ORDERED: cefOXitin Sodium/Dextrose,Iso 2 GM in Premix Bag 1 BAG IVPB SCH (08:45)
[2018-10-24] MEDS ORDERED: Famotidine/PF 20 mg/2ml Vial ONE (09:12)
[2018-10-24] MEDS ORDERED: ceFOXitin 1 GM VIAL ONE (11:28)
[2018-10-24] MEDS ORDERED: Ondansetron HCl/PF 4 MG/2 ML Vial IVP PRN (12:34)
[2018-10-24] MEDS ORDERED: SUGAMMADEX SODIUM 200 MG/2 ML VIAL ONE (13:02)
[2018-10-24] MEDS ORDERED: Dextrose 50% Abboject 50 ML SYRINGE SLOW IVP PRN (13:54)
[2018-10-24] MEDS ORDERED: Dextrose 5% in Water 1,000 ML IV PRN (13:54)
[2018-10-24] MEDS ORDERED: Ondansetron PF 4 MG/2 ML Vial IVP PRN (13:59)
[2018-10-24] MEDS ORDERED: diphenhydrAMINE 50 MG/ML VIAL IM PRN (13:59)
[2018-10-24] MEDS ORDERED: Promethazine HCl 25 MG/ML VIAL IM PRN (13:59)
[2018-10-24] MEDS ORDERED: Ketorolac Tromethamine 30 MG/ML VIAL IVP PRN (13:59)
[2018-10-24] MEDS ORDERED: Naloxone HCl 0.4 mg/ml Vial IV PRN (13:59)
[2018-10-24] MEDS ORDERED: diphenhydrAMINE 25 MG CAP PO PRN (13:59)
[2018-10-24] MEDS ORDERED: HYDROmorphone 10 mg/100 ml CADD IVPB PRN ×2 (13:59→16:10)
[2018-10-24] MEDS ORDERED: diphenhydrAMINE 50 MG/ML VIAL IVP PRN (13:59)
[2018-10-24] MEDS ORDERED: Communication Order-Pharmacy FS SCH (14:00)
--- NOTE | 2018-10-24 15:19 | RAD ---
SINGLE VIEW CHEST: HISTORY: Status post colostomy closure. Shortness of breath. COMPARISON: 05/13/2018 FINDINGS: A single view of the chest shows a normal sized cardiomediastinal silhouette. An NG tube is seen in the stomach. A Dobhoff tube is seen with its tip in the stomach. This extends to the region of the pylorus but curls back on itself within the stomach. There is no evidence of consolidation, mass, or pleural effusion. IMPRESSION: No evidence of acute cardiopulmonary disease. POS: HAILE
--- NOTE | 2018-10-24 15:22 | RAD ---
KUB: HISTORY: Status post colostomy closure. Dobhoff tube placement. COMPARISON: 05/09/2018 FINDINGS: A single view of the abdomen shows a nonspecific, nonobstructed bowel gas pattern. An NG tube is see n in the stomach. A Dobhoff tube is seen with its tip in the stomach. This courses into the region of the pylorus but curves back on itself with its tip in the stomach. A surgical drain is seen in th e pelvis. There are healed pelvic fractures. IMPRESSION: Dobhoff tube located in the stomach. POS: HAILE
[2018-10-24] MEDS ORDERED: Bupivacaine HCl 0.5%/Epinephrine 1:200,000/PF 30 ml Vial ONE (16:17)
[2018-10-24] MEDS ORDERED: Ondansetron PF 4 MG/2 ML Vial ONE (16:48)
[2018-10-24] MEDS ORDERED: PHENYLEPHRINE-NS 100 MCG/ML 10 ML SYRINGE ONE ×2 (16:48)
[2018-10-24] MEDS ORDERED: PROPOFOL 200 MG/20 ML VIAL ONE (16:48)
[2018-10-24] MEDS ORDERED: Dexamethasone 20 MG/5 ML VIAL ONE (16:48)
[2018-10-24] MEDS ORDERED: Lidocaine 1% PF 5 ML VIAL ONE (16:48)
[2018-10-24] MEDS ORDERED: Rocuronium Bromide 10 MG/ML (10ML VIAL) ONE (16:48)
[2018-10-24] MEDS: Acetaminophen 1,000 MG in Premix Bag 1 BAG IVPB SCH ×2 (17:58→20:53)
--- NOTE | 2018-10-24 18:04 | OP ---
DATE OF PROCEDURE: 10/24/2018 PREOPERATIVE DIAGNOSES: Status post sigmoidectomy with colostomy. POSTOPERATIVE DIAGNOSES: 1. Status post sigmoidectomy with colostomy. 2. Extensive intraabdominal adhesions. OPERATIONS PERFORMED: 1. Exploratory laparotomy. 2. Extensive adhesiolysis. 3. Segmental small bowel resection with primary anastomosis. 4. Colostomy takedown with colorectal anastomosis. 5. Placement of feeding nasojejunal tube. ANESTHESIA: General endotracheal. ESTIMATED BLOOD LOSS: 200 mL. FLUIDS GIVEN: 1700 mL crystalloids. URINARY OUTPUT: 250 mL. COUNTS: Sponge and instrument counts were verified as correct x2. COMPLICATIONS: None apparent at the time of operation. INDICATIONS FOR OPERATION: This is an 78-year-old woman, who previously underwent exploratory laparotomy with sigmoidectomy with end colostomy following a perforated sigmoid colon diverticulitis with large bowel obstruction. The patient has done well, seen in the outpatient clinic, and planned colostomy takedown today. Findings are consistent with extensive intraabdominal adhesions causing multiple partial small bowel obstructions. DESCRIPTION OF PROCEDURE: Informed consent was obtained from the patient, who was brought to the operating room and placed in supine position. Following general anesthesia, the patient was placed in the lithotomy position after a Terry catheter was inserted and placed to bedside drain. Nasogastric tube inserted and placed to wall suction. Abdomen was sterilely prepped and draped in usual fashion. Midline incision was made using #10 scalpel. Incision was carried through subcutaneous tissues and maintained hemostasis using thermal cautery. Fascia was incised midline exposing the peritoneum beneath, which was grasped x2 with hemostats. Neck cavity was sharply entered using Metzenbaum scissors. Immediately peritoneal cavity was entered. Extensive intraabdominal adhesions were encountered involving almost the entire loop of small bowel and anterior abdominal wall. Extensive, but meticulous adhesiolysis ensued using Metzenbaum scissors. Once the entire small bowel was freed, the bowel was run from ligament of Treitz to terminal ileum. Segment of small bowel, which was completely encased in the adhesive mass appeared to be nonviable. Decision was made at that juncture to perform a segmental small bowel resection of this short segment. To accomplish this, rent was created in the mesentery proximal and distal to the involved segment, through which free ends of JURGEN stapler was introduced and the bowel was divided. The mesentery of the specimen was serially divided between clamps and ligated with a free tie of 2-0 silk. The specimen was passed off the operative field. Staple end of the small bowel loops was approximated in a [id number] fashion using interrupted sutures of 3-0 silk. Enterotomies were made at both apices, through which free ends of JURGEN stapler was introduced and functional end-to-end, but anatomic [id number] enteroenterostomy was perfected. Resultant mesenteric defect was closed using a running stitch of 2-0 Vicryl. Bowel was again inspected from ligament of Treitz to the terminal ileum, finding no other pathology. At this juncture, we were able to examine the colon from the cecum through the ascending, transverse, and descending colon to the level of the colostomy exit. The Armani pouch was inspected. We decided to excise the staple end of the Armani pouch to use a fresh loop for anastomosis. To accomplish this, the staple end of the Armani pouch was excised using a contour stapling device. At this juncture, we applied a JURGEN stapler. The exit site of the colostomy within the abdominal cavity, dividing the descending colon there. The pursestring was applied at the staple end of the descending colon. The staple line was excised and the lumen of this bowel was serially dilated to a 29 Sizer. At this juncture, a 29 EEA stapler was brought into the operative field. The mushroom end of the stapler was embedded in the distal descending colon and secured with a pursestring suture. The mass extended and proceeded below dilating the rectal pouch with the anvil sizers and finally, 29 EEA stapler was introduced under direct vision, guided by myself within the pelvis. The anvil was deployed under direct vision and connected to the mushroom end of the stapler. This was closed under direct vision and the stapler was fired. Functional end-to-end colorectal anastomosis was accomplished. The stapler was removed in the usual fashion. I applied a clamp proximal to the anastomosis and tested this on the pull of saline as my field assistant instilled some air using an anoscope. The anastomosis was judged to be air tight. The clamp was removed and the abdominal cavity was then copiously irrigated clear with saline solution after we changed our gown and gloves. A #19 Bradley drain was introduced into the pelvis and allowed to exit the abdominal cavity through a separate stab incision. The drain was secured to anterior abdominal wall using 2-0 silk suture. I placed 3 pieces of Seprafilm in between bowel loops and in the deep pelvis. Small bowel have been at a normal anatomic location. Omentum is drawn over the rest of the viscera at this time. At this juncture, feeding nasojejunal tube was inserted by Anesthesia. The tip of which was palpated by myself within the gastric lumen. I manipulated the tip of this catheter into proximal small bowel without resistance. Finding no other pathology, exploration was terminated. All sponges and instruments were removed and accounted. Good hemostasis was noted in place. The previous colostomy exit site was closed within the abdominal cavity using interrupted sutures of 0 Vicryl. The fascia is then approximated in the midline using a running stitch of #1 single stranded PDS. With a fresh set of gloves, the subcutaneous tissues was pulse lavaged with 2500 mL of sterile saline. Good hemostasis was noted in place. Subcutaneous tissues were approximated using interrupted sutures of 3-0 Vicryl. Skin incision was closed using a running stitch of 4-0 Monocryl suture in subcuticular fashion. Dermabond was applied over incisional closure. An elliptical transverse incision was made around the previous colostomy site. Incision was carried to subcu tissues maintain hemostasis using thermal cautery. The ostomy was dissected free from the fascia and passed off the operative field. The resultant defect was closed anteriorly using interrupted sutures of 0 Vicryl. Subcutaneous tissues were pulse lavaged with 500 mL of sterile saline. Deep tissues were approximated using interrupted sutures of 3-0 Vicryl. Skin incision was closed loosely using interrupted sutures of 3-0 nylon suture. Sterile dressings were applied here. The patient tolerated the operation without any apparent complication and was returned to recovery room in a satisfactory condition. Job ID: [id number]
[2018-10-24] MEDS ORDERED: Sodium Chloride 0.9% 500 ML IV SCH (20:45)
[2018-10-24] MEDS: cefOXitin 2 GM in Sodium Chloride 0.9% 100 ML IVPB SCH (21:04)
[2018-10-24] MEDS: Simvastatin 5 MG TAB PO SCH (21:05)
[2018-10-24] MEDS: Amitriptyline HCl 25 MG TAB PO SCH (21:05)
[2018-10-24] MEDS: Enoxaparin Sodium 40 MG/0.4 ML SYRINGE SC SCH (21:05)
[2018-10-24] MEDS: Lactated Ringer's 1,000 ML IV SCH (21:11)
[2018-10-25] MEDS: Acetaminophen 1,000 MG in Premix Bag 1 BAG IVPB SCH ×3 (02:21→13:44)
[2018-10-25] MEDS: cefOXitin 2 GM in Sodium Chloride 0.9% 100 ML IVPB SCH (03:14)
[2018-10-25 04:40] LABS: #Lymphocytes 2.8 thou/uL (1.20-3.40); #Monocytes 0.5 thou/uL (0.11-0.59); #Neutrophils 12.9 thou/uL (1.40-6.50); %Basophils 0.2 % (0.0-1.0); %Eosinophils 0.1 % (0.0-10.0); %Lymphocytes 17.2 % (21.0-51.0); %Monocytes 3.3 % (0.0-10.0); %Neutrophils 79.2 % (42.0-75.0); Hemoglobin 11.5 g/dL (12.0-16.0); Mean Corpuscular HGB CONC 31.2 g/dL (32.0-36.0); Mean Corpuscular Hemoglobin 26.2 pg (27.0-31.0); Mean Platelet Volume 10.2 fL (7.4-10.4); Platelet Count 157 thou/uL (130-400); RBC Distribution Width 15.9 % (11.5-14.5); Red Blood Cell (RBC) Count 4.39 mill/uL (4.20-5.40); White Blood Cell (WBC) Count 16.3 thou/uL (4.8-10.8)
[2018-10-25 04:55] LABS: ALT (SGPT) 23 U/L (8-55); AST (SGOT) 35 U/L (5-34); Albumin 3.3 g/dL (3.4-4.8); Alkaline Phosphatase 82 U/L (40-150); Anion Gap 11 mmol/L (10-20); BUN (Urea Nitrogen) 16 mg/dL (9.8-20.1); Bilirubin, Total 0.6 mg/dL (0.2-1.2); Calc. Creatinine Clearance 30 mL/min (70-130); Calcium 8.8 mg/dL (7.8-10.44); Carbon Dioxide 21 mmol/L (23-31); Chloride 108 mmol/L (98-107); Estimated GFR-MDRD 38; Glucose 166 mg/dL (83-110); Potassium 4.3 mmol/L (3.5-5.1); Protein, Total 5.3 g/dL (6.0-8.3); Sodium 136 mmol/L (136-145)
[2018-10-25 08:19] LABS: Magnesium 1.6 mg/dL (1.6-2.6)
[2018-10-25] MEDS: Lactated Ringer's 1,000 ML IV SCH ×3 (08:55→18:03)
[2018-10-25] MEDS: cefOXitin Sodium/Dextrose,Iso 2 GM in Premix Bag 1 BAG IVPB SCH ×2 (10:26→18:01)
--- NOTE | 2018-10-25 11:46 | PRG ---
DATE OF SERVICE: 10/25/2018 SUBJECTIVE: Ms. Lerner is an 78-year-old woman, who is postop day #1, status post exploratory laparotomy, extensive adhesiolysis, segmental small bowel resection with primary anastomosis, colostomy takedown, and primary colorectal anastomosis. She is awake and alert. She reports adequate pain control. Urinary output is improving. OBJECTIVE: VITAL SIGNS: This morning includes blood pressure 135/84, pulse is 75, respiratory rate is 21, maximum temperature in the last 24 hours is 98.7 degrees Fahrenheit, and oxygen saturation is 99% on 2 L by nasal cannula oxygen. HEENT: Reveals normocephalic and atraumatic. Pupils are equal, round, and reactive to light and accommodation. NECK: She has no jugular venous distention noted. HEART: Reveals regular rate and rhythm. No murmurs or gallops auscultated. LUNGS: Clear to auscultation bilaterally. Breathing, regular and nonlabored. ABDOMEN: Soft and nondistended. Incision is intact with minimum serosanguineous drainage in the midportion of the wound. Michele-Arthur drain has returned 275 mL of slightly serosanguineous fluid since surgery. LABORATORY DATA: Laboratory findings today includes CBC with 16,300 white blood cells and hemoglobin and hematocrit 11.5 and 36.9 respectively. Platelet count is 157,000. Metabolic profile; sodium 136, potassium is 4.3, chloride is 108, bicarb is 21, BUN is 16, creatinine is 1.35, glucose 166, and AST and ALT at 35 and 23 respectively. Magnesium 1.6 and phosphorus is 3.0. IMPRESSION: 1. Postop day #1, status post exploratory laparotomy, closure of colostomy with colorectal anastomosis. 2. Acute hypomagnesemia. 3. Acute hyperchloremic metabolic acidosis. 4. Acute kidney injury. PLAN: 1. Continue with fluid resuscitation. Monitoring urinary output as endpoint of resuscitation. 2. Correct abnormal electrolytes. 3. Increase activity per Physical and Occupational Therapy. 4. Above findings and plan has been discussed with the patient, who indicates understanding of the information given. She is certainly hemodynamically stable to be transferred to general surgical floor. Job ID: [id number]
[2018-10-25] MEDS ORDERED: Magnesium 2 GM/50 ML 2 GM in Premix Bag 1 BAG IVPB SCH (12:30)
[2018-10-25] MEDS: Amitriptyline HCl 25 MG TAB PO SCH (20:36)
[2018-10-25] MEDS: Enoxaparin Sodium 40 MG/0.4 ML SYRINGE SC SCH (20:36)
[2018-10-25] MEDS: Simvastatin 5 MG TAB PO SCH (20:36)
[2018-10-26] MEDS: cefOXitin Sodium/Dextrose,Iso 2 GM in Premix Bag 1 BAG IVPB SCH ×2 (01:14→09:24)
[2018-10-26 07:08] LABS: #Lymphocytes 4.1 thou/uL (1.20-3.40); #Neutrophils 11.7 thou/uL (1.40-6.50); %Basophils 0.1 % (0.0-1.0); %Eosinophils 0.1 % (0.0-10.0); %Lymphocytes 24.5 % (21.0-51.0); %Monocytes 5.7 % (0.0-10.0); %Neutrophils 69.6 % (42.0-75.0); Hemoglobin 11.1 g/dL (12.0-16.0); Mean Corpuscular HGB CONC 31.3 g/dL (32.0-36.0); Mean Corpuscular Hemoglobin 26.5 pg (27.0-31.0); Mean Corpuscular Volume 84.7 fL (78.0-98.0); Mean Platelet Volume 9.9 fL (7.4-10.4); Platelet Count 189 thou/uL (130-400); RBC Distribution Width 16.7 % (11.5-14.5); Red Blood Cell (RBC) Count 4.17 mill/uL (4.20-5.40); White Blood Cell (WBC) Count 16.9 thou/uL (4.8-10.8)
[2018-10-26 07:28] LABS: Anion Gap 11 mmol/L (10-20); BUN (Urea Nitrogen) 18 mg/dL (9.8-20.1); Calc. Creatinine Clearance 46 mL/min (70-130); Calcium 9.5 mg/dL (7.8-10.44); Carbon Dioxide 28 mmol/L (23-31); Chloride 106 mmol/L (98-107); Estimated GFR-MDRD 62; Glucose 107 mg/dL (83-110); Magnesium 2.1 mg/dL (1.6-2.6); Potassium 4.3 mmol/L (3.5-5.1); Sodium 141 mmol/L (136-145)
[2018-10-26] MEDS: Lactated Ringer's 1,000 ML IV SCH (09:22)
[2018-10-26] MEDS: Ketorolac Tromethamine 30 MG/ML VIAL IVP SCH ×2 (14:39→22:20)
[2018-10-26] MEDS ORDERED: Magnesium 2 GM/50 ML 2 GM in Premix Bag 1 BAG IVPB SCH (16:30)
[2018-10-26] MEDS: Simvastatin 5 MG TAB PO SCH (20:39)
[2018-10-26] MEDS: Amitriptyline HCl 25 MG TAB PO SCH (20:39)
[2018-10-26] MEDS: Enoxaparin Sodium 30 MG/0.3 ML SYRINGE SC SCH (20:40)
[2018-10-27] MEDS: Lactated Ringer's 1,000 ML IV SCH ×2 (00:26→02:57)
[2018-10-27] MEDS: Ketorolac Tromethamine 30 MG/ML VIAL IVP SCH ×2 (05:57→14:42)
[2018-10-27 07:04] LABS: Anion Gap 11 mmol/L (10-20); BUN (Urea Nitrogen) 20 mg/dL (9.8-20.1); Calc. Creatinine Clearance 51 mL/min (70-130); Calcium 9.1 mg/dL (7.8-10.44); Carbon Dioxide 28 mmol/L (23-31); Chloride 106 mmol/L (98-107); Estimated GFR-MDRD 66; Glucose 100 mg/dL (83-110); Magnesium 2.3 mg/dL (1.6-2.6); Phosphorus 2.1 mg/dL (2.3-4.7); Potassium 4.3 mmol/L (3.5-5.1); Sodium 141 mmol/L (136-145)
[2018-10-27] MEDS ORDERED: traMADol HCl 50 MG TAB PO PRN ×2 (10:05)
[2018-10-27] MEDS ORDERED: Ibuprofen 600 MG TAB PO PRN (10:05)
[2018-10-27 10:15] VITALS: BMI 24.6
[2018-10-27] MEDS: Acetaminophen 500 MG TAB PO SCH ×3 (11:27→20:38)
[2018-10-27] MEDS: Simvastatin 5 MG TAB PO SCH (20:37)
[2018-10-27] MEDS: Amitriptyline HCl 25 MG TAB PO SCH (20:37)
[2018-10-27] MEDS: Enoxaparin Sodium 30 MG/0.3 ML SYRINGE SC SCH (20:38)
--- NOTE | 2018-10-27 21:20 | PRG ---
DATE OF SERVICE: 10/27/2018 SUBJECTIVE: Ms. Lerner is an 78-year-old woman, who is postoperative day #3, status post colostomy takedown. She is awake and alert today, reporting adequate pain control. She is passing flatus and having bowel movement. She is tolerating trophic tube feeds. OBJECTIVE: VITAL SIGNS: Today included blood pressure 155/78, pulse 78, respiratory rate is 18, temperature 97.4 degrees Fahrenheit, and oxygen saturation 96% on room air. HEART: Reveals regular rate and rhythm. No murmurs or gallops auscultated. LUNGS: Clear to auscultation bilaterally. Breathing, regular and unlabored. ABDOMEN: Soft and nondistended. Incision has some drainage in the midportion of the wound around the umbilicus. The Michele-Arthur drain has returned serosanguineous fluid, approximately 60 mL the previous 24 hours. : The patient has adequate urinary output. LABORATORY FINDINGS: Today included metabolic profile was sodium 141, potassium 4.3, chloride is 106, bicarb 28, BUN 20, creatinine 0.83, glucose is 100, magnesium is 2.3, and phosphorus is 2.1. IMPRESSION: Postop day #3, status post exploratory laparotomy with colostomy closure. PLAN: Michele-Arthur drain was removed without incident. There was a fair amount of serosanguineous fluid from the drain exit site. Dressing was applied. Nasojejunal tube was also discontinued, and the patient was initiated on clear liquid diet. We will increase activity as the patient tolerates. Above findings and plan discussed with the patient, who indicates understanding of information given. I have answered the questions. Job ID: [id number]
[2018-10-28 04:58] LABS: Anion Gap 8 mmol/L (10-20); BUN (Urea Nitrogen) 19 mg/dL (9.8-20.1); Calc. Creatinine Clearance 56 mL/min (70-130); Carbon Dioxide 27 mmol/L (23-31); Chloride 107 mmol/L (98-107); Estimated GFR-MDRD 74; Glucose 89 mg/dL (83-110); Magnesium 1.9 mg/dL (1.6-2.6); Phosphorus 3.1 mg/dL (2.3-4.7); Potassium 4.1 mmol/L (3.5-5.1); Sodium 138 mmol/L (136-145)
[2018-10-28] MEDS: Acetaminophen 500 MG TAB PO SCH ×4 (05:02→21:10)
[2018-10-28 05:13] LABS: Band 4 % (5-11); Eosinophils 1 % (0-10); Hemoglobin 8.6 g/dL (12.0-16.0); Lymphocytes 41 % (21-51); MDiff Complete? YES; Mean Corpuscular HGB CONC 32.1 g/dL (32.0-36.0); Mean Corpuscular Hemoglobin 26.8 pg (27.0-31.0); Mean Corpuscular Volume 83.6 fL (78.0-98.0); Monocytes 8 % (0-10); Neutrophil 41 % (42-75); Platelet Count 147 thou/uL (130-400); Platelet Morphology Comment Appears Adequate; RBC Distribution Width 15.8 % (11.5-14.5); RBC Morphology Normal; Reactive Lymphocytes 5 % (0-10); Red Blood Cell (RBC) Count 3.22 mill/uL (4.20-5.40); White Blood Cell (WBC) Count 15.9 thou/uL (4.8-10.8)
[2018-10-28] MEDS ORDERED: Potassium Phosphate 15 MMOL in Sodium Chloride 0.9% 250 ML 250 ML IVPB SCH (11:00)
[2018-10-28] MEDS ORDERED: Magnesium Sulfate 3 GM in Sodium Chloride 0.9% 100 ML IVPB SCH (11:00)
--- NOTE | 2018-10-28 11:21 | PRG ---
DATE OF SERVICE: 10/28/2018 SUBJECTIVE: Ms. Lerner is an 78-year-old woman, postop day #4 status post exploratory laparotomy, colostomy closure. She is ambulating with minimal difficulty. She reports adequate pain control. She is having scant loose bowel movements. Michele-Arthur drain was removed yesterday and there was a fair amount of bleeding from the drain exit site. There is no active bleeding at this time. The patient denies any nausea, vomiting, dyspnea or syncope. OBJECTIVE: VITAL SIGNS: This morning include blood pressure 158/90, pulse is 97, respiratory rate is 20, temperature 98.5 degrees Fahrenheit, oxygen saturation 99% on room air. ABDOMEN: Soft and moderately distended, but no significant tenderness to palpation. Midline incision was in intact and dry. The previous colostomy site is intact. Clearly, the patient has no peritoneal signs on examination. There is a fair amount of bruising of the anterior abdominal wall. NEUROLOGIC: Reveals no focal deficits present. LABORATORY FINDINGS: Today includes a CBC with 15,900 white blood cells. Hemoglobin and hematocrit 8.6 and 26.9 respectively. Platelet count is 147,000. Metabolic profile; sodium 138, potassium is 4.1, chloride 107, bicarb is 27, BUN 19, creatinine 0.75, glucose is 89, magnesium 1.9, phosphorus 3.1. IMPRESSION: 1. Postop day #4 status post exploratory laparotomy with extensive adhesiolysis and colostomy closure. 2. Acute blood loss anemia. 3. Acute hypomagnesemia. PLAN: 1. Correct abnormal electrolytes. 2. The patient will be started on ferrous sulfate and vitamin C. 3. We Will increase diet and activity as tolerated. Anticipate discharge within next 2 days. The above findings and plan discussed with the patient, who indicates understanding information given. I have answered her questions. Job ID: [id number]
[2018-10-28] MEDS: Simvastatin 5 MG TAB PO SCH (19:58)
[2018-10-28] MEDS: Enoxaparin Sodium 30 MG/0.3 ML SYRINGE SC SCH (19:58)
[2018-10-28] MEDS: Amitriptyline HCl 25 MG TAB PO SCH (19:58)
[2018-10-29] MEDS: Acetaminophen 500 MG TAB PO SCH ×2 (04:55→11:32)
[2018-10-29 08:06] LABS: Hemoglobin 8.9 g/dL (12.0-16.0); Mean Corpuscular HGB CONC 31.3 g/dL (32.0-36.0); Mean Corpuscular Hemoglobin 26.3 pg (27.0-31.0); Mean Corpuscular Volume 84.1 fL (78.0-98.0); Platelet Count 173 thou/uL (130-400); Red Blood Cell (RBC) Count 3.37 mill/uL (4.20-5.40)
[2018-10-29 08:24] LABS: Anion Gap 11 mmol/L (10-20); BUN (Urea Nitrogen) 18 mg/dL (9.8-20.1); Calc. Creatinine Clearance 52 mL/min (70-130); Calcium 9.5 mg/dL (7.8-10.44); Carbon Dioxide 27 mmol/L (23-31); Chloride 107 mmol/L (98-107); Estimated GFR-MDRD 69; Glucose 99 mg/dL (83-110); Phosphorus 3.5 mg/dL (2.3-4.7); Potassium 4.5 mmol/L (3.5-5.1); Sodium 140 mmol/L (136-145)
[2018-10-29 08:50] LABS: Band 1 % (5-11); Eosinophils 2 % (0-10); Hypochromia SLIGHT = 6-15 cells (100X) (0-5/hpf); Lymphocytes 6 % (21-51); MDiff Complete? YES; Mean Platelet Volume 9.7 fL (7.4-10.4); Microcytosis MODERATE=15-30 cells (100X) (0-5/hpf); Monocytes 12 % (0-10); Neutrophil 31 % (42-75); Platelet Morphology Comment Appears Adequate; Polychromasia SLIGHT = 2-3 cells (100X) (0-2/hpf); Reactive Lymphocytes 48 % (0-10); White Blood Cell (WBC) Count 14.8 thou/uL (4.8-10.8)
[2018-10-29] MEDS ORDERED: Ascorbic Acid 500 mg Chewable Tablet PO SCH (09:00)
[2018-10-29 12:12] VITALS: BP 142/82; TEMP 99
--- NOTE | 2018-10-29 13:46 | DIS ---
DATE OF ADMISSION: 10/24/2018 DATE OF DISCHARGE: 10/29/2018 ADMITTING DIAGNOSIS: Status post sigmoidectomy with end colostomy. DISCHARGE DIAGNOSES: 1. Status post sigmoidectomy with end colostomy. 2. Acute blood loss anemia, stable. OPERATIONS PERFORMED: 1. Exploratory laparotomy. 2. Extensive adhesiolysis. 3. Colostomy closure with colorectal anastomosis. All procedures on 10/24/[address] Ansari. Please see a separate dictation for operative report. HISTORY AND HOSPITAL COURSE: This is an 78-year-old woman who underwent previous exploratory laparotomy with sigmoidectomy and end colostomy several months ago. She was brought to the operating room for exploration and colostomy closure. Following the uneventful operation, the patient was initially admitted to the intensive care unit where she had an uneventful stay. Twenty four hours later, she was transferred to the surgical floor, where she has remained at time of discharge. Today, the patient is ambulating with minimal difficulty. Her pain is adequately controlled on oral analgesics. She is tolerating general diet, having normal bowel and urinary function. She has remained hemodynamically stable and afebrile throughout this hospitalization. Clinical examination today reveals a woman in good spirits. Her vital signs stable with a blood pressure of 142/82, pulse is 97, respiratory rate is 20, temperature is 99 degrees Fahrenheit, oxygen saturation is 99% on room air. Abdominal examination, incisional wound remains intact, clean, and dry. She has bruising of the anterior abdominal wall. She did have a fair amount of bleeding from the drainage exit site. Currently, there is no active bleeding present. Laboratory findings today includes a CBC with 14,800 white blood cells, hemoglobin and hematocrit 8.9 and 28.3 respectively. Platelet count 173,000. Differential count as follows; 31% neutrophils, 1 band, 6 lymphocytes, and 12 monocytes. Metabolic profile; sodium 140, potassium 4.5, chloride is 107, bicarb is 27, BUN is 18, creatinine is 0.80, glucose is 99, phosphorus is 3.5, magnesium is 2.0. The patient will be discharged home today with the following instructions. 1. She is to resume all pre-hospital medications as prescribed by her primary care physician. 2. Additionally, she may take Tylenol 1000 mg p.o. q.6 hours, alternating this with ibuprofen 600 mg p.o. q.8 hours p.r.n. pain. 3. She is also given a prescription for tramadol 50 mg #30 to be taken one p.o. q.6 hours p.r.n. severe pain. She is encouraged to ambulate daily to avoid complications of venous thromboembolism. 4. She is to call me with any questions or problems including return of abdominal pain, fever in excess of 101 degrees Fahrenheit or intolerance to oral intake. 5. She also to call me with any abnormal drainage from the incisional wound. 6. She is to follow up with me in the Surgery Clinic in 2 weeks. 7. She may follow up with her primary care physician as needed with regard to hypertension. 8. She was given a prescription for ferrous sulfate 325 mg #30 to be taken one p.o. b.i.d. as well as Florastor 250 mg #30 to be taken one p.o. daily. 9. The patient may shower, but avoid soaking herself in a bathtub or swimming until I have seen her in the next 2 weeks. The patient and her have indicated understanding of information given. I have answered their questions. Job ID: [id number]
[2018-10-29] MEDS ORDERED: Ferrous Sulfate 325 MG TAB PO SCH (17:00)
[2018-10-30] MEDS ORDERED: Saccharomyces boulardii 250 MG CAP PO SCH (09:00)
== END 2018-10-29 13:43 | disposition home or self-care (01) | DRG 330 ==
LOC: SURG A 10-24 07:34 → IMCU/EMU 10-24 16:41 → SURG A 10-25 17:17
PROVIDERS: ADMIT Surgery; ATTEND Surgery
PROC: 0DQN0ZZ Repair Sigmoid Colon, Open Approach (ICD-10-PCS; principal; 2018-10-24)
PROC: 0DNW0ZZ Release Peritoneum, Open Approach (ICD-10-PCS; 2018-10-24)
PROC: 0WJG0ZZ Inspection of Peritoneal Cavity, Open Approach (ICD-10-PCS; 2018-10-24)
PROC: 0DHA0UZ Insertion of Feeding Device into Jejunum, Open Approach (ICD-10-PCS; 2018-10-24)
DX: Z43.3 Encounter for attention to colostomy (principal); K56.609 Unspecified intestinal obstruction, unspecified as to partial versus complete obstruction; D62 Acute posthemorrhagic anemia; N17.9 Acute kidney failure, unspecified; E87.2 Acidosis
CPT/HCPCS: 36415; 36416; 71045; 74018; 80048; 80053; 83735; 84100; 85025; 86850; 86900; 86901; 88305; 90471; 90662; G0008; J0131; J0670; J0694; J1100; J1650; J1885; J2001; J2250; J2405; J2704; J3010; J3475; J7050; S0028

== ENCOUNTER 2018-10-18 08:44 | Outpatient (CLI) | payer MEDICARE, OTHER ==
--- NOTE | 2018-10-18 10:36 | RAD ---
CONTRAST ENEMA SINGLE COLUMN: DATE: 10/18/2018. HISTORY: An 78-year-old female with colostomy. Evaluate for leakage of Armani's pouch prior to colostomy ta tobin. TECHNIQUE: Die Press Operator view of abdomen obtained. Following placement of rectal catheter, Gastrografin was introduced i nto the rectum under brief, intermittent fluoroscopy. FINDINGS: The lay health advocate view demonstrates moderately large volume of colonic stool. There is a left lower quadrant colostomy. There are old healed fractures of the bilateral superior and inferior rami in the pelvis . Fluoroscopic images demonstrate contrast in Armani's pouch, with no evidence of leakage. IMPRESSION: 1. No leakage from Dutton's pouch. 2. Constipation. 3. Bilateral old, healed fracture deformities of the superior and inferior pelvic rami. POS: HAILE
== END 2018-10-18 08:45 | disposition home or self-care (01) ==
LOC: RAD 08:44
PROVIDERS: ATTEND Surgery
DX: Z48.815 Encounter for surgical aftercare following surgery on the digestive system (principal); Z93.3 Colostomy status; K59.00 Constipation, unspecified
CPT/HCPCS: 74270

== ENCOUNTER 2018-11-23 12:39 | Outpatient (CLI) | payer MEDICARE, OTHER ==
--- NOTE | 2018-11-23 13:05 | MMO ---
Bilateral MAMMO Bilat Screen DDI+MIQUEL. CLINICAL HISTORY: Patient is 78 years old and is seen for screening. The patient has the following family history of breast cancer: maternal aunt. The patient has no personal history of cancer. VIEWS: The views performed were: bilateral craniocaudal with tomosynthesis and bilateral mediolateral oblique with tomosynthesis. FILMS COMPARED: The present examination has been compared to prior imaging studies performed at [facility] on 10/27/2017 and 11/10/2017, and at [facility] on 10/12/2013, 10/14/2014, 10/17/2015 and 10/19/2016. MAMMOGRAM FINDINGS: There are scattered fibroglandular densities. Finding 1: There are benign appearing calcifications seen in both breasts. Finding 2: There are benign appearing calcifications seen in both breasts. There are no suspicious masses, calcifications or areas of architectural distortion. IMPRESSION: ALL ABOVE FINDINGS ARE BENIGN. A ROUTINE FOLLOW-UP MAMMOGRAM IN 1 YEAR IS RECOMMENDED. THE RESULTS OF THIS EXAM WERE SENT TO THE PATIENT. ACR BI-RADS Category 2 - Benign finding MAMMOGRAPHY NOTE: 1. A negative mammogram report should not delay a biopsy if a dominant of clinically suspicious mass is present. 2. Approximately 10% to 15% of breast cancers are not detected by mammography. 3. Adenosis and dense breasts may obscure an underlying neoplasm.
== END 2018-11-23 12:40 | disposition home or self-care (01) ==
LOC: BICMAMMO 12:39
PROVIDERS: ATTEND Family Medicine
DX: Z12.31 Encounter for screening mammogram for malignant neoplasm of breast (principal); Z80.3 Family history of malignant neoplasm of breast
CPT/HCPCS: 77063; 77067

== ENCOUNTER 2019-11-07 13:40 | Outpatient (CLI) | payer MEDICARE, OTHER ==
[2019-11-07 15:48] LABS: ALT (SGPT) 18 U/L (8-55); AST (SGOT) 19 U/L (5-34); Alkaline Phosphatase 99 U/L (40-110); Anion Gap 12 mmol/L (10-20); BUN (Urea Nitrogen) 23 mg/dL (9.8-20.1); Bilirubin, Total 0.4 mg/dL (0.2-1.2); Calc. Creatinine Clearance 0 mL/min (70-130); Calcium 10.3 mg/dL (7.8-10.44); Carbon Dioxide 26 mmol/L (23-31); Chloride 107 mmol/L (98-107); Estimated GFR-MDRD 55; Globulin 2.2 g/dL (2.4-3.5); Glucose 83 mg/dL (83-110); Potassium 4.4 mmol/L (3.5-5.1); Protein, Total 6.2 g/dL (6.0-8.3); Sodium 141 mmol/L (136-145)
[2019-11-07 16:00] LABS: Band 4 % (5-11); Eosinophils 1 % (0-10); Hemoglobin 12.5 g/dL (12.0-16.0); Lymphocytes 32 % (21-51); MDiff Complete? YES; Mean Corpuscular HGB CONC 32.8 g/dL (32.0-36.0); Mean Corpuscular Hemoglobin 29.5 pg (27.0-31.0); Mean Corpuscular Volume 90.1 fL (78.0-98.0); Mean Platelet Volume 9.7 fL (7.4-10.4); Monocytes 3 % (0-10); Neutrophil 25 % (42-75); Platelet Count 166 thou/uL (130-400); Platelet Morphology Comment Appears Adequate; RBC Distribution Width 11.6 % (11.5-14.5); RBC Morphology Normal; Reactive Lymphocytes 35 % (0-10); Red Blood Cell (RBC) Count 4.23 mill/uL (4.20-5.40); Reflex for Review?? NO; White Blood Cell (WBC) Count 13.9 thou/uL (4.8-10.8)
--- NOTE | 2019-11-08 16:53 | EKG ---
Test Reason : Blood Pressure : / mmHG Vent. Rate : 092 BPM Atrial Rate : 092 BPM P-R Int : 174 ms QRS Dur : 080 ms QT Int : 350 ms P-R-T Axes : 057 050 022 degrees QTc Int : 432 ms Normal sinus rhythm Low voltage QRS Cannot rule out Anterior infarct , age undetermined Abnormal ECG Confirmed by MARTÍN FLORES ([id number]) on 11/08/2019 4:53:09 PM Referred By: MANDI Confirmed By:MARTÍN FLORES
== END 2019-11-07 13:41 | disposition home or self-care (01) ==
LOC: LABBT 13:40
PROVIDERS: ATTEND Specialist
DX: Z01.818 Encounter for other preprocedural examination (principal); K43.2 Incisional hernia without obstruction or gangrene
CPT/HCPCS: 80053; 85025; 93005; 93010

== ENCOUNTER 2019-11-09 05:59 | Day surgery (SDC) | payer MEDICARE, OTHER ==
--- NOTE | 2019-10-19 13:16 | HP ---
HISTORY OF PRESENT ILLNESS: Gena Lerner is an 79-year-old female, who presents with an incisional hernia in the lower abdomen between her umbilicus and pubis. This is slightly bothersome to her. Her dialyzes Tuesday, Tuesday, and Tuesday 1 p.m. She is hoping to have this repaired early in the morning on Tuesday, Tuesday, and Tuesday morning. The patient reports having had a colonoscopy in [address] Knott. She presented with abdominal pain, colon obstruction in April 2018, undergoing Dr. Thompson attempted flex sig, unsuccessful due to retained stool. Dr. Ansari performed on 05/08/2018, laparotomy, sigmoid colon resection, and colostomy. Pathology revealed diverticulitis. She returned for October 2018 laparotomy, colostomy reversal. She has developed this incisional hernia. This is bothersome to her. PAST SURGICAL HISTORY: Abdominal hysterectomy and bilateral salpingo-oophorectomy in 1986, appendectomy, right breast biopsy, colonoscopy by Dr. Knott in 2004, and April 2018 laparotomy, sigmoid colon resection, colostomy, and sessile polyps. Colostomy resection in October [address] Ansari. PAST MEDICAL HISTORY: Fibrocystic disease, osteopenia, hyperlipidemia, hypertension, vitamin D deficiency, right pelvis fracture treated nonoperatively in 2015, atrial fibrillation . REVIEW OF SYSTEMS: Ten-point noncontributory. The patient is in need of a completion colonoscopy due to obstruction. Review of systems, cardiac and pulmonary, noncontributory. PHYSICAL EXAMINATION: VITAL SIGNS: 126 pounds, 5 feet tall, and 24 BMI. 143/62, 94, and 98 degrees. HEAD, EARS, EYES, NOSE, AND THROAT: Unremarkable. LUNGS: Clear to auscultation. CARDIAC: Regular rate and rhythm without no murmur or gallop. ABDOMEN: Soft, flat, nondistended. Midline scar from above her umbilicus to her pubis. Incisional hernia to a 2 cm defect junction lower third, mid third area between the umbilicus and pubis. Remainder of incision looks good without evident hernia. EXTREMITIES: Unremarkable. ASSESSMENT AND PLAN: Incisional hernia. We would recommend robot mesh repair as an outpatient. Risks and benefits discussed, she consents. She will call when she is ready to schedule this. We will schedule this as first thing in the morning due to her 's dialysis needs. Job ID: [id number]
[2019-11-07 14:02] VITALS: BMI 23.8
[2019-11-09] MEDS ORDERED: Fentanyl 100 MCG/2 ML VIAL ONE (06:12)
[2019-11-09] MEDS ORDERED: Acetaminophen 500 MG TAB ONE (06:13)
[2019-11-09] MEDS ORDERED: Famotidine/PF 20 mg/2ml Vial ONE (06:13)
[2019-11-09] MEDS ORDERED: Gabapentin 300 MG CAP ONE (06:14)
[2019-11-09] MEDS ORDERED: Ketorolac Tromethamine 30 MG/ML VIAL ONE (06:14)
[2019-11-09] MEDS ORDERED: SUGAMMADEX SODIUM 200 MG/2 ML VIAL ONE (07:01)
[2019-11-09] MEDS ORDERED: Bupivacaine PF 0.5% 30 ML VIAL ONE (07:11)
[2019-11-09] MEDS ORDERED: Lidocaine 1% w/Epinephrine 1:100K 20 ML VIAL ONE (07:11)
[2019-11-09] MEDS ORDERED: PROPOFOL 200 MG/20 ML VIAL ONE (10:09)
[2019-11-09] MEDS ORDERED: Metoclopramide HCl 10 MG/2 ML VIAL ONE (10:09)
[2019-11-09] MEDS ORDERED: Dexamethasone 20 MG/5 ML VIAL ONE (10:09)
[2019-11-09] MEDS ORDERED: EPHEDRINE 25 MG/5 ML SYRINGE ONE (10:09)
[2019-11-09] MEDS ORDERED: Rocuronium Bromide 10 MG/ML (10ML VIAL) ONE (10:09)
[2019-11-09] MEDS ORDERED: Lidocaine 1% PF 5 ML VIAL ONE (10:09)
[2019-11-09] MEDS ORDERED: PHENYLEPHRINE-NS 100 MCG/ML 10 ML SYRINGE ONE (10:09)
[2019-11-09] MEDS ORDERED: Ondansetron PF 4 MG/2 ML Vial ONE (10:09)
--- NOTE | 2019-11-09 10:34 | OP ---
DATE OF PROCEDURE: 11/09/2019 PREOPERATIVE DIAGNOSIS: Incisional hernia located between the umbilicus and pubis midline from her prior colectomy and colostomy reversal. POSTOPERATIVE DIAGNOSIS: Incisional hernia located between the umbilicus and pubis midline from her prior colectomy and colostomy reversal with 2.5 to 3 cm defect. No adhesions. PROCEDURE PERFORMED: Laparoscopic/robotic incisional hernia repair with 9 cm diameter Ventralight mesh reinforcement of fascial approximation. ANESTHESIA: General, local 0.25% Marcaine 30 mL mixed with 1% Xylocaine with epinephrine, 20 mL total volume mixture used. DESCRIPTION OF PROCEDURE: The patient was taken to the operating room, where under general anesthesia, Terry catheter was placed at the beginning of the procedure and removed at the end. Abdomen was prepared with ChloraPrep and draped in routine fashion. Left lateral subcostal incision was made, pneumoperitoneum to 15 mmHg was obtained with a Veress needle, replaced with a 5 port and robot laparoscope inserted and there were no adhesions. A subxiphoid left to midline incision made, and an 11 mm balloon port placed. Right lateral subcostal incision was made. An 8 mm port was placed. The patient was placed in slight Trendelenburg and robot docked and robotic incisional hernia repair undertaken. There was a 3 cm defect located between the umbilicus and pubis. There were no adhesions. Hernia sac was dissected free, excised, avoiding encroachment on the skin. Pneumoperitoneum reduced to 8 mmHg. Fascial defect was closed with continuous to-and-fro suture with #1 StrataFix suture. Once this was closed, the suture left long and Ventralight mesh was placed and the 11 cm mesh trimmed down to a 9 cm diameter mesh and #1 StrataFix suture brought through the center of the mesh and brought out to the end, sewed to the abdominal wall toward the periphery and then circumferentially completing the approximation with a 2-0 V-Loc suture completing mesh approximation. At this point, all needles were retrieved. Pneumoperitoneum was reduced. All instruments were removed, and subxiphoid midline anterior rectus fascia approximated with single suture of 0 Vicryl UR needle and skin incisions closed by approximating subdermal 4-0 Monocryl. The patient tolerated the procedure well. Job ID: [id number]
== END 2019-11-09 13:07 | disposition home or self-care (01) ==
LOC: SDC 05:59
PROVIDERS: ATTEND Specialist
PROC: 0WUF4JZ Supplement Abdominal Wall with Synthetic Substitute, Percutaneous Endoscopic Approach (ICD-10-PCS; principal; 2019-11-09)
DX: K43.2 Incisional hernia without obstruction or gangrene (principal); E78.5 Hyperlipidemia, unspecified; E55.9 Vitamin D deficiency, unspecified; M85.88 Other specified disorders of bone density and structure, other site; M19.90 Unspecified osteoarthritis, unspecified site; I12.9 Hypertensive chronic kidney disease with stage 1 through stage 4 chronic kidney disease, or unspecified chronic kidney disease; N18.9 Chronic kidney disease, unspecified; Z79.899 Other long term (current) drug therapy; Z88.2 Allergy status to sulfonamides; Z88.5 Allergy status to narcotic agent; Z90.49 Acquired absence of other specified parts of digestive tract
CPT/HCPCS: 49654; C1781; J0690; J1100; J1885; J2001; J2405; J2704; J2765; J3010; S0020; S0028

== ENCOUNTER 2019-11-26 15:30 | Outpatient (CLI) | payer MEDICARE, OTHER ==
--- NOTE | 2019-11-26 16:10 | MMO ---
Bilateral MAMMO Bilat Screen DDI+MIQUEL. CLINICAL HISTORY: Patient is 79 years old and is seen for screening. The patient has the following family history of breast cancer: maternal aunt. The patient has no personal history of cancer. VIEWS: The views performed were: bilateral craniocaudal with tomosynthesis and bilateral mediolateral oblique with tomosynthesis. FILMS COMPARED: The present examination has been compared to prior imaging studies performed at [facility] on 10/27/2017, 11/10/2017 and 11/23/2018. This study has been interpreted with the assistance of computer-aided detection. MAMMOGRAM FINDINGS: There are scattered fibroglandular densities. There are stable benign appearing calcifications seen in both breasts. There are no suspicious masses, suspicious calcifications, or new areas of architectural distortion. IMPRESSION: THERE IS NO MAMMOGRAPHIC EVIDENCE OF MALIGNANCY. A ROUTINE FOLLOW-UP MAMMOGRAM IN 1 YEAR IS RECOMMENDED. THE RESULTS OF THIS EXAM WERE SENT TO THE PATIENT. ACR BI-RADS Category 2 - Benign finding MAMMOGRAPHY NOTE: 1. A negative mammogram report should not delay a biopsy if a dominant of clinically suspicious mass is present. 2. Approximately 10% to 15% of breast cancers are not detected by mammography. 3. Adenosis and dense breasts may obscure an underlying neoplasm. Reported by: PRASANNA LING MD Electonically Signed: [id number]
== END 2019-11-26 15:31 | disposition home or self-care (01) ==
LOC: BICMAMMO 15:30
PROVIDERS: ATTEND Family Medicine
DX: Z12.31 Encounter for screening mammogram for malignant neoplasm of breast (principal); Z80.3 Family history of malignant neoplasm of breast
CPT/HCPCS: 77063; 77067

== ENCOUNTER 2020-10-10 13:25 | Outpatient (CLI) | payer MEDICARE, OTHER ==
--- NOTE | 2020-10-10 14:00 | BD ---
EXAM: DEXA bone density examination HISTORY: 80-year-old postmenopausal female for screening COMPARISON: None FINDINGS: L1--bone mineral density 0.871 g/sq cm; T score -1.1 L2--bone mineral density 0.974 g/sq cm; T score -0.5 L3--bone mineral density 1.059 g/sq cm; T score -0.2 L4--bone mineral density 1.062 g/sq cm; T score 0.0 Total L1-L4--bone mineral density 0.999 g/sq cm; T score -0.4 Left femoral neck--bone mineral density0.667; T score -1.6 Total proximal left femur--bone mineral density 0.883; T score -0.5 IMPRESSION: Osteopenia.
== END 2020-10-10 13:26 | disposition home or self-care (01) ==
LOC: BICMAMMO 13:25
PROVIDERS: ATTEND Family Medicine
DX: M85.89 Other specified disorders of bone density and structure, multiple sites (principal)
CPT/HCPCS: 77080

== ENCOUNTER 2020-11-27 10:53 | Outpatient (CLI) | payer MEDICARE, OTHER | END 2020-11-27 10:54 | disposition home or self-care (01) | LOC: BICMAMMO 10:53 | PROVIDERS: ATTEND Family Medicine | DX: Z12.31 Encounter for screening mammogram for malignant neoplasm of breast (principal); Z80.3 Family history of malignant neoplasm of breast | CPT/HCPCS: 77063; 77067 ==

== ENCOUNTER 2022-08-26 14:21 | Outpatient (CLI) | payer MEDICARE, OTHER | END 2022-08-26 14:22 | disposition home or self-care (01) | LOC: CTENTCT 14:21 | PROVIDERS: ATTEND Otolaryngology Plastic Surgery within the Head & Neck | DX: J32.9 Chronic sinusitis, unspecified (principal) | CPT/HCPCS: 70486 ==

== ENCOUNTER 2022-09-23 11:30 | Outpatient (CLI) | payer MEDICARE, OTHER ==
[2022-09-23 13:31] LABS: Hemoglobin 12.2 g/dL (12.0-15.5)
[2022-09-23 13:55] LABS: Anion Gap 13 mmol/L (10-20); BUN (Urea Nitrogen) 22 mg/dL (9.8-20.1); Calc. Creatinine Clearance 0 mL/min (70-130); Calcium 10.1 mg/dL (7.8-10.44); Carbon Dioxide 26 mmol/L (23-31); Chloride 108 mmol/L (98-107); Estimated GFR 59; Glucose 75 mg/dL (83-110); Potassium 4.6 mmol/L (3.5-5.1); Sodium 142 mmol/L (136-145)
== END 2022-09-23 11:31 | disposition home or self-care (01) ==
LOC: LABBT 11:30
PROVIDERS: ATTEND Otolaryngology Plastic Surgery within the Head & Neck
DX: Z01.818 Encounter for other preprocedural examination (principal); J34.3 Hypertrophy of nasal turbinates; J32.0 Chronic maxillary sinusitis; J32.1 Chronic frontal sinusitis; J32.2 Chronic ethmoidal sinusitis; J32.3 Chronic sphenoidal sinusitis
CPT/HCPCS: 80048; 85014; 85018; 93005; 93010

== ENCOUNTER 2022-09-29 06:33 | Day surgery (SDC) | payer MEDICARE, OTHER ==
[2022-09-28 11:00] VITALS: BMI 23.8
[2022-09-29] MEDS ORDERED: Fentanyl 250 MCG/5 ML VIAL ONE (06:46)
[2022-09-29] MEDS ORDERED: Phenylephrine 10 MG/ML VIAL ONE (06:46)
[2022-09-29] MEDS ORDERED: Oxymetazoline HCl 0.05% (30 ML BOT) ONE ×2 (07:01→07:02)
[2022-09-29] MEDS ORDERED: Lidocaine 1% (PF) 30 ML VIAL ONE (07:02)
[2022-09-29] MEDS ORDERED: Bacitracin Zinc Ointment 30 gm TUBE ONE (07:02)
[2022-09-29] MEDS ORDERED: EPINEPHrine 1 MG/ML AMP ONE (07:02)
[2022-09-29] MEDS ORDERED: SUGAMMADEX SODIUM 200 MG/2 ML VIAL ONE (07:44)
[2022-09-29] MEDS ORDERED: PROPOFOL 200 MG/20 ML VIAL ONE (07:51)
[2022-09-29] MEDS ORDERED: Ondansetron PF 4 MG/2 ML Vial ONE (07:51)
[2022-09-29] MEDS ORDERED: Rocuronium Bromide 10 MG/ML (10ML VIAL) ONE (07:51)
[2022-09-29] MEDS ORDERED: Dexamethasone 20 MG/5 ML VIAL ONE (07:51)
== END 2022-09-29 10:05 | disposition home or self-care (01) ==
LOC: SDC 06:33
PROVIDERS: ATTEND Otolaryngology Plastic Surgery within the Head & Neck
PROC: 8E09XBZ Computer Assisted Procedure of Head and Neck Region (ICD-10-PCS; principal; 2022-09-29)
PROC: 09BR8ZZ Excision of Left Maxillary Sinus, Via Natural or Artificial Opening Endoscopic (ICD-10-PCS; 2022-09-29)
PROC: 099Q8ZZ Drainage of Right Maxillary Sinus, Via Natural or Artificial Opening Endoscopic (ICD-10-PCS; 2022-09-29)
PROC: 09BT8ZZ Excision of Left Frontal Sinus, Via Natural or Artificial Opening Endoscopic (ICD-10-PCS; 2022-09-29)
PROC: 099S8ZZ Drainage of Right Frontal Sinus, Via Natural or Artificial Opening Endoscopic (ICD-10-PCS; 2022-09-29)
PROC: 09TV8ZZ Resection of Left Ethmoid Sinus, Via Natural or Artificial Opening Endoscopic (ICD-10-PCS; 2022-09-29)
PROC: 09TU8ZZ Resection of Right Ethmoid Sinus, Via Natural or Artificial Opening Endoscopic (ICD-10-PCS; 2022-09-29)
PROC: 09TL8ZZ Resection of Nasal Turbinate, Via Natural or Artificial Opening Endoscopic (ICD-10-PCS; 2022-09-29)
DX: J32.4 Chronic pansinusitis (principal); J33.8 Other polyp of sinus; J34.3 Hypertrophy of nasal turbinates; J34.89 Other specified disorders of nose and nasal sinuses; E78.5 Hyperlipidemia, unspecified; I10 Essential (primary) hypertension; Z79.899 Other long term (current) drug therapy; Z88.2 Allergy status to sulfonamides; Z88.5 Allergy status to narcotic agent
CPT/HCPCS: J0171; J1100; J2001; J2370; J2405; J2704; J3010

== ENCOUNTER 2022-11-23 13:14 | Outpatient (CLI) | payer MEDICARE, OTHER ==
[~2022-11-23 13:14] MED LIST changes: -ISOVUE-370 76%-LOCM 1 ML ONE; -Iopamidol 370 76% 50 ML VIAL FS ONE; +Iopamidol-370 76% 500 ML 1 ML ONE
== END 2022-11-23 13:15 | disposition home or self-care (01) ==
LOC: BICCT 13:14
PROVIDERS: ATTEND Internal Medicine
DX: C91.10 Chronic lymphocytic leukemia of B-cell type not having achieved remission (principal); D72.820 Lymphocytosis (symptomatic); R59.0 Localized enlarged lymph nodes; E04.2 Nontoxic multinodular goiter; K59.00 Constipation, unspecified
CPT/HCPCS: 70491; 71260; 74177; 82565; Q9967

== ENCOUNTER 2022-12-10 14:21 | Outpatient (CLI) | payer MEDICARE, OTHER | END 2022-12-10 14:22 | disposition home or self-care (01) | LOC: BICMAMMO 14:21 | PROVIDERS: ATTEND Family Medicine | DX: Z12.31 Encounter for screening mammogram for malignant neoplasm of breast (principal); Z78.0 Asymptomatic menopausal state; M85.80 Other specified disorders of bone density and structure, unspecified site | CPT/HCPCS: 77063; 77067; 77080 ==

== ENCOUNTER 2024-01-26 14:14 | Outpatient (CLI) | payer MEDICARE, OTHER | END 2024-01-26 14:15 | disposition home or self-care (01) | LOC: BICMAMMO 14:14 | PROVIDERS: ATTEND Family Medicine | DX: Z12.31 Encounter for screening mammogram for malignant neoplasm of breast (principal); Z80.3 Family history of malignant neoplasm of breast | CPT/HCPCS: 77063; 77067 ==